=== PATIENT | male | born 1945 | race Caucasian/White ===

== ENCOUNTER 2019-06-02 15:32 | Inpatient (IN) | payer MEDICARE, MEDICAID, SELFPAY ==
[2019-06-02] VITALS (11 sets, daily range): BP systolic 107–180; BP diastolic 66–104; PULSE 80–122; RESP 16–22; TEMP 36.6–37; O2SAT 93–100; BMI 28.0
--- NOTE | 2019-06-02 15:38 | ED_ITS ---
Entered by Renuka Dorado, acting as scribe for Mihir Gipson DO HPI - SOB/Dyspnea General: Chief Complaint: Shortness of Breath/Dyspnea Stated Complaint: SOB x 1 week Time Seen by Provider: 06/02/19 15:41 Source: patient and EMS Mode of arrival: EMS Limitations: no limitations History of Present Illness: MD elicited complaint: shortness of breath Pertinent past history: COPD and asthma Onset (ago): week(s) (1 week ago) Context: recent illness Timing: constant and progressively worsening Exacerbating factors: exertion, movement and deep breaths Relieving factors: nothing Known history of: COPD Associated symptoms: Reports abdominal pain Review of Systems GI: Reports: abdominal pain [facility] ED PFSH: Social History Smoking and tobacco status: current every day smoker cigarettes Packs smoked per day: 1 Alcohol intake: former Lives independently: Yes History of recent travel: No Course Vital Signs: Vital signs: Vital Signs Temperature 97.8 F 06/02/19 15:36 Pulse Rate 118 H 06/02/19 16:49 Respiratory Rate 20 H 06/02/19 16:49 Blood Pressure 107/76 06/02/19 15:36 Pulse Oximetry 94 06/02/19 16:49 MDM - SOB/Dyspnea Lab Data: Labs: Lab Results 06/02/19 06/02/19 06/02/19 Range/Units 16:20 16:20 16:37 WBC 9.8 (4.0-10.0) 10^3/ uL RBC 3.57 L (4.1-5.3) 10^6/u L Hgb 11.4 L (11.7-16.6) g/dL Hct 36.1 L (42.0-52.0) % MCV 101.1 H (80-94) fL MCH 31.9 (28.0-34.0) pg MCHC 31.6 (30.0-36.0) g/dL RDW 13.3 (12.1-15.1) % Plt Count 416 H (130-400) 10^3/c mm MPV 8.9 (7.4-10.4) fL Neut % (Auto) 75.7 % Lymph % (Auto) 17.1 % Ware % (Auto) 6.0 % Eos % (Auto) 0.3 % Baso % (Auto) 0.6 % Neut # (Auto) 7.4 (1.8-7.7) 10^3/u L Lymph # (Auto) 1.7 (0.8-4.8) 10^3/u L Ware # (Auto) 0.6 (0.2-0.9) 10^3/u L Eos # (Auto) 0.0 (0.0-0.8) 10^3/u L Baso # (Auto) 0.1 (0.0-0.1) 10^3/u L Nucleated RBC % (a uto) 0 % Nucleated RBCs # 0.0 /100WBC Sodium 135 L (136-145) mmol/L Potassium 4.9 (3.5-5.1) mmol/L Chloride 100 (98-107) mmol/L Carbon Dioxide 22 (22-29) mmol/L Anion Gap 17.9 (5-19) BUN 24 H (8-23) mg/dL Creatinine 1.4 H (0.7-1.2) mg/dL Glucose 136 H (65-115) mg/dL Calculated Osmolal ity 279 L (285-295) mOsm/k g Calcium 9.8 (8.5-10.5) mg/dL Total Bilirubin 0.8 (0.15-1.2) mg/dL AST 21 (0-40) U/L ALT 18 (0-41) U/L Alkaline Phosphata se 76 (40-130) IU/L NT-Pro-B Natriuret Pep 17280 H (0-125) pg/mL Total Protein 7.1 (6.6-8.7) g/dL Albumin 3.8 (3.5-5.2) g/dL Globulin 3.3 (1.3-4.6) g/dL Influenza Type A A g Negative (Negative) POC Influenza B Ag Negative (Negative) Discharge Plan Discharge Prescriptions: No Action aspirin 325 mg tablet 325 mg PO DAILY RF: 0 hydrocodone-acetaminophen 10-325 mg tablet 1 tab PO Q6H PRNRF: 0 ascorbate calcium (vitamin C) 500 mg tablet 1 gm PO DAILY RF: 0 ProAir RespiClick 90 mcg/actuation aerosol powdr breath activated 2 inh INHALATION Q6H PRNRF: 0 Spiriva with HandiHaler 18 mcg capsule, w/inhalation device 1 cap INHALATION DAILY RF: 0 atenolol 50 mg tablet 50 mg PO DAILY RF: 0 omeprazole 20 mg capsule,delayed release(DR/EC) 20 mg PO DAILY RF: 0 Coding Level of Care Code ED [facility] Helper Induction for Chg Fwtramaine The documentation recorded by the Estrada sanchez Bridget Annette, accurately reflects the service I personally performed and the decisions made by , Mihir Gipson, Jun 02, 2019 15:32
--- NOTE | 2019-06-02 16:07 | XR_ITS ---
WS: [id number] Portable AP upright chest, 06/02/2019 Clinical Data: dyspnea Comparison: None. Findings: The heart is enlarged and the pulmonary vascularity is increased. No nodules, masses or eff usions are seen. The aortic arch and descending aorta show calcification and tortuosity. No pneumonia or pneumothorax is seen. XR/XR chest 1V portable [id number] Impression: Moderate congestive heart failure.
[2019-06-02 16:33] LABS: Basophils # 0.1 10^3/uL (0.0-0.1); Basophils % 0.6 %; Eosinophils % 0.3 %; Hematocrit 36.1 % (42.0-52.0); Hemoglobin 11.4 g/dL (11.7-16.6); Lymphocytes # 1.7 10^3/uL (0.8-4.8); Lymphocytes % 17.1 %; Mean Corpuscular HGB Conc 31.6 g/dL (30.0-36.0); Mean Corpuscular Hemoglobin 31.9 pg (28.0-34.0); Mean Corpuscular Volume 101.1 fL (80-94); Mean Platelet Volume 8.9 fL (7.4-10.4); Monocytes # 0.6 10^3/uL (0.2-0.9); Neutrophils # 7.4 10^3/uL (1.8-7.7); Neutrophils % 75.7 %; Nucleated Red Blood Cells % 0 %; Platelet Count 416 10^3/cmm (130-400); Red Blood Count 3.57 10^6/uL (4.1-5.3); Red Cell Distribution Width 13.3 % (12.1-15.1); White Blood Count 9.8 10^3/uL (4.0-10.0)
[2019-06-02] MEDS: ipratropium-albuterol 3 mL Neb INHALATION ×2 (16:45→22:21)
[2019-06-02 16:53] LABS: Alanine Aminotransferase 18 U/L (0-41); Albumin Level 3.8 g/dL (3.5-5.2); Alkaline Phosphatase 76 IU/L (40-130); Anion Gap 17.9 (5-19); Aspartate Amino Transferase 21 U/L (0-40); Blood Urea Nitrogen 24 mg/dL (8-23); Calcium 9.8 mg/dL (8.5-10.5); Carbon Dioxide 22 mmol/L (22-29); Chloride 100 mmol/L (98-107); Globulin 3.3 g/dL (1.3-4.6); Glucose 136 mg/dL (65-115); NT Pro B Type Natriuretic Pept 21040 pg/mL (0-125); Osmolality Calculated 279 mOsm/kg (285-295); Potassium 4.9 mmol/L (3.5-5.1); Sodium 135 mmol/L (136-145); Total Bilirubin 0.8 mg/dL (0.15-1.2); Total Protein 7.1 g/dL (6.6-8.7)
[2019-06-02 17:13] LABS: Influenza A by IFA Negative (Negative); Influenza B by IFA Negative (Negative)
--- NOTE | 2019-06-02 17:25 | PC.NURSE ---
EKG performed and shown to ED physician.
[2019-06-02] MEDS: FUROsemide 10 mg/mL SDV 10mL 80 MG IVP (17:36)
--- NOTE | 2019-06-02 18:31 | PM.HP ---
Providers/Chief Complaint Admitting Physician: Lizbeth Bradley MD Primary Care Provider: Mary Zimmerman Chief Complaint: SOB x 1-2 weeks History of Present Illness Dennis Mcintosh is a 73 year old male with PMHx of COPD, Chronic smoker, Chronic atrial fibrillation, Chronic back pain; presents from home for evaluation of worsening shortness of breath, symptoms have been ongoing for 4 months but have significantly worsened over the past week and a half. He initially had shortness of breath particularly with exertion but this has increased to the point where he has shortness of breath at rest, is unable to sleep, maintain a supine position. He states that he was treated for pneumonia approximately 4 months ago has had a chronic cough since then, with some sputum production. Cough frequency/intensity or sputum production have not changed. He is not oxygen dependent at baseline. He is aware of his history of COPD and uses inhalers but does not report a history of heart disease or CHF. Medication list shows atenolol and aspirin presumably for treatment of A. fib. He recently has had difficulty taking his medications due to abdominal discomfort. He is a chronic smoker though over the past several days has not been able to smoke due to not feeling well. He denies having had any fever/chills, chest pain, dizziness/lightheadedness though when his shortness of breath gets worse he has a period where he feels like he will pass out though has not had any true syncopal episodes. He has had some intermittent lower extremity edema and some bloating in his abdomen. No baseline echo to reference on review of medical record. Work-up done in the ER indicates anemia with a hemoglobin of 11.4 normal white count at 9.8 BUN of 24, creatinine of 1.4, blood sugar of 136, BNP greater than 21,000, chest x-ray showing moderate CHF, EKG showing A. fib with current heart rate in the 120s. He has received an albuterol neb treatment as well as an 80 mg dose of IV Lasix. I have requested Cardizem 15 mg IV as patient continues to have A. fib with RVR. Patient responded well to this with heart rate being better controlled in the 80s. Will admit him to [facility] with telemetry for continued IV diuresis. Review of Systems Const: Reports: change in appetite (decreased appetite), fatigue and malaise; Denies: fever or chills Eyes: Denies: change in vision ENMT: Reports: dry mouth; Denies: painful swallowing Card: Reports: swelling of feet/ankles, shortness of breath on exertion and shortness of breath when lying down; Denies: chest pain, palpitations or lightheadedness Resp: Reports: productive cough (clear sputum, chronic); Denies: shortness of breath GI: Reports: abdominal pain, diarrhea and bloating; Denies: nausea, vomiting, vomiting blood or blood in stool : Reports: urinary frequency, urinary dribbling and other (incomplete emptying); Denies: painful urination Musc: Reports: back pain (chronic) Skin/Breast: Denies: rash Neuro: Denies: numbness in extremities, weakness in extremities or frequent falls Psych: Denies: anxiety Medications/Allergies Home Medications Medication Instructions Recorded Confirmed Last Taken Type bisacodyl 5 mg PO DAILY 06/02/19 06/02/19 06/01/19 History guaifenesin [Mucus Relief] 200 mg PO Q4H PRN 06/02/19 06/02/19 06/01/19 History multivitamin [Multiple Vitamins] 1 tab PO DAILY 06/02/19 06/02/19 06/01/19 History vitamin A 10,000 unit PO DAILY 06/02/19 06/02/19 06/01/19 History Allergies Allergy/AdvReac Type Severity Reaction Status Date / Time No Known Allergies Allergy Verified 06/02/19 15:41 PFSH Acute PFSH: Medical History (Updated 06/02/19 @ 18:51 by Lizbeth Bradley MD) A-fib Anxiety Cataracts, bilateral Chronic back pain Depression GERD (gastroesophageal reflux disease) Hiatal hernia History of prostate cancer treated with radiation Hypertension Family History Father CAD (coronary artery disease) Mother Diabetes Social History (Updated 06/02/19 @ 18:42 by Lizbeth Bradley MD) Smoking and tobacco status: current every day smoker cigarettes Packs smoked per day: 1 Years cigarettes smoked: 40 Alcohol intake: former Former alcohol use details: quit 6-7 yrs ago Lives independently: Yes History of recent travel: No Vitals/I&O/Wt Last Vital Signs Temp 97.8 F 06/02/19 15:36 Pulse 118 H 06/02/19 16:49 Resp 20 H 06/02/19 16:49 BP 107/76 06/02/19 15:36 Pulse Ox 94 06/02/19 16:49 Weight last 48 hrs Weight 81.193 kg Physical Exam Const: COMMON NORMALS: no apparent distress and oriented x3 GENERAL APPEARANCE: cooperative and comfortable NUTRITIONAL APPEARANCE: overweight ORIENTATION/CONSCIOUSNESS: Yes awake HENMT: COMMON NORMALS: normocephalic, head/scalp atraumatic, hearing grossly normal bilaterally and moist oral mucous membranes HEAD & SCALP: normocephalic and atraumatic Eye: COMMON NORMALS: PERRL, EOMs intact bilaterally and conjunctivae normal CONJUNCTIVA: Yes conjunctivae normal PUPIL: Yes PERRL Neck/C-Spine: COMMON NORMALS: full ROM GENERAL: Yes normal visual inspection and Yes trachea midline Resp: COMMON NORMALS: normal respiratory effort, no retractions and no use of accessory muscles EFFORT & INSPECTION: Yes able to speak in complete sentences, Yes symmetric chest movement and No tachypneic AUSCULTATION: crackles and diminished lung sounds bilateral OTHER: -on 2-3 L NC, 94% Cardio: COMMON NORMALS: regular rate, regular rhythm, S1 normal heart sound, S2 normal heart sound and no murmurs RATE: tachycardic (intermittently) RHYTHM: abnormal rhythm irregularly irregular HEART SOUNDS: S1 normal and S2 normal GI: COMMON NORMALS: normal to inspection, nondistended, normoactive bowel sounds, soft to palpation and non-tender INSPECTION: Yes central obesity PALPATION: Yes soft Extremity: COMMON NORMALS: normal to inspection and full ROM; negative for no pedal edema NARRATIVE EXTREMITY EXAM: -1+ pitting edema of bilateral LEs Neuro: COMMON NORMALS: oriented x3, moves all extremities, no focal motor deficits and no sensory deficits noted Psych: COMMON NORMALS: mental status grossly normal, thought process normal, cooperative, affect normal and speech normal SPEECH: Yes normal speech THOUGHT PROCESS: normal thought process Skin: COMMON NORMALS: no rashes or lesions noted, no jaundice, no petechiae and no mottling GENERAL SKIN EXAM: no rashes or lesions noted Data : 06/02/19 16:20 06/02/19 16:20 Micro: Microbiology 06/02/19 16:25 Blood Culture - Preliminary Blood SPECIMEN COLLECTED 06/02/19 16:20 Blood Culture - Preliminary Blood SPECIMEN COLLECTED A&P Assessment and plan (1) Acute exacerbation of CHF (congestive heart failure): -Clinically appears to have acute CHF exacerbation as evidenced by increased shortness of breath, lower extremity edema, significant BNP elevation (>21,000) and evidence of fluid overload on imaging -Received 80 mg dose of IV Lasix in ER; continue IV diuresis with Bumex due to noted renal impairment -closely monitor renal function, lytes -daily weights, monitor Is & Os -no baseline Echo on record, ordered -telemetry monitoring -monitor vital signs -monitor respiratory status, supplemental oxygen as needed Status: Acute Qualifiers: Heart failure type: unspecified Qualified Code(s): I50.9 - Heart failure, unspecified Code(s): I50.9 - Heart failure, unspecified (2) Atrial fibrillation with RVR: -has known hx of atrial fibrillation, on Atenolol and full dose ASA -telemetry monitoring -given 15 mg dose of IV Cardizem with rate control -A.fib on ECG -hold atenolol and start on metoprolol -Echo ordered Status: Acute Code(s): I48.91 - Unspecified atrial fibrillation (3) COPD (chronic obstructive pulmonary disease): -has known hx of COPD, not oxygen dependent at baseline -SOB likely due to acute CHF exacerbation rather than COPD exacerbation -Neb treatments, supplemental oxygen as needed -hold off on steroids, abx at this time Status: Acute Qualifiers: COPD type: unspecified COPD Qualified Code(s): J44.9 - Chronic obstructive pulmonary disease, unspecified Code(s): J44.9 - Chronic obstructive pulmonary disease, unspecified Additional A&P Information -Chronic smoker; 1 PPD x > 40 yrs -former EtOH abuse; quit 6-7 yrs ago -Chronic low back pain; on opiates -GERD; on PPI -hx of prostate cancer treated with radiation therapy; has LUTs (dribbling, incomplete emptying, urgency); start on Flomax -Acute macrocytic anemia; monitor H/H; will continue full dose ASA for now -cardiac diet as tolerated -GI ppx with PPI -DVT ppx with lovenox Attestations Medical Necessity Statement*: [facility] stay will require greater than 2 midnights for management of acute CHF exacerbation and A. fib with RVR, needs IV diuresis and telemetry monitoring respectively. Time Spent in Patient Care: Greater than 35 minutes (>than 50% of time spent in counselling and/or direct pt care on unit). Coding Level of Care Code Acute Pediatric Physician for Vida Barr Diagnoses Acute exacerbation of CHF (congestive heart failure) I50.9 Heart failure type: unspecified Atrial fibrillation with RVR I48.91 COPD (chronic obstructive pulmonary disease) J44.9 COPD type: unspecified COPD
--- NOTE | 2019-06-02 19:14 | PC.NURSE ---
Introduced self to patient and initiated vital signs. Patient presents A&O x 4. ABCs intact, MAEW and agreeable to treatment. Respirations are even but somewhat labored. Pt states that the chief complaint for the ER visit today is due to shortness of breath. Pt also complaining of pain in legs, hips, and back. Pt denies any vision disturbances or lightheadedness. Bed left in lowest position in semi-fowlers with side rails up.Reassured patient of needs and will continue to monitor. Awaiting room assignment.
--- NOTE | 2019-06-02 19:16 | PC.NURSE ---
Fluids not given per MD. Pt recently given lasix.
[2019-06-02] MEDS: HYDROcodone-acetaminophen 10-325 mg Tablet 1 TAB PO (21:18)
[2019-06-02] MEDS: bumetanide 0.25 mg/mL SDV 10 mL 1 MG IV (21:20)
[2019-06-02] MEDS: enoxaparin 40 mg/0.4 mL Syringe SUBCUT (21:20)
[2019-06-03] VITALS (11 sets, daily range): BP systolic 78–113; BP diastolic 51–77; PULSE 92–120; RESP 16–20; TEMP 36.1–37; O2SAT 94–98
[2019-06-03] MEDS: dilTIAZem 30 mg Tablet PO (03:02)
[2019-06-03 05:11] LABS: Basophils # 0.1 10^3/uL (0.0-0.1); Basophils % 0.6 %; Eosinophils # 0.1 10^3/uL (0.0-0.8); Eosinophils % 0.5 %; Hemoglobin 12.1 g/dL (11.7-16.6); Mean Corpuscular HGB Conc 32.7 g/dL (30.0-36.0); Mean Corpuscular Hemoglobin 32.8 pg (28.0-34.0); Mean Corpuscular Volume 100.3 fL (80-94); Mean Platelet Volume 9.3 fL (7.4-10.4); Monocytes # 0.7 10^3/uL (0.2-0.9); Monocytes % 6.9 %; Neutrophils # 6.8 10^3/uL (1.8-7.7); Neutrophils % 63.7 %; Nucleated Red Blood Cells % 0 %; Platelet Count 425 10^3/cmm (130-400); Red Blood Count 3.69 10^6/uL (4.1-5.3); Red Cell Distribution Width 13.3 % (12.1-15.1); White Blood Count 10.6 10^3/uL (4.0-10.0)
[2019-06-03 05:27] LABS: Anion Gap 19.1 (5-19); Blood Urea Nitrogen 25 mg/dL (8-23); Carbon Dioxide 27 mmol/L (22-29); Chloride 97 mmol/L (98-107); Glucose 107 mg/dL (65-115); Magnesium 2.1 mg/dL (1.7-2.3); Osmolality Calculated 285 mOsm/kg (285-295); Potassium 4.1 mmol/L (3.5-5.1); Sodium 139 mmol/L (136-145)
[2019-06-03 05:53] LABS: Chol HDL Ratio 5.13 mg/dL (1.0-5.00); Cholesterol 200 mg/dL (0-200); HDL Cholesterol 39 mg/dL (60-100); LDL Cholesterol Calculated 134 mg/dL (50-129); LDL HDL Ratio 3.44 RATIO (0.00-3.22); Thyroid Stimulating Hormone 1.17 uIU/mL (0.27-4.20); Triglycerides 134 mg/dL (0-150)
[2019-06-03 06:08] LABS: Folate Level 15.1 ng/mL (4.5-32.2)
[2019-06-03 06:29] LABS: Vitamin B12 369 pg/mL (232-1245)
[2019-06-03] MEDS: HYDROcodone-acetaminophen 10-325 mg Tablet 1 TAB PO ×2 (06:42→19:44)
[2019-06-03 06:59] LABS: Estmated Average Glucose 123; Hemoglobin A1C 5.9 % (4.0-6.0)
[2019-06-03] MEDS: bumetanide 0.25 mg/mL SDV 10 mL 1 MG IV (08:08)
[2019-06-03] MEDS: multivitamin therapeutic Tablet 1 TAB PO (08:09)
[2019-06-03] MEDS: pantoprazole DR 40 mg Tablet PO (08:09)
[2019-06-03] MEDS: bisacodyl 5 mg Tablet PO (08:09)
[2019-06-03] MEDS: aspirin 325 mg Tablet PO (08:09)
[2019-06-03] MEDS: metoprolol tartrate 25 mg Tablet PO ×2 (08:09→18:14)
[2019-06-03] MEDS: tamsulosin 0.4 mg Capsule PO (08:09)
--- NOTE | 2019-06-03 11:20 | PC.RESP ---
Patient given Pulmonary Rehab and Smoking Cessation information.
--- NOTE | 2019-06-03 11:31 | ECG_ITS ---
Measurements Intervals [place] Rate: 104 P: [place]: 0 QRS: 260 QRSD: 83 T: 255 QT: 334 QTc: 441 ATRIAL FIBRILLATION WITH RAPID VENTRICULAR RESPONSE WITH ABERRANT CONDUCTION OR VENTRICULAR PREMATURE COMPLEXES MARKED RIGHT AXIS DEVIATION [QRS AXIS > 100] POSSIBLE RIGHT VENTRICULAR CONDUCTION DELAY [RSR (QR) IN V1/V2] ANTERIOR MYOCARDIAL INFARCTION [40+ ms Q WAVE AND/OR ST/T ABNORMALITY IN V3/V4], OF INDETERMINATE AGE No previous ECG available for comparison Electronically Signed On 06-03-2019 18:23:43 CDT by Bernardino Saab M.D. [email or web address]
--- NOTE | 2019-06-03 11:32 | P.PN_ITS ---
Subjective Subjective: Interval history: AM labs noted, no acute overnight events reported, looks like he is breathing easier though continues to be dyspneic with exertion. On 3L NC, renal function stable. Noted hypotension, manual BP-90/60, will hold diuretics and give 500 mL bolus, recheck BP. Denies dizziness/lightheadedness. Wants to get salt with his food. Noted atrial fibrillation with intermittent RVR (up to 120) on review of telemetry. Medications: Reviewed: Yes Medication Review Details: Active Medications Generic Name Dose Route Start Last Admin Trade Name Freq PRN Reason Stop Dose Admin Acetaminophen 650 mg 06/02/19 20:35 Tylenol PO Q6H PRN Mild/Mod Pain Or Temp >/= 101 Hydrocodone Bitart /Acetaminophen 1 tab 06/02/19 20:35 06/03/19 06:42 [place] 10-325 Mg PO 1 tab Q6H PRN Administration SEVERE PAIN Albuterol/Ipratrop ium 3 ml 06/02/19 20:35 06/02/19 22:21 Duoneb INHALATION 3 ml Q6H PRN Administration SHORTNESS OF LULY TH Aspirin 325 mg 06/03/19 09:00 06/03/19 08:09 Aspirin PO 325 mg DAILY STEPHY Administration Bisacodyl 5 mg 06/03/19 09:00 06/03/19 08:09 Dulcolax PO 5 mg DAILY STEPHY Administration Bumetanide 1 mg 06/02/19 20:35 06/03/19 08:08 Bumex IV 1 mg Q12H STEPHY Administration Enoxaparin Sodium 40 mg 06/02/19 20:35 06/02/19 21:20 Lovenox SUBCUT 40 mg Q24H STEPHY Administration Metoprolol Tartrat e 25 mg 06/03/19 09:00 06/03/19 08:09 Lopressor PO 25 mg BID STEPHY Administration Morphine Sulfate 2 mg 06/02/19 20:35 Morphine IVP Q4H PRN SEVERE PAIN Multivitamins Ther apeutic 1 tab 06/03/19 09:00 06/03/19 08:09 Multivitamin Tab PO 1 tab DAILY STEPHY Administration Non-Formulary Medi cation 200 mg 06/02/19 20:35 Guaifenesin [Muc us Relief] PO Q4H PRN Congestion Ondansetron HCl 4 mg 06/02/19 20:35 Zofran IVP Q6H PRN vomiting, or N/V if npo Pantoprazole Sodiu m 40 mg 06/03/19 09:00 06/03/19 08:09 Protonix PO 40 mg DAILY STEPHY Administration Tamsulosin HCl 0.4 mg 06/03/19 09:00 06/03/19 08:09 Flomax PO 0.4 mg DAILY STEPHY Administration No Known Allergies Allergy (Verified 06/02/19 15:41) Vitals/I&O/Wt Last Vital Signs Temp 98.3 F 06/03/19 11:13 Pulse 95 06/03/19 11:13 Resp 18 06/03/19 11:13 BP 78/57 06/03/19 11:13 Pulse Ox 97 06/03/19 11:13 06/02/19 06/03/19 06/03/19 22:59 06:59 14:59 Intake Total 200 / 200 120 / 120 Balance 200 / 200 120 / 120 Weight last 48 hrs Weight 80.83 kg Weight 80.371 kg Weight 81.193 kg Physical Exam Const: COMMON NORMALS: no apparent distress and oriented x3 GENERAL APPEARANCE: cooperative and comfortable NUTRITIONAL APPEARANCE: overweight ORIENTATION/CONSCIOUSNESS: Yes awake HENMT: COMMON NORMALS: normocephalic, head/scalp atraumatic, hearing grossly normal bilaterally and moist oral mucous membranes HEAD & SCALP: normocephalic and atraumatic Eye: COMMON NORMALS: PERRL, EOMs intact bilaterally and conjunctivae normal CONJUNCTIVA: Yes conjunctivae normal PUPIL: Yes PERRL Neck/C-Spine: COMMON NORMALS: full ROM GENERAL: Yes normal visual inspection and Yes trachea midline Resp: COMMON NORMALS: normal respiratory effort, no retractions and no use of accessory muscles EFFORT & INSPECTION: Yes able to speak in complete sentences, Yes symmetric chest movement and No tachypneic AUSCULTATION: crack les and diminished lung sounds bilateral OTHER: -on 3 L NC, 97% Cardio: COMMON NORMALS: regular rate, S1 normal heart sound, S2 normal heart sound and no murmurs RATE: regular rate and tachycardic (intermittently) RHYTHM: abnormal rhythm irregularly irregular HEART SOUNDS: S1 normal and S2 normal GI: COMMON NORMALS: normal to inspection, nondistended, normoactive bowel sounds, soft to palpation and non-tender INSPECTION: Yes central obesity PALPATION: Yes soft Extremity: COMMON NORMALS: normal to inspection, full ROM and no clubbing, cyanosis or edema; negative for no pedal edema NARRATIVE EXTREMITY EXAM: -scattered varicosities on bilateral legs Neuro: COMMON NORMALS: oriented x3, moves all extremities, no focal motor deficits and no sensory deficits noted Psych: COMMON NORMALS: mental status grossly normal, thought process normal, cooperative, affect normal and speech normal SPEECH: Yes normal speech THOUGHT PROCESS: normal thought process Skin: COMMON NORMALS: no rashes or lesions noted, no jaundice, no petechiae and no mottling GENERAL SKIN EXAM: no rashes or lesions noted Data : 06/03/19 04:13 06/03/19 04:13 Micro: Microbiology 06/02/19 16:25 Blood Culture - Preliminary Blood SPECIMEN COLLECTED 06/02/19 16:20 Blood Culture - Preliminary Blood SPECIMEN COLLECTED A&P Assessment and plan (1) Acute exacerbation of CHF (congestive heart failure): -Clinically appears to have acute CHF exacerbation as evidenced by increased shortness of breath, lower extremity edema, significant BNP elevation (>21,000) and evidence of fluid overload on imaging -Received 80 mg dose of IV Lasix in ER; continue IV diuresis with Bumex due to noted renal impairment; hold this for now given hypotension this AM. -closely monitor renal function, lytes -daily weights, monitor Is & Os -no baseline Echo on record, ordered -telemetry monitoring -monitor vital signs -continue to monitor respiratory status, supplemental oxygen as needed Status: Acute Qualifiers: Heart failure type: unspecified Qualified Code(s): I50.9 - Heart failure, unspecified Code(s): I50.9 - Heart failure, unspecified (2) Atrial fibrillation with RVR: -has known hx of atrial fibrillation, on Atenolol and full dose ASA -telemetry monitoring -given 15 mg dose of IV Cardizem with rate control -A.fib on ECG -hold atenolol and started on metoprolol -Echo ordered Status: Acute Code(s): I48.91 - Unspecified atrial fibrillation (3) COPD (chronic obstructive pulmonary disease): -has known hx of COPD, not oxygen dependent at baseline -SOB likely due to acute CHF exacerbation rather than COPD exacerbation -Neb treatments, supplemental oxygen as needed -hold off on steroids, abx at this time Status: Acute Qualifiers: COPD type: unspecified COPD Qualified Code(s): J44.9 - Chronic ob structive pulmonary disease, unspecified Code(s): J44.9 - Chronic obstructive pulmonary disease, unspecified Additional A&P Information -Chronic smoker; 1 PPD x > 40 yrs -former EtOH abuse; quit 6-7 yrs ago -Chronic low back pain; on opiates -GERD; on PPI -hx of prostate cancer treated with radiation therapy; has LUTs (dribbling, incomplete emptying, urgency); start on Flomax -Acute macrocytic anemia; monitor H/H; will continue full dose ASA for now -cardiac diet as tolerated -GI ppx with PPI -DVT ppx with lovenox -Dispo: home -Code status: FULL code Attestations Medical Necessity Statement*: Patient requires hospitalization for continued management of acute CHF exacerbation on diuresis, and atrial fibrillation with intermittent RVR. Time Spent in Patient Care: 16 - 35 minutes (>than 50% of time spent in counselling and/or direct pt care on unit) . Coding Level of Care Code Acute Supervisor Steno Pool for Vida Barr Diagnoses Acute exacerbation of CHF (congestive heart failure) I50.9 Heart failure type: unspecified Atrial fibrillation with RVR I48.91 COPD (chronic obstructive pulmonary disease) J44.9 COPD type: unspecified COPD
[2019-06-03 13:24] LABS: D Dimer 2.31 ug/mIFEU (0-0.59)
--- NOTE | 2019-06-03 14:18 | PC.NURSE ---
In patient's room. Spoke with patient's son at this time. Patient gave me his verbal permission. Patient's son is wanting to come and visit his father. Explained to patient's son that they are not allowing any visitors at this time for precautions regarding the COVID-19. Patient's son verbalized understanding.
--- NOTE | 2019-06-03 14:34 | NM_ITS ---
WS: [id number] Ventilation/perfusion lung scan, 06/03/2019 Clinical Data: elevated d-dimer, evaluate for PE Comparison: Portable chest, 06/02/2019 Findings: Ventilation lung scan: 32.4 mCi of technetium 99m DTPA were utilized to visualize the lungs. The lung s filled normally. There are no ventilation defects. No subsegmental defects could be seen. Perfusion lung scan: After the intravenous injection of 5.1 mCi of technetium 99m MAA multiple sequen tial imaging of the lungs were obtained. The distribution of the radionuclide was normal. There were no perfusion filling defects. No subsegmental defects could be seen. NM/NM pul vent and perfus* [id number] Impression: Negative ventilation lung scan. Impression: Negative perfusion lung scan. Low probability of pulmonary embolic disease.
--- NOTE | 2019-06-03 15:15 | PC.NURSE ---
Patient taken to Nuclear Medicine at this time.
--- NOTE | 2019-06-03 17:32 | PM.CONSULT ---
Providers/Reason For Consult Consulting Physican/Specialty*: Dr. Hernandez, cardiology Reason for Consult*: Newly diagnosed congestive heart failure. Attending Physician: Lizbeth Bradley MD History of Present Illness History of Present Illness Dennis Mcintosh is a 73 year old male with past medical history of COPD, chronic active smoker, h/o alcohol abuse (quit 3-4 years ago) and history of atrial fibrillation at least for last 3-4 years on aspirin and atenolol. He was hospitalized with worsening shortness of breath for past several weeks, orthopnea, PND and CALDERON with minimal exertion for last 1-2 weeks. He was treated for pneumonia 3 to 4 months back and was treated with antibiotics. He denies any recent URI or UTI-like symptoms. Denies any chest discomfort. Chest x-ray showed pulmonary congestion and NT proBNP greater than 21,000. EKG showed atrial fibrillation with rapid ventricular response and aberrantly conducted beats. He received lasix 80 mg IV x 1 and bumex earlier this morning. UO not documented. He underwent echocardiogram that showed severely decreased LV function with RWMA. I have been asked to assist in further management. Review of Systems Const: Denies: fever or chills Eyes: Denies: change in vision ENMT: Denies: nasal discharge or nasal congestion Card: Reports: irregular heart rhythm, edema, shortness of breath on exertion and shortness of breath when lying down; Denies: chest pain, syncope or pre-syncope Resp: Reports: shortness of breath, productive cough (whitish phlegm) and wheezing; Denies: coughing up blood GI: Denies: abdominal pain, nausea, vomiting, blood in stool or black tarry stool : Denies: difficulty urinating, painful urination or blood in urine Musc: Reports: extremity swelling Skin/Breast: Denies: rash Neuro: Denies: weakness in extremities or slurred speech Psych: Denies: anxiety or depression Endo: Denies: change in body appearance Jack/Lymph: Denies: petechiae or purpura All/Imm: Denies: throat swelling or tongue swelling Meds/Allergies Home Medications and Allergies Home Medications Medication Instructions Recorded Confirmed Type albuterol sulfate 90 mcg/actuation 2 inh INHALATION Q6H PRN 05/04/19 06/02/19 History breath activated powder inhaler atenolol 50 mg tablet 50 mg PO DAILY 05/04/19 06/02/19 History omeprazole 20 mg capsule,delayed 20 mg PO DAILY 05/04/19 06/02/19 History release tiotropium bromide 18 mcg capsule 1 cap INHALATION DAILY 05/04/19 06/02/19 History with inhalation device ascorbate calcium (vitamin C) 500 1 gm PO DAILY tab 05/07/19 06/02/19 History mg tablet aspirin 325 mg tablet 325 mg PO DAILY 05/07/19 06/02/19 History hydrocodone 10 mg-acetaminophen 1 tab PO Q6H PRN 05/07/19 06/02/19 History 325 mg tablet bisacodyl 5 mg PO DAILY 06/02/19 06/02/19 History guaifenesin [Mucus Relief] 200 mg PO Q4H PRN 06/02/19 06/02/19 History multivitamin [Multiple Vitamins] 1 tab PO DAILY 06/02/19 06/02/19 History vitamin A 10,000 unit PO DAILY 06/02/19 06/02/19 History Allergies Allergy/AdvReac Type Severity Reaction Status Date / Time No Known Allergies Allergy Verified 06/02/19 15:41 Current Medications Current Medications Generic Name Dose Route Start Last Admin Trade Name Freq PRN Reason Stop Dose Admin Hydrocodone Bitart/Acetaminophen 1 tab 06/02/19 20:35 06/03/19 06:42 [place] 10-325 Mg PO 1 tab Q6H PRN Administration SEVERE PAIN Albuterol/Ipratropium 3 ml 06/02/19 20:35 06/02/19 22:21 Duoneb INHALATION 3 ml Q6H PRN Administration SHORTNESS OF BREATH Aspirin 325 mg 06/03/19 09:00 06/03/19 08:09 Aspirin PO 325 mg DAILY STEPHY Administration Bisacodyl 5 mg 06/03/19 09:00 06/03/19 08:09 Dulcolax PO 5 mg DAILY STEPHY Administration Bumetanide 1 mg 06/02/19 20:35 06/03/19 08:08 Bumex IV 1 mg Q12H STEPHY Administration Enoxaparin Sodium 40 mg 06/02/19 20:35 06/02/19 21:20 Lovenox SUBCUT 40 mg Q24H STEPHY Administration Metoprolol Tartrate 25 mg 06/03/19 09:00 06/03/19 08:09 Lopressor PO 25 mg BID STEPHY Administration Multivitamins Therapeutic 1 tab 06/03/19 09:00 06/03/19 08:09 Multivitamin Tab PO 1 tab DAILY STEPHY Administration Pantoprazole Sodium 40 mg 06/03/19 09:00 06/03/19 08:09 Protonix PO 40 mg DAILY STEPHY Administration Tamsulosin HCl 0.4 mg 06/03/19 09:00 06/03/19 08:09 Flomax PO 0.4 mg DAILY STEPHY Administration PFSH Acute PFSH: Medical History A-fib Anxiety Cataracts, bilateral Chronic back pain Depression GERD (gastroesophageal reflux disease) Hiatal hernia History of prostate cancer treated with radiation Hypertension Family History Father CAD (coronary artery disease) Mother Diabetes Social History (Updated 06/02/19 @ 18:42 by Lizbeth Bradley MD) Smoking and tobacco status: current every day smoker cigarettes Packs smoked per day: 1 Years cigarettes smoked: 40 Alcohol intake: former Former alcohol use details: quit 6-7 yrs ago Substance/Drug Use: current Substance/Drug use frequency: Special occassions/opportunity only Substance/Drug use type: Marijuana Lives independently: Yes History of recent travel: No Vitals/I&O/Wt Last Vital Signs Temp 98.3 F 06/03/19 16:45 Pulse 114 H 06/03/19 16:45 Resp 18 06/03/19 16:45 BP 91/58 06/03/19 16:45 Pulse Ox 97 06/03/19 16:45 06/03/19 06/03/19 06/03/19 06:59 14:59 22:59 Intake Total 200 / 200 180 / 180 Balance 200 / 200 180 / 180 Weight last 48 hrs Weight 178 lb 3.2 oz Weight 177 lb 3 oz Weight 179 lb Physical Exam Const: COMMON NORMALS: no apparent distress, average body habitus, oriented x3, alert and well nourished GENERAL APPEARANCE: cooperative, comfortable, well kempt and well developed ORIENTATION/CONSCIOUSNESS: Yes oriented to person, Yes oriented to place and Yes oriented to time HENMT: COMMON NORMALS: normocephalic, head/scalp atraumatic, hearing grossly normal bilaterally, external ears normal, external nose normal and moist oral mucous membranes HEAD & SCALP: normocephalic and atraumatic FACE & SINUS: face symmetric NOSE: external nose normal EXTERNAL EAR: Yes external ears normal MOUTH: oral and palatal mucosa normal Eye: COMMON NORMALS: PERRL, EOMs intact bilaterally and conjunctivae normal CONJUNCTIVA: Yes conjunctivae normal SCLERA: sclerae normal PUPIL: Yes PERRL Neck/C-Spine: COMMON NORMALS: no lymphadenopathy, supple and no JVD; negative for no carotid bruits Resp: COMMON NORMALS: normal respiratory effort; negative for no use of accessory muscles AUSCULTATION: no crackles, rales (coarse), no rhonchi, wheezes and bronchial breath sounds (prolonged expiration) Cardio: COMMON NORMALS: no JVD and peripheral pulses 2+ throughout JUGULAR VENOUS DISTENTION: no JVD PALPATION: normal PMI and no thrill RATE: tachycardic RHYTHM: abnormal rhythm irregularly irregular HEART SOUNDS: no click, no gallops and no murmurs BRUITS: no carotid bruits PERIPHERAL PULSES: pulses 2+ throughout GI: COMMON NORMALS: normal to inspection, nondistended, normoactive bowel sounds, soft to palpation and non-tender PALPATION: Yes soft Neuro: COMMON NORMALS: oriented x3 and no focal motor deficits SENSORIUM/ORIENTATION: Yes alert, Yes oriented to person, Yes oriented to place and Yes oriented to time Psych: COMMON NORMALS: thought process normal APPEARANCE: Yes well kempt THOUGHT PROCESS: normal thought process THOUGHT CONTENT: Yes normal thought content ATTENTION/CONCENTRATION: Yes attention grossly intact Data Labs: Other Labs: Laboratory Tests 06/02/19 06/03/19 06/03/19 16:20 04:13 04:13 D-Dimer Hemoglobin A1c 5.9 Calcium 10.0 Magnesium 2.1 Alkaline Phosphata se 76 NT-Pro-B Natriuret Pep 36249 H Total Protein 7.1 Albumin 3.8 Globulin 3.3 Triglycerides Cholesterol LDL Cholesterol, C alc HDL Cholesterol Vitamin B12 Folate TSH 06/03/19 06/03/19 06/03/19 04:13 04:13 12:51 D-Dimer 2.31 H Hemoglobin A1c Calcium Magnesium Alkaline Phosphata se NT-Pro-B Natriuret Pep Total Protein Albumin Globulin Triglycerides 134 Cholesterol 200 LDL Cholesterol, C alc 134 H HDL Cholesterol 39 L Vitamin B12 369 Folate 15.1 TSH 1.17 Micro: Micro: Microbiology 06/02/19 16:25 Blood Culture - Pr eliminary Blood NEGATIVE TO YONIS E 06/02/19 16:20 Blood Culture - Pr eliminary Blood NEGATIVE TO YONIS E Imaging^: Echo: I personally reviewed and interpreted this imaging study as follows: My impression: CONCLUSIONS 1. Mildly increased left ventricular cavity size. Severely decreased left ventricular systolic function. Left ventricular ejection fraction is estimated at 25 %. There is severe hypokinesis of mid to distal anterior, mid to distal inferior, mid to distal anteroseptal, inferoseptal, inferolateral, anterolateral and apical hazel. 2. Normal right ventricular size and systolic function. 3. Mildly increased left atrial size. 4. Severe mitral valve regurgitation. 5. Moderate tricuspid valve regurgitation. 6. Severe pulmonary hypertension with pulmonary artery pressure estimated at 56 mmHg. 7. The above findings may represent multivessel coronary artery disease or stress-induced cardiomyopathy. A&P Assessment and plan (1) Acute exacerbation of CHF (congestive heart failure): Newly diagnosed CHF; No recent cardiac work up. Severely decreased LV function with RWMA. -continue diuresis with Bumex. I/O charting, fluid restriction to 1500 ml and daily weight. -Plan for [facility] once euvolemic. -BP soft, closely monitor. Status: Acute Qualifiers: Heart failure type: unspecified Qualified Code(s): I50.9 - Heart failure, unspecified Code(s): I50.9 - Heart failure, unspecified (2) Atrial fibrillation with RVR: [id number]= 2/9 , 1 for age and 1 for CHF. -Start on lovenox. increase metoprolol to 25 mg TID. May have to add digoxin. -I will avoid using amiodarone. Status: Acute Code(s): I48.91 - Unspecified atrial fibrillation (3) Severe mitral regurgitation: Status: Acute Code(s): I34.0 - Nonrheumatic mitral (valve) insufficiency (4) COPD (chronic obstructive pulmonary disease): Status: Acute Qualifiers: COPD type: unspecified COPD Qualified Code(s): J44.9 - Chronic obstructive pulmonary disease, unspecified Code(s): J44.9 - Chronic obstructive pulmonary disease, unspecified (5) Smoker: Status: Acute Code(s): F17.200 - Nicotine dependence, unspecified, uncomplicated Additional A&P Information PREETI-likely cardiorenal, f/u BMP with diuresis. Coding Level of Care Code Acute [employer] for Chg Fwd Exam Comprehensive Diagnoses Acute exacerbation of CHF (congestive heart failure) I50.9 Heart failure type: unspecified Atrial fibrillation with RVR I48.91 Severe mitral regurgitation I34.0 COPD (chronic obstructive pulmonary disease) J44.9 COPD type: unspecified COPD Smoker F17.200
[2019-06-03] MEDS: nicotine 14 mg Patch 1 PATCH TRANSDERMA (19:44)
[2019-06-03] MEDS: enoxaparin 80 mg/0.8 mL Syringe SUBCUT (19:49)
--- NOTE | 2019-06-03 20:35 | USCV_ITS ---
Dayna Dennis Age: 73 Gender: M : 1945 Exam Date: 06/03/2019 06:19 Ordering Phys: Lizbeth Bradley MD Technologist: SARAH FELDER Exam Location: [facility] – [place] Indication: ACUTE CHF EXACERBATION BP: 87 / 51 HR: 85 Rhythm: Sinus Technical Quality: Adequate MEASUREMENTS (Male / Female) Normal Values 2D ECHO LV Diastolic Diameter PLAX 4.3 cm 4.2 - 5.9 / 3.9 - 5.3 cm LV Systolic Diameter PLAX 3.6 cm IVS Diastolic Thickness 0.8 cm 0.6 - 1.0 / 0.6 - 0.9 cm IVS Systolic Thickness 0.9 cm LVPW Diastolic Thickness 1.0 cm 0.6 - 1.0 / 0.6 - 0.9 cm LVPW Systolic Thickness 1.3 cm LVOT Diameter 2.0 cm LV Ejection Fraction 2D Teich 36.3 % LV Ejection Fraction MOD 2C 43.3 % LV Ejection Fraction 2C AL 44.1 % LA Diameter 3.7 cm LA Width 4.0 cm LA Height 6.0 cm RA Width 4.7 cm RA Height 6.4 cm Aorta at Sinotubular Diameter 2.6 cm M-MODE LV Diastolic Diameter MM 4.9 cm 4.2 - 5.9 / 3.9 - 5.3 cm LV Systolic Diameter MM 4.0 cm LV Ejection Fraction MM Teich 37.7 % IVS Diastolic Thickness MM 1.0 cm 0.6 - 1.0 / 0.6 - 0.9 cm IVS Systolic Thickness MM 1.1 cm LVPW Diastolic Thickness MM 0.9 cm 0.6 - 1.0 / 0.6 - 0.9 cm LVPW Systolic Thickness MM 1.4 cm Aortic Annulus Diameter 2.9 cm LA Ao Ratio MM 1.3 MV E Point Septal Separation 0.9 cm DOPPLER AV Peak Velocity 104.0 cm/s LVOT Peak Velocity 68.0 cm/s AV Area Cont Eq vti 2.0 cm squared AV Area Cont Eq pk 2.1 cm squared MV Area PHT 4.9 cm squared MV E' Velocity 142.0 cm/s TR Peak Velocity 345.8 cm/s TR Peak Gradient 47.8 mmHg TR Mean Velocity 264.4 cm/s TR Mean Gradient 29.8 mmHg TR Velocity Time Integral 101.3 cm TV Peak E Velocity 57.0 cm/s Right Atrial Pressure 8.0 mmHg Pulmonary Artery Systolic Pressu 55.8 mmHg PV Peak Velocity 81.0 cm/s RV Acceleration Time 0.1 s RV Ejection Time 0.3 s RV AcT/ET 0.3 FINDINGS Left Ventricle Mildly increased left ventricular cavity size. Severely decreased left ventricular systolic function. Left ventricular ejection fraction is estimated at 25 %. There is severe hypokinesis of mid to distal anterior, mid to distal inferior, mid to distal anteroseptal, inferolateral, anterolateral, entire inferoseptal and apical hazel. Abnormal septal motion consistent with conduction abnormality. Rhythm precludes evaluation of diastolic function. Right Ventricle Normal right ventricular size and systolic function. Right ventricular systolic pressure 55.8 mmHg. Right Atrium Normal right atrial size. Right atrial pressure estimated at 8 mmHg. Left Atrium Mildly increased left atrial size. Mitral Valve Thickened mitral valve. No mitral valve stenosis. Severe mitral valve regurgitation. Aortic Valve Structurally normal trileaflet aortic valve. Tricuspid Valve Structurally normal tricuspid valve. No tricuspid valve stenosis. Moderate tricuspid valve regurgitation. Pulmonic Valve Pulmonic valve not well visualized. Trace pulmonary valve regurgitation. Pericardium No pericardial effusion. Aorta Normal size aortic root and proximal ascending aorta. CONCLUSIONS 1. Mildly increased left ventricular cavity size. Severely decreased left ventricular systolic function. Left ventricular ejection fraction is estimated at 25 %. There is severe hypokinesis of mid to distal anterior, mid to distal inferior, mid to distal anteroseptal, inferoseptal, inferolateral, anterolateral and apical hazel. 2. Normal right ventricular size and systolic function. 3. Mildly increased left atrial size. 4. Severe mitral valve regurgitation. 5. Moderate tricuspid valve regurgitation. 6. Severe pulmonary hypertension with pulmonary artery pressure estimated at 56 mmHg. 7. The above findings may represent multivessel coronary artery disease or stress-induced cardiomyopathy. No prior similar studies to compare. Emilia Hernandez MD (Electronically Signed) Final Date: 03 June 2019 16:52 S
[2019-06-04] VITALS (10 sets, daily range): BP systolic 100–119; BP diastolic 66–74; PULSE 83–138; RESP 16–22; TEMP 36.4–37; O2SAT 94–99
[2019-06-04] MEDS: metoprolol tartrate 25 mg Tablet PO ×3 (01:00→17:50)
--- NOTE | 2019-06-04 03:30 | PC.NURSE ---
Patient heart rate currently running 80s to mid 100s. During exertion heart rate will increase to 110s to 130s however does not maintain this rate for long periods. Telemetry Patient denies any discomforts. No distress observed.
[2019-06-04 04:42] LABS: Basophils # 0.1 10^3/uL (0.0-0.1); Eosinophils # 0.1 10^3/uL (0.0-0.8); Hemoglobin 10.7 g/dL (11.7-16.6); Lymphocytes # 2.1 10^3/uL (0.8-4.8); Lymphocytes % 27.4 %; Mean Corpuscular HGB Conc 32.4 g/dL (30.0-36.0); Mean Corpuscular Hemoglobin 31.9 pg (28.0-34.0); Mean Corpuscular Volume 98.5 fL (80-94); Mean Platelet Volume 9.3 fL (7.4-10.4); Monocytes # 0.6 10^3/uL (0.2-0.9); Monocytes % 7.7 %; Neutrophils # 4.8 10^3/uL (1.8-7.7); Neutrophils % 62.5 %; Nucleated Red Blood Cells % 0 %; Platelet Count 375 10^3/cmm (130-400); Red Blood Count 3.35 10^6/uL (4.1-5.3); Red Cell Distribution Width 12.9 % (12.1-15.1); White Blood Count 7.6 10^3/uL (4.0-10.0)
[2019-06-04 04:57] LABS: Anion Gap 17.8 (5-19); Blood Urea Nitrogen 24 mg/dL (8-23); Calcium 9.1 mg/dL (8.5-10.5); Carbon Dioxide 26 mmol/L (22-29); Chloride 94 mmol/L (98-107); Glucose 117 mg/dL (65-115); Osmolality Calculated 276 mOsm/kg (285-295); Potassium 3.8 mmol/L (3.5-5.1); Sodium 134 mmol/L (136-145)
[2019-06-04] MEDS: aspirin 325 mg Tablet PO (08:32)
[2019-06-04] MEDS: HYDROcodone-acetaminophen 10-325 mg Tablet 1 TAB PO ×2 (08:33→19:15)
[2019-06-04] MEDS: pantoprazole DR 40 mg Tablet PO (08:34)
[2019-06-04] MEDS: tamsulosin 0.4 mg Capsule PO (08:35)
[2019-06-04] MEDS: multivitamin therapeutic Tablet 1 TAB PO (08:35)
[2019-06-04] MEDS: bisacodyl 5 mg Tablet PO (08:35)
[2019-06-04] MEDS: nicotine 14 mg Patch 1 PATCH TRANSDERMA (08:36)
[2019-06-04] MEDS: ipratropium-albuterol 3 mL Neb INHALATION ×3 (09:34→20:53)
--- NOTE | 2019-06-04 10:30 | PM.PN ---
Subjective Subjective: Interval history: Morning labs noted, renal impairment persists and is slightly worse today, no documentation of urine output overnight but per his report he has voided. Per telemetry remains in A. fib with RVR. Blood pressure seems to be a little bit more stable today. Continues to require oxygen currently on 2.5 L nasal cannula. Has been afebrile. Case discussed earlier this morning with Dr. Hernandez. Is currently on therapeutic Lovenox. Sitting up in bed during my rounds earlier this afternoon, with him, has had some difficulty voiding likely secondary to BPH, emphasized need to inform nursing staff when he voids to allow for accurate ins and outs. Medications: Reviewed: Yes Medication Review Details: Active Medications Generic Name Dose Route Start Last Admin Trade Name Freq PRN Reason Stop Dose Admin Acetaminophen 650 mg 06/02/19 20:35 Tylenol PO Q6H PRN Mild/Mod Pain Or Temp >/= 101 Hydrocodone Bitart /Acetaminophen 1 tab 06/02/19 20:35 06/04/19 08:33 [place] 10-325 Mg PO 1 tab Q6H PRN Administration SEVERE PAIN Albuterol/Ipratrop ium 3 ml 06/02/19 20:35 06/04/19 09:34 Duoneb INHALATION 3 ml Q6H PRN Administration SHORTNESS OF LULY TH Aspirin 325 mg 06/03/19 09:00 06/04/19 08:32 Aspirin PO 325 mg DAILY STEPHY Administration Bisacodyl 5 mg 06/03/19 09:00 06/04/19 08:35 Dulcolax PO 5 mg DAILY STEPHY Administration Bumetanide 1 mg 06/02/19 20:35 06/03/19 08:08 Bumex IV 1 mg Q12H STEPHY Administration Enoxaparin Sodium 80 mg 06/03/19 20:00 06/04/19 08:36 Lovenox SUBCUT Not Given Q12H STEPHY Metoprolol Tartrat e 25 mg 06/04/19 02:00 06/04/19 10:22 Lopressor PO 25 mg Q8H STEPHY Administration Morphine Sulfate 2 mg 06/02/19 20:35 Morphine IVP Q4H PRN SEVERE PAIN Multivitamins Ther apeutic 1 tab 06/03/19 09:00 06/04/19 08:35 Multivitamin Tab PO 1 tab DAILY STEPHY Administration Nicotine 1 patch 06/03/19 21:00 06/04/19 08:36 Nicoderm 14 Mg P atch TRANSDERMA 1 patch DAILY STEPHY Administration Non-Formulary Medi cation 200 mg 06/02/19 20:35 Guaifenesin [Muc us Relief] PO Q4H PRN Congestion Ondansetron HCl 4 mg 06/02/19 20:35 Zofran IVP Q6H PRN vomiting, or N/V if npo Pantoprazole Sodiu m 40 mg 06/03/19 09:00 06/04/19 08:34 Protonix PO 40 mg DAILY STEPHY Administration Tamsulosin HCl 0.4 mg 06/03/19 09:00 06/04/19 08:35 Flomax PO 0.4 mg DAILY STEPHY Administration No Known Allergies Allergy (Verified 06/02/19 15:41) Vitals/I&O/Wt Last Vital Signs Temp 97.8 F 06/04/19 07:34 Pulse 126 H 06/04/19 09:35 Resp 17 06/04/19 09:35 BP 103/69 06/04/19 07:34 Pulse Ox 95 06/04/19 09:35 06/03/19 06/04/19 06/04/19 22:59 06:59 14:59 Intake Total 120 / 300 120 / 120 Balance 120 / 300 120 / 120 Weight last 48 hrs Weight 80.83 kg Weight 80.371 kg Weight 81.193 kg Physical Exam Const: COMMON NORMALS: no apparent distress and oriented x3 GENERAL APPEARANCE: cooperative and comfortable NUTRITIONAL APPEARANCE: overweight ORIENTATION/CONSCIOUSNESS: Yes awake HENMT: COMMON NORMALS: normocephalic, head/scalp atraumatic, hearing grossly normal bilaterally and moist oral mucous membranes HEAD & SCALP: normocephalic and atraumatic Eye: COMMON NORMALS: PERRL, EOMs intact bilaterally and conjunctivae normal CONJUNCTIVA: Yes conjunctivae normal PUPIL: Yes PERRL Neck/C-Spine: COMMON NORMALS: full ROM GENERAL: Yes normal visual inspection and Yes trachea midline Resp: COMMON NORMALS: normal respiratory effort, no retractions and no use of accessory muscles EFFORT & INSPECTION: Yes able to speak in complete sentences, Yes symmetric chest movement and No tachypneic AUSCULTATION: crackles and diminished lung sounds bilateral OTHER: -on 3 L NC, 97% Cardio: COMMON NORMALS: regular rate, S1 normal heart sound, S2 normal heart sound and no murmurs RATE: regular rate and tachycardic (intermittently) RHYTHM: abnormal rhythm irregularly irregular HEART SOUNDS: S1 normal and S2 normal GI: COMMON NORMALS: normal to inspection, nondistended, normoactive bowel sounds, soft to palpation and non-tender INSPECTION: Yes central obesity PALPATION: Yes soft Extremity: COMMON NORMALS: normal to inspection, full ROM and no clubbing, cyanosis or edema; negative for no pedal edema NARRATIVE EXTREMITY EXAM: -scattered varicosities on bilateral legs Neuro: COMMON NORMALS: oriented x3, moves all extremities, no focal motor deficits and no sensory deficits noted Psych: COMMON NORMALS: mental status grossly normal, thought process normal, cooperative, affect normal and speech normal SPEECH: Yes normal speech THOUGHT PROCESS: normal thought process Skin: COMMON NORMALS: no rashes or lesions noted, no jaundice, no petechiae and no mottling GENERAL SKIN EXAM: no rashes or lesions noted Data : 06/04/19 03:35 06/04/19 03:35 Micro: Microbiology 06/02/19 16:25 Blood Culture - Preliminary Blood NEGATIVE TO DATE 06/02/19 16:20 Blood Culture - Preliminary Blood NEGATIVE TO DATE A&P Assessment and plan (1) Acute exacerbation of CHF (congestive heart failure): -Clinically appears to have acute CHF exacerbation as evidenced by increased shortness of breath, lower extremity edema, significant BNP elevation (>21,000) and evidence of fluid overload on imaging -Received 80 mg dose of IV Lasix in ER; was on IV diuresis with Bumex due to noted renal impairment; hold this for now given hypotension, clinically appears dehydrated -closely monitor renal function, lytes -daily weights, monitor Is & Os, fluid restriction (1.5 L/day) -no baseline Echo on record, EF=25%, noted wall motion abnormalities, severe MR, moderate TR, severe pulmonary HTN (56) -telemetry monitoring -continue to monitor vital signs -continue to monitor respiratory status, supplemental oxygen as needed -Cardiology consult by Dr. Hernandez appreciated; will plan on outpatient coronary angiogram Status: Acute Qualifiers: Heart failure type: unspecified Qualified Code(s): I50.9 - Heart failure, unspecified Code(s): I50.9 - Heart failure, unspecified (2) Atrial fibrillation with RVR: -has known hx of atrial fibrillation, on Atenolol and full dose ASA -telemetry monitoring -given 15 mg dose of IV Cardizem with rate control in ED -A.fib on ECG -hold atenolol and started on metoprolol, titrate as needed for optimal HR control. Loaded with a dose of digoxin earlier today with noted improvement in rate control -Echo as noted above -[id number] score-3, needs long-term anticoagulation Status: Acute Code(s): I48.91 - Unspecified atrial fibrillation (3) COPD (chronic obstructive pulmonary disease): -has known hx of COPD, not oxygen dependent at baseline -SOB likely due to acute CHF exacerbation with element of acute COPD exacerbation -Neb treatments, supplemental oxygen as needed -with increased oxygen requirement, wheezing and SOB on exam, will start on empiric abx and inhaled steroids; would hold off on systemic steroids unless increased respiratory distress as patient has improved air entry today and decreased wheezing on exam Status: Acute Qualifiers: COPD type: unspecified COPD Qualified Code(s): J44.9 - Chronic obstructive pulmonary disease, unspecified Code(s): J44.9 - Chronic obstructive pulmonary disease, unspecified Additional A&P Information -Chronic smoker; 1 PPD x > 40 yrs -former EtOH abuse; quit 6-7 yrs ago -Chronic low back pain; on opiates -GERD; on PPI -hx of prostate cancer treated with radiation therapy; has LUTs (dribbling, incomplete emptying, urgency); on Flomax -Acute macrocytic anemia; noted slight drop (12.1->10.7), continue to monitor H/H; will continue full dose ASA for now -regular diet as tolerated; he refused cardiac diet -GI ppx with PPI -DVT ppx not needed as on therapeutic lovenox -Dispo: home -Code status: FULL code Attestations Medical Necessity Statement*: Patient requires hospitalization for continued management of acute CHF and COPD exacerbations, NSTEMI. Time Spent in Patient Care: 16 - 35 minutes (>than 50% of time spent in counselling and/or direct pt care on unit). 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
--- NOTE | 2019-06-04 11:02 | PC.CHAP ---
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 [] Patient/Family/Request visit [] Outpatient visit [] Follow-up visit [] Physician referral [] Code/Alert [x] Routine visit [] Staff referral [] Actively dying [] Patient sleeping [] Family support [] [] Out of room [] Palliative care [] [] Receiving care in room [] Pre-surgical visit [] Trauma [] Long length of stay [] ICU visit [] Other: Relational/Emotional Strength [x] Patient feels connected with others/family/visitors/staff [] Distress [] Loneliness/isolation [] Abandonment Spirituality of Patient [] Person of Lidia [] Attends [employer]ist of their Lidia [] Believes in Prayer [] Reads Bible or Jainism materials [x] There are Spiritual issues to be addressed Orthopedic Tech Interventions [x] Prayer [x] Active listening [x] Non-anxious presence [x] Spiritual/emotional support [] Crisis/trauma care [x] Spiritual counseling [] Bereavement support [] Provided bereavement packet [] Provided Bible/devotional materials [] Provided toy/stuffed animal, coloring book to patient or family member [] Provided Communion [] Anointing/[place] [] Salvation [] Completed spiritual assessment [] Other: Impact on Illness or Injury [] Angry [] Fearful [] Anxious [] Often cries [] Exhaustion [] Unable to work [] Unable to attend sikhism [] Unable to walk/stand [] Unable to read [] Unable to drive [] Unable to eat/drink [] Unable to sleep [] Unable to be with family [] Patient intubated [x] Other: Summary Patient professed saving lidia in [employer] [place] (but willfully disobedient) Counseling and prayer provided. Time spent with patient 15 minutes
[2019-06-04] MEDS: digoxin 250 mcg/ml INJ 2 mL IVP ×2 (11:24→18:40)
--- NOTE | 2019-06-04 11:35 | P.PN_ITS ---
Subjective Subjective: Interval history: Patient complains of feeling anxious. His urine output has not been properly documented. He is unable to void in urinal. On telemetry his heart rate has been running 100-1 40s overnight. Vitals/I&O/Wt Last Vital Signs Temp 97.8 F 06/04/19 07:34 Pulse 126 H 06/04/19 09:35 Resp 17 06/04/19 09:35 BP 103/69 06/04/19 07:34 Pulse Ox 95 06/04/19 09:35 06/03/19 06/04/19 06/04/19 22:59 06:59 14:59 Intake Total 120 / 300 120 / 120 Balance 120 / 300 120 / 120 Weight last 48 hrs Weight 178 lb 3.2 oz Weight 177 lb 3 oz Weight 179 lb Physical Exam Const: COMMON NORMALS: no apparent distress, average body habitus, oriented x3, alert and well nourished GENERAL APPEARANCE: cooperative, comfortable, well kempt and well developed ORIENTATION/CONSCIOUSNESS: Yes oriented to person, Yes oriented to place and Yes oriented to time HENMT: COMMON NORMALS: normocephalic, head/scalp atraumatic, hearing grossly normal bilaterally, external ears normal, external nose normal and moist oral mucous membranes HEAD & SCALP: normocephalic and atraumatic FACE & SINUS: face symmetric NOSE: external nose normal EXTERNAL EAR: Yes external ears normal MOUTH: oral and palatal mucosa normal Eye: COMMON NORMALS: PERRL, EOMs intact bilaterally and conjunctivae normal CONJUNCTIVA: Yes conjunctivae normal SCLERA: sclerae normal PUPIL: Yes PERRL Neck/C-Spine: COMMON NORMALS: no lymphadenopathy, supple and no JVD; negative for no carotid bruits Resp: COMMON NORMALS: normal respiratory effort; negative for no use of accessory muscles AUSCULTATION: no crackles, rales (coarse), no rhonchi, wheezes and bronchial breath sounds (prolonged expiration) Cardio: COMMON NORMALS: no JVD and peripheral pulses 2+ throughout JUGULAR VENOUS DISTENTION: no JVD PALPATION: normal PMI and no thrill RATE: tachycardic RHYTHM: abnormal rhythm HEART SOUNDS: no click, no gallops and no murmurs BRUITS: no carotid bruits PERIPHERAL PULSES: pulses 2+ throughout GI: COMMON NORMALS: normal to inspection, nondistended, normoactive bowel sounds, soft to palpation and non-tender PALPATION: Yes soft Neuro: COMMON NORMALS: oriented x3 and no focal motor deficits SENSORIUM/ORIENTATION: Yes alert, Yes oriented to person, Yes oriented to place and Yes oriented to time Psych: COMMON NORMALS: thought process normal APPEARANCE: Yes well kempt THOUGHT PROCESS: normal thought process THOUGHT CONTENT: Yes normal thought content ATTENTION/CONCENTRATION: Yes attention grossly intact Data : 06/04/19 03:35 06/04/19 03:35 Micro: Microbiology 06/02/19 16:25 Blood Culture - Preliminary Blood NEGATIVE TO DATE 06/02/19 16:20 Blood Culture - Preliminary Blood NEGATIVE TO DATE A&P Assessment and plan (1) Acute exacerbation of CHF (congestive heart failure): Newly diagnosed CHF; No recent cardiac work up. Severely decreased LV function with RWMA. 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 -Clinically patient appears to be dry. I will continue to hold off Bumex today. I/O charting, fluid restriction to 1500 ml and daily weight. -Patient would benefit from further invasive testing however this is not urgent or emergent procedure at this point in time. Plan for procedure as an outpatient. -Creatinine has increased slightly today. I will hold off on diuresis today and follow-up on BMP tomorrow. -Plan to start on low-dose JIHAN inhibitor or ARB depending on his renal function and blood pressure. -BP soft, closely monitor. Status: Acute Qualifiers: Heart failure type: unspecified Qualified Code(s): I50.9 - Heart failure, unspecified Code(s): I50.9 - Heart failure, unspecified (2) Atrial fibrillation with RVR: [id number]= 2/9 , 1 for age and 1 for CHF. -Start on lovenox. increase metoprolol to 25 mg TID. Digoxin 250 mcg IV x1 -I will avoid using amiodarone. Transition him to Eliquis on discharge. Status: Acute Code(s): I48.91 - Unspecified atrial fibrillation (3) Severe mitral regurgitation: Status: Acute Code(s): I34.0 - Nonrheumatic mitral (valve) insufficiency (4) COPD (chronic obstructive pulmonary disease): Status: Acute Qualifiers: COPD type: unspecified COPD Qualified Code(s): J44.9 - Chronic obstructive pulmonary disease, unspecified Code(s): J44.9 - Chronic obstructive pulmonary disease, unspecified (5) Smoker: Status: Acute Code(s): F17.200 - Nicotine dependence, unspecified, uncomplicated Additional A&P Information PREETI-continue to closely monitor renal function. Anemia Attestations Medical Necessity Statement*: Patient needs hospital stay for management of atrial fibrillation with rapid ventricle response. 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
[2019-06-04] MEDS: doxycycline 100 mg Tablet PO (17:50)
[2019-06-04] MEDS: enoxaparin 80 mg/0.8 mL Syringe SUBCUT (19:22)
[2019-06-04] MEDS: budesonide 0.5 mg/2 mL Neb 0.25 MG INHALATION (20:53)
[2019-06-05] VITALS (10 sets, daily range): BP systolic 93–115; BP diastolic 50–82; PULSE 82–107; RESP 12–24; TEMP 36.6–36.8; O2SAT 93–97
[2019-06-05] MEDS: metoprolol tartrate 25 mg Tablet PO (00:59)
[2019-06-05] MEDS: HYDROcodone-acetaminophen 10-325 mg Tablet 1 TAB PO ×3 (00:59→21:48)
[2019-06-05 05:10] LABS: Basophils # 0.1 10^3/uL (0.0-0.1); Basophils % 0.6 %; Eosinophils # 0.1 10^3/uL (0.0-0.8); Eosinophils % 1.2 %; Hematocrit 32.3 % (42.0-52.0); Hemoglobin 10.7 g/dL (11.7-16.6); Lymphocytes # 1.9 10^3/uL (0.8-4.8); Lymphocytes % 22.4 %; Mean Corpuscular HGB Conc 33.1 g/dL (30.0-36.0); Mean Corpuscular Hemoglobin 32.9 pg (28.0-34.0); Mean Corpuscular Volume 99.4 fL (80-94); Mean Platelet Volume 9.2 fL (7.4-10.4); Monocytes # 0.6 10^3/uL (0.2-0.9); Neutrophils # 5.9 10^3/uL (1.8-7.7); Neutrophils % 68.6 %; Nucleated Red Blood Cells % 0 %; Platelet Count 373 10^3/cmm (130-400); Red Blood Count 3.25 10^6/uL (4.1-5.3); Red Cell Distribution Width 13.1 % (12.1-15.1); White Blood Count 8.6 10^3/uL (4.0-10.0)
[2019-06-05 05:34] LABS: Blood Urea Nitrogen 21 mg/dL (8-23); Calcium 9.3 mg/dL (8.5-10.5); Carbon Dioxide 28 mmol/L (22-29); Chloride 98 mmol/L (98-107); Glucose 102 mg/dL (65-115); Osmolality Calculated 281 mOsm/kg (285-295); Sodium 137 mmol/L (136-145)
[2019-06-05] MEDS: nicotine 14 mg Patch 1 PATCH TRANSDERMA (08:07)
[2019-06-05] MEDS: doxycycline 100 mg Tablet PO ×2 (08:09→16:54)
[2019-06-05] MEDS: aspirin 325 mg Tablet PO (08:09)
[2019-06-05] MEDS: enoxaparin 80 mg/0.8 mL Syringe SUBCUT ×2 (08:09→21:48)
[2019-06-05] MEDS: pantoprazole DR 40 mg Tablet PO (08:10)
[2019-06-05] MEDS: tamsulosin 0.4 mg Capsule PO (08:10)
[2019-06-05] MEDS: bisacodyl 5 mg Tablet PO (08:10)
[2019-06-05] MEDS: multivitamin therapeutic Tablet 1 TAB PO (08:10)
--- NOTE | 2019-06-05 08:50 | PC.SOCIAL ---
IMM Page 2 of IMM given to patient with [facility] number provided. Initialed, dated, and timed and placed in chart. Copy provided to patient.
--- NOTE | 2019-06-05 09:24 | PM.PN ---
Subjective Subjective: Interval history: No documentation of overnight urine output. Vital signs seem to be more stable today. Morning labs noted with improvement in renal function, stable hemoglobin. Started on daily digoxin 125 mcg and dose of metoprolol increased to 37.5 mg twice daily. Telemetry review shows continued A. fib with RVR though not as fast as before. He is sitting up in bed, no apparent distress, on room air, complains of dry cough with no expectoration. Reports having voided overnight at least twice. Requesting nebulizer on discharge. Medications: Reviewed: Yes Medication Review Details: Active Medications Generic Name Dose Route Start Last Admin Trade Name Freq PRN Reason Stop Dose Admin Acetaminophen 650 mg 06/02/19 20:35 Tylenol PO Q6H PRN Mild/Mod Pain Or Temp >/= 101 Hydrocodone Bitart /Acetaminophen 1 tab 06/02/19 20:35 06/05/19 00:59 [place] 10-325 Mg PO 1 tab Q6H PRN Administration SEVERE PAIN Albuterol/Ipratrop ium 3 ml 06/02/19 20:35 06/04/19 20:53 Duoneb INHALATION 3 ml Q6H PRN Administration SHORTNESS OF LULY TH Aspirin 325 mg 06/03/19 09:00 06/05/19 08:09 Aspirin PO 325 mg DAILY STEPHY Administration Atorvastatin Calci um 10 mg 06/05/19 21:00 Lipitor PO BEDTIME STEPHY Bisacodyl 5 mg 06/03/19 09:00 06/05/19 08:10 Dulcolax PO 5 mg DAILY STEPHY Administration Budesonide 0.25 mg 06/04/19 20:00 06/04/19 20:53 Pulmicort INHALATION 0.25 mg BID.RESPIRATORY S CH Administration Digoxin 125 mcg 06/05/19 09:00 Lanoxin PO DAILY [facility] Doxycycline Monohy drate 100 mg 06/04/19 18:00 06/05/19 08:09 Vibramycin PO 100 mg BID STEPHY Administration Protocol Enoxaparin Sodium 80 mg 06/03/19 20:00 06/05/19 08:09 Lovenox SUBCUT 80 mg Q12H STEPHY Administration Metoprolol Succina te 37.5 mg 06/05/19 09:00 Toprol Xl PO BID STEPHY Morphine Sulfate 2 mg 06/02/19 20:35 Morphine IVP Q4H PRN SEVERE PAIN Multivitamins Ther apeutic 1 tab 06/03/19 09:00 06/05/19 08:10 Multivitamin Tab PO 1 tab DAILY STEPHY Administration Nicotine 1 patch 06/03/19 21:00 06/05/19 08:07 Nicoderm 14 Mg P atch TRANSDERMA 1 patch DAILY STEPHY Administration Non-Formulary Medi cation 200 mg 06/02/19 20:35 Guaifenesin [Muc us Relief] PO Q4H PRN Congestion Ondansetron HCl 4 mg 06/02/19 20:35 Zofran IVP Q6H PRN vomiting, or N/V if npo Pantoprazole Sodiu m 40 mg 06/03/19 09:00 06/05/19 08:10 Protonix PO 40 mg DAILY TSEPHY Administration Tamsulosin HCl 0.4 mg 06/03/19 09:00 06/05/19 08:10 Flomax PO 0.4 mg DAILY STEPHY Administration No Known Allergies Allergy (Verified 06/02/19 15:41) Vitals/I&O/Wt Last Vital Signs Temp 98 F 06/05/19 04:00 Pulse 82 06/05/19 04:00 Resp 22 H 06/05/19 04:00 BP 93/50 06/05/19 04:00 Pulse Ox 97 06/05/19 04:00 06/04/19 06/05/19 06/05/19 22:59 06:59 14:59 Intake Total 260 / 520 120 / 640 716 / 716 Output Total 500 / 500 Balance -240 / 20 120 / 140 716 / 716 Weight last 48 hrs Weight 78.018 kg Weight 80.83 kg Physical Exam Const: COMMON NORMALS: no apparent distress and oriented x3 GENERAL APPEARANCE: cooperative and comfortable NUTRITIONAL APPEARANCE: overweight ORIENTATION/CONSCIOUSNESS: Yes awake HENMT: COMMON NORMALS: normocephalic, head/scalp atraumatic, hearing grossly normal bilaterally and moist oral mucous membranes HEAD & SCALP: normocephalic and atraumatic Eye: COMMON NORMALS: PERRL, EOMs intact bilaterally and conjunctivae normal CONJUNCTIVA: Yes conjunctivae normal PUPIL: Yes PERRL Neck/C-Spine: COMMON NORMALS: full ROM GENERAL: Yes normal visual inspection and Yes trachea midline Resp: COMMON NORMALS: normal respiratory effort, no retractions and no use of accessory muscles EFFORT & INSPECTION: Yes able to speak in complete sentences, Yes symmetric chest movement and No tachypneic AUSCULTATION: crackles and diminished lung sounds bilateral OTHER: -on RA, 96% Cardio: COMMON NORMALS: S1 normal heart sound and S2 normal heart sound RATE: tachycardic (intermittently) RHYTHM: abnormal rhythm irregularly irregular HEART SOUNDS: S1 normal, S2 normal and murmur systolic GI: COMMON NORMALS: normal to inspection, nondistended, normoactive bowel sounds, soft to palpation and non-tender INSPECTION: Yes central obesity PALPATION: Yes soft Extremity: COMMON NORMALS: normal to inspection, full ROM and no clubbing, cyanosis or edema; negative for no pedal edema NARRATIVE EXTREMITY EXAM: -scattered varicosities on bilateral legs Neuro: COMMON NORMALS: oriented x3, moves all extremities, no focal motor deficits and no sensory deficits noted Psych: COMMON NORMALS: mental status grossly normal, thought process normal, cooperative, affect normal and speech normal SPEECH: Yes normal speech THOUGHT PROCESS: normal thought process Skin: COMMON NORMALS: no rashes or lesions noted, no jaundice, no petechiae and no mottling GENERAL SKIN EXAM: no rashes or lesions noted Data : 06/05/19 04:33 06/05/19 04:33 A&P Assessment and plan (1) Acute exacerbation of CHF (congestive heart failure): -Clinically appears to have acute CHF exacerbation as evidenced by increased shortness of breath, lower extremity edema, significant BNP elevation (>21,000) and evidence of fluid overload on imaging -Received 80 mg dose of IV Lasix in ER; was on IV diuresis with Bumex due to noted renal impairment; hold this for now given hypotension, clinically appears dehydrated -closely monitor renal function, lytes -daily weights, monitor Is & Os, fluid restriction (1.5 L/day) -no baseline Echo on record, EF=25%, noted wall motion abnormalities, severe MR, moderate TR, severe pulmonary HTN (56) -telemetry monitoring -continue to monitor vital signs -continue to monitor respiratory status, supplemental oxygen as needed -Cardiology consult by Dr. Hernandez appreciated; will plan on outpatient coronary angiogram Status: Acute Qualifiers: Heart failure type: unspecified Qualified Code(s): I50.9 - Heart failure, unspecified Code(s): I50.9 - Heart failure, unspecified (2) Atrial fibrillation with RVR: -has known hx of atrial fibrillation, on Atenolol and full dose ASA -telemetry monitoring -given 15 mg dose of IV Cardizem with rate control in ED -A.fib on ECG -hold atenolol, on metoprolol, titrate as needed for optimal HR control. Loaded with a dose of digoxin yesterday with noted improvement in rate control and now on daily dose -Echo as noted above -[id number] score-3, needs long-term anticoagulation Status: Acute Code(s): I48.91 - Unspecified atrial fibrillation (3) COPD (chronic obstructive pulmonary disease): -has known hx of COPD, not oxygen dependent at baseline, home oxygen evaluation if still requiring this prior to d/c -SOB likely due to acute CHF exacerbation with element of acute COPD exacerbation -Neb treatments, supplemental oxygen as needed -with increased oxygen requirement, wheezing and SOB on exam, started on empiric abx and inhaled steroids; would hold off on systemic steroids unless increased respiratory distress as patient has improved air entry today and decreased wheezing on exam and patient had jitteriness when he took oral prednisone previously so reluctant to take this again Status: Acute Qualifiers: COPD type: unspecified COPD Qualified Code(s): J44.9 - Chronic obstructive pulmonary disease, unspecified Code(s): J44.9 - Chronic obstructive pulmonary disease, unspecified Additional A&P Information -Chronic smoker; 1 PPD x > 40 yrs -former EtOH abuse; quit 6-7 yrs ago -Chronic low back pain; on opiates -GERD; on PPI -hx of prostate cancer treated with radiation therapy; has LUTs (dribbling, incomplete emptying, urgency); on Flomax -Acute macrocytic anemia; noted slight drop (12.1->10.7), continue to monitor H/H; will continue full dose ASA for now -regular diet as tolerated; he refused cardiac diet -GI ppx with PPI -DVT ppx not needed as on therapeutic lovenox -Dispo: home -Code status: FULL code Attestations Medical Necessity Statement*: Patient requires hospitalization for continued management of A. fib with RVR, acute CHF exacerbation requiring further optimization of medication. Time Spent in Patient Care: 16 - 35 minutes (>than 50% of time spent in counselling and/or direct pt care on unit). 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
[2019-06-05 09:38] LABS: Digoxin 0.9 ng/mL (0.6-1.2)
[2019-06-05] MEDS: budesonide 0.5 mg/2 mL Neb 0.25 MG INHALATION ×2 (09:44→20:30)
--- NOTE | 2019-06-05 11:17 | PM.PN ---
Subjective Subjective: Interval history: Patient is complaining about food but walked down the halls yesterday with a walker and felt fine. He did urinate last night but probably not documented. His HR has improved but still HR running 90's-110's. Vitals/I&O/Wt Last Vital Signs Temp 98 F 06/05/19 04:00 Pulse 84 06/05/19 09:59 Resp 16 06/05/19 09:59 BP 93/50 06/05/19 04:00 Pulse Ox 96 06/05/19 09:59 06/04/19 06/05/19 06/05/19 22:59 06:59 14:59 Intake Total 260 / 520 120 / 640 716 / 716 Output Total 500 / 500 Balance -240 / 20 120 / 140 716 / 716 Weight last 48 hrs Weight 172 lb Physical Exam Const: COMMON NORMALS: no apparent distress, average body habitus, oriented x3, alert and well nourished GENERAL APPEARANCE: cooperative, comfortable, well kempt and well developed ORIENTATION/CONSCIOUSNESS: Yes oriented to person, Yes oriented to place and Yes oriented to time HENMT: COMMON NORMALS: normocephalic, head/scalp atraumatic, external ears normal and external nose normal HEAD & SCALP: normocephalic and atraumatic FACE & SINUS: face symmetric NOSE: external nose normal EXTERNAL EAR: Yes external ears normal MOUTH: oral and palatal mucosa normal Eye: COMMON NORMALS: PERRL, EOMs intact bilaterally and conjunctivae normal CONJUNCTIVA: Yes conjunctivae normal SCLERA: sclerae normal PUPIL: Yes PERRL Neck/C-Spine: COMMON NORMALS: no lymphadenopathy, supple and no JVD; negative for no carotid bruits Resp: COMMON NORMALS: normal respiratory effort; negative for no use of accessory muscles AUSCULTATION: no crackles, no rhonchi, wheezes and bronchial breath sounds (prolonged expiration) Cardio: COMMON NORMALS: no JVD and peripheral pulses 2+ throughout JUGULAR VENOUS DISTENTION: no JVD PALPATION: normal PMI and no thrill RATE: tachycardic RHYTHM: abnormal rhythm HEART SOUNDS: no click, no gallops and no murmurs BRUITS: no carotid bruits PERIPHERAL PULSES: pulses 2+ throughout GI: COMMON NORMALS: soft to palpation PALPATION: Yes soft Neuro: COMMON NORMALS: oriented x3 SENSORIUM/ORIENTATION: Yes alert, Yes oriented to person, Yes oriented to place and Yes oriented to time Psych: COMMON NORMALS: thought process normal APPEARANCE: Yes well kempt THOUGHT PROCESS: normal thought process THOUGHT CONTENT: Yes normal thought content ATTENTION/CONCENTRATION: Yes attention grossly intact Data : 06/05/19 04:33 06/05/19 04:33 A&P Assessment and plan (1) Acute exacerbation of CHF (congestive heart failure): Newly diagnosed CHF; No recent cardiac work up. Severely decreased LV function with RWMA. 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 -Clinically patient appears to be dry. I will continue to hold off Bumex today. I/O charting, fluid restriction to 1500 ml and daily weight. -Patient would benefit from further invasive testing however this is not urgent or emergent procedure at this point in time. Plan for procedure as an outpatient. -Creatinine has improved. -Plan to start on low-dose JIHAN inhibitor or ARB depending on his renal function and blood pressure at a later date. -BP soft, closely monitor. Patient today Complaining about the food and the fact that he knows what to do best. I attempted to converse with him regarding salt and fluid restriction half however he kept rambling about he likes zaman increased gravy and he has had that for 72 years. Based on the conversation today I do not believe he would be a good candidate for LifeVest. -From cardiac standpoint I think he is stable to be discharged home and follow-up as an outpatient if he is agreeable for the same. -Continue aspirin 81 mg, statin, metoprolol succinate and Lasix 20 mg/potassium 10 p.o. as needed for shortness of breath and leg swelling on discharge. -[facility]-up [facility] Status: Acute Qualifiers: Heart failure type: unspecified Qualified Code(s): I50.9 - Heart failure, unspecified Code(s): I50.9 - Heart failure, unspecified (2) Atrial fibrillation with RVR: [id number]= 2/9 , 1 for age and 1 for CHF. -Start on lovenox. -I will avoid using amiodarone. Transition him to Eliquis 5 mg twice a day on discharge (please provide 30-day free coupon). -continue Digoxin 125 mcg daily on discharge. Status: Acute Code(s): I48.91 - Unspecified atrial fibrillation (3) Severe mitral regurgitation: probably sceondary; Status: Acute Code(s): I34.0 - Nonrheumatic mitral (valve) insufficiency (4) COPD (chronic obstructive pulmonary disease): Status: Acute Qualifiers: COPD type: unspecified COPD Qualified Code(s): J44.9 - Chronic obstructive pulmonary disease, unspecified Code(s): J44.9 - Chronic obstructive pulmonary disease, unspecified (5) Smoker: Status: Acute Code(s): F17.200 - Nicotine dependence, unspecified, uncomplicated Additional A&P Information PREETI-continue to closely monitor renal function. 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
[2019-06-05] MEDS: metoprolol succinate ER (24 HR) 25 mg Tablet 37.5 MG PO ×2 (11:24→16:54)
[2019-06-05] MEDS: digoxin 125 mcg Tablet PO (11:26)
[2019-06-05] MEDS: guaiFENesin 600 mg Tablet PO (16:54)
[2019-06-05] MEDS: atorvastatin 40 mg Tablet 10 MG PO (21:48)
[2019-06-06] VITALS (9 sets, daily range): BP systolic 100–110; BP diastolic 59–68; PULSE 87–123; RESP 15–22; TEMP 35.8–36.8; O2SAT 88–97
[2019-06-06] MEDS: HYDROcodone-acetaminophen 10-325 mg Tablet 1 TAB PO (04:35)
[2019-06-06] MEDS: budesonide 0.5 mg/2 mL Neb 0.25 MG INHALATION (07:44)
[2019-06-06] MEDS: ipratropium-albuterol 3 mL Neb INHALATION (07:44)
[2019-06-06] MEDS: enoxaparin 80 mg/0.8 mL Syringe SUBCUT (08:04)
[2019-06-06] MEDS: aspirin 325 mg Tablet PO (08:05)
[2019-06-06] MEDS: bisacodyl 5 mg Tablet PO (08:05)
[2019-06-06] MEDS: pantoprazole DR 40 mg Tablet PO (08:06)
[2019-06-06] MEDS: metoprolol succinate ER (24 HR) 25 mg Tablet 37.5 MG PO (08:06)
[2019-06-06] MEDS: doxycycline 100 mg Tablet PO (08:07)
[2019-06-06] MEDS: tamsulosin 0.4 mg Capsule PO (08:07)
[2019-06-06] MEDS: multivitamin therapeutic Tablet 1 TAB PO (08:07)
[2019-06-06] MEDS: guaiFENesin 600 mg Tablet PO (08:07)
[2019-06-06] MEDS: digoxin 125 mcg Tablet PO (08:08)
[2019-06-06] MEDS: nicotine 14 mg Patch 1 PATCH TRANSDERMA (08:08)
--- NOTE | 2019-06-06 09:01 | P.DS_ITS ---
Discharge Providers Date of Admission: 06/02/19 18:45 Date of Discharge: June 06, 2019 Attending Provider at Admission: Lizbeth Bradley MD Attending Provider at Discharge: Lizbeth Bradley MD Diagnoses at Discharge Discharge Diagnosis (1) Acute exacerbation of CHF (congestive heart failure): Status: Acute Problem details: -Clinically appears to have acute CHF exacerbation as evidenced by increased s hortness of breath, lower extremity edema, significant BNP elevation (>21,000) and evidence of fluid overload on imaging -Received 80 mg dose of IV Lasix in ER; was on IV diuresis with Bumex due to no lindsey renal impairment; hold this for now given hypotension, clinically appears dehydrated -closely monitor renal function, lytes -daily weights, monitor Is & Os, fluid restriction (1.5 L/day) -no baseline Echo on record, EF=25%, noted wall motion abnormalities, severe MR, moderate TR, severe pulmonary HTN (56) -telemetry monitoring -continue to monitor vital signs -continue to monitor respiratory status, supplemental oxygen as needed -Cardiology consult by Dr. Hernandez appreciated; will plan on outpatient coronary angiogram Qualifiers: Heart failure type: unspecified Qualified Code(s): I50.9 - Heart failure, unspecified (2) Atrial fibrillation with RVR: Status: Acute Problem details: -has known hx of atrial fibrillation, on Atenolol and full dose ASA -telemetry monitoring -given 15 mg dose of IV Cardizem with rate control in ED -A.fib on ECG -hold atenolol, on metoprolol, titrate as needed for optimal HR control. Loaded with a dose of digoxin yesterday with noted improvement in rate control and now on daily dose -Echo as noted above -[id number]-LHEw score-3, needs long-term anticoagulation (3) Severe mitral regurgitation: Status: Chronic (4) COPD (chronic obstructive pulmonary disease): Status: Chronic Problem details: -has known hx of COPD, not oxygen dependent at baseline, home oxygen evaluation if still requiring this prior to d/c -SOB likely due to acute CHF exacerbation with element of acute COPD exacerbation -Neb treatments, supplemental oxygen as needed -with increased oxygen requirement, wheezing and SOB on exam, started on empiric abx and inhaled steroids; would hold off on systemic steroids unless increased respiratory distress as patient has improved air entry today and decreased wheezing on exam and patient had jitteriness when he took oral prednisone previously so reluctant to take this again Qualifiers: COPD type: unspecified COPD Qualified Code(s): J44.9 - Chronic obstructive pulmonary disease, unspecified (5) Smoker: Status: Chronic Problem details: -Chronic smoker; 1 PPD x > 40 yrs Other Information Additional DC diagnoses/information: -former EtOH abuse; quit 6-7 yrs ago -Chronic low back pain; on opiates -GERD; on PPI -hx of prostate cancer treated with radiation therapy; has LUTs (dribbling, incomplete emptying, urgency); on Flomax -Acute macrocytic anemia; noted slight drop (12.1->10.7), continue to monitor H/H Reason for Visit Reason for Visit: Reason For Visit: SOB x 1-2 weeks Hospital Course 2 Hospital Course: Patient was admitted to the medical surgical floor and started on diuresis secondary to clinical evidence of acute CHF exacerbation. He was also found to have A. fib with RVR requiring rate control with Cardizem and metoprolol. There was no baseline echo on record so this was ordered and he was found to have an EF of 25% with noted wall motion abnormalities, severe MR, severe pulmonary hypertension. Findings were discussed with cardiology and official consult requested. Due to possibility of coronary angiogram for further evaluation patient was moved to the cardiac stepdown unit. He was started on therapeutic anticoagulation with Lovenox and medications otherwise optimized. He did require supplemental oxygen which she is not dependent on at baseline so had a home oxygen evaluation done prior to discharge. Blood pressure has been in the low normal range likely secondary to low EF as mentioned previously. He has been quite vocal throughout his admission about his dislike for the cardiac diet and its restrictions, has very minimal insight into his overall health. There was initial discussion about outpatient coronary angiogram for further evaluation of noted systolic CHF and potentially considering a LifeVest in the interim. However due to patient's noncompliance and poor insight cardiology has decided against this at this time. He also was noted to have evidence of acute COPD exacerbation and was treated with inhaled steroids and empiric doxycycline which he is to continue on discharge. He did not receive systemic steroids per his preference as they have made him very jittery in the past. He recently established care with a new provider who we will need to follow-up with within 1 week. He is to follow-up with cardiology in approximately 4 weeks. He is to continue anticoagulation with Eliquis. Discharge Summary: -Patient to follow-up with primary care physician within 1 week -Patient to follow-up with cardiology Dr. Hernandez in 4 weeks -Patient to follow up with Dr. Wright as soon as next available appointment for further evaluation of BPH with lower urinary tract symptoms. Physical Exam Const: COMMON NORMALS: no apparent distress and oriented x3 GENERAL APPEARANCE: cooperative and comfortable NUTRITIONAL APPEARANCE: overweight ORIENTATION/CONSCIOUSNESS: Yes awake HENMT: COMMON NORMALS: normocephalic, head/scalp atraumatic, hearing grossly normal bilaterally and moist oral mucous membranes HEAD & SCALP: normocephalic and atraumatic TEETH & GINGIVA: Yes poor dentition Eye: COMMON NORMALS: PERRL, EOMs intact bilaterally and conjunctivae normal CONJUNCTIVA: Yes conjunctivae normal PUPIL: Yes PERRL Neck/C-Spine: COMMON NORMALS: full ROM GENERAL: Yes normal visual inspection and Yes trachea midline Resp: COMMON NORMALS: normal respiratory effort, no retractions and no use of accessory muscles EFFORT & INSPECTION: Yes able to speak in complete sentences, Yes symmetric chest movement and No tachypneic AUSCULTATION: crackles and diminished lung sounds bilateral OTHER: -on RA, 96% Cardio: COMMON NORMALS: S1 normal heart sound and S2 normal heart sound RATE: tachycardic (intermittently) RHYTHM: abnormal rhythm irregularly irregular HEART SOUNDS: S1 normal, S2 normal and murmur systolic GI: COMMON NORMALS: normal to inspection, nondistended, normoactive bowel sounds, soft to palpation and non-tender INSPECTION: Yes central obesity PALPATION: Yes soft Extremity: COMMON NORMALS: normal to inspection, full ROM and no clubbing, cyanosis or edema; negative for no pedal edema NARRATIVE EXTREMITY EXAM: -scattered varicosities on bilateral legs Neuro: COMMON NORMALS: oriented x3, moves all extremities, no focal motor deficits and no sensory deficits noted Psych: COMMON NORMALS: mental status grossly normal, thought process normal, cooperative, affect normal and speech normal SPEECH: Yes normal speech THOUGHT PROCESS: normal thought process Skin: COMMON NORMALS: no rashes or lesions noted, no jaundice, no petechiae an d no mottling GENERAL SKIN EXAM: no rashes or lesions noted Discharge Data Data Completed and Pending: Completed Studies During Hospitalization Category Date Time Status XR chest 1V yash ble [id number] Urgent Exams 06/02/19 16:07 Completed NM pul vent and p erfus* [id number] Routi ne Nuc Med 06/03/19 14:34 Completed CV echo complete* [id number] Routine Ultrasound 06/03/19 20:35 Completed Pending at discharge Category Date Time Status Blood Culture Sta t Lab 06/02/19 16:25 Results Labs from last 24 hours 06/05/19 04:33 Digoxin 0.9 Vitals: Last Vital Signs Temp 96.5 F L 06/06/19 08:01 Pulse 102 H 06/06/19 08:08 Resp 18 06/06/19 08:01 BP 107/68 06/06/19 08:01 Pulse Ox 97 06/06/19 08:01 Discharge Plan Discharge Patient Disposition: Home, Self-Care Condition: Stable Prescriptions: New atorvastatin 40 mg Tablet 10 mg PO BEDTIME 30 Days Qty: 30 RF: 0 doxycycline monohydrate 100 mg Tablet 100 mg PO BID 5 Days Qty: 10 RF: 0 tamsulosin 0.4 mg Capsule 0.4 mg PO DAILY 30 Days Qty: 30 RF: 0 budesonide 0.5 mg/2 mL Suspension For Nebulization 0.25 mg inhalation BID.RESPIRATORY Qty: 30 RF: 0 digoxin 125 mcg (0.125 mg) Tablet 125 mcg PO DAILY 30 Days Qty: 30 RF: 0 metoprolol succinate 25 mg Tablet Extended Release 24 Hr 37.5 mg PO BID 30 Days Qty: 90 RF: 0 Adult Low Dose Aspirin 81 mg tablet,delayed release (DR/EC) 81 mg PO DAILY 30 Days Qty: 30 RF: 0 potassium chloride 10 mEq tablet extended release 10 meq PO DAILY 30 Days Qty: 30 RF: 0 Lasix 20 mg tablet 20 mg PO DAILY 30 Days Qty: 30 RF: 0 Eliquis 5 mg tablet 5 mg PO BID 30 Days Qty: 60 RF: 0 Continued hydrocodone-acetaminophen 10-325 mg tablet 1 tab PO Q6H PRN (Reason: Pain) RF: 0 ascorbate calcium (vitamin C) 500 mg tablet 1 gm PO DAILY RF: 0 ProAir RespiClick 90 mcg/actuation aerosol powdr breath activated 2 inh INHALATION Q6H PRN (Reason: Shortness Of Breath) RF: 0 Spiriva with HandiHaler 18 mcg capsule, w/inhalation device 1 cap INHALATION DAILY RF: 0 omeprazole 20 mg capsule,delayed release(DR/EC) 20 mg PO DAILY RF: 0 Multiple Vitamins Tablet 1 tab PO DAILY RF: 0 Mucus Relief 200 mg Tablet 200 mg PO Q4H PRN (Reason: Congestion) RF: 0 vitamin A 10,000 unit Capsule 10,000 unit PO DAILY RF: 0 bisacodyl 5 mg Tablet 5 mg PO DAILY RF: 0 Discontinued aspirin 325 mg tablet 325 mg PO DAILY RF: 0 atenolol 50 mg tablet 50 mg PO DAILY RF: 0 Discharge Orders: Discharge Order (Routine); Ordered 06/06/19 Ordered By: Lizbeth Bradley Other Ambulatory Orders: DME: Nebulizer with Neb Kit (Order) Location: None Selected Ordered By: Lizbeth Bradley DME: Oxygen (Order) Location: None Selected Ordered By: Lizbeth Bradley [place] [facility] [place] [facility] [place] [Outside] Grazyna Hooker MD [Hospitalist] - 06/15/19 1:30 pm (Please, keep your appointment with Grazyna Hooker on June 14 at 1:30p.m. If, you need to reschedule or any questions. Please, call ) Magdi Wright MD [Physician] - 1 month (Patient has prior hx of prostate cancer s/p radiation now with LUTs. ) Emilia Hernandez MD [Physician] - 1 month ([facility] will contact you to schedule an follow-up appointment with Dr. Hernandez in 1 month. If, you haven't heard from them by Saturday afternoon. Please, call ) Discharge Diet: Cardiac Discharge Activity: Resume usual activity Patient Instructions: Metoprolol (By mouth), Digoxin (By mouth), Furosemide (By mouth), Doxycycline (By mouth), Potassium Chloride (By mouth), Aspirin (By mouth), Atorvastatin (By mouth), Tamsulosin (By mouth), Budesonide (By breathing), Apixaban (By mouth), Heart Failure (DC), Atrial Fibrillation (DC), Mitral Regurgitation (DC), How to Stop Smoking (DC), Chronic Obstructive Pulmonary Disease (DC), CHF Stoplight, COPD Stoplight Activity Restrictions/Additional Instructions: -Please seek medical attention immediately if symptoms worsen Discharge Attestations Time Spent in Discharge Care*: greater than 30 min Specific Discharge Activities: Specific discharge activities: educating patient, discussing with correctional casework specialist/social workers/dc planners, documenting/other paperwork and evaluating patient/reviewing data Status at Discharge: Cognitive status at discharge: cognitively intact , Behavioral status at discharge: cooperative , Functional status at discharge: independent ambulation Overall status at discharge: patient is back to baseline Quality Metrics Clinical Quality Measures During this hospital stay, did patient experience: None Coding Level of Care Code Acute 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
--- NOTE | 2019-06-06 11:06 | PC.NURSE ---
Discharge information given per the physican's orders. Patient verbalized understanding of information and did not have any further questions. Glynn diaz in packet with discharge information.
--- NOTE | 2019-06-11 12:02 | PC.SOCIAL ---
[facility] called to inquire about patients medications they had filled the medications but patient indicates he ended up getting them at [facility] since [facility] was not open. Call placed to Patient and he indicates he called back to the hospital and nurse called into [facility] since [facility] was closed. He indicates he got a bag of pills 9 or 10. He was indeed prescribed 9 new pills. He indicates his nurse has been out also. Updated [facility] it appears pt did get the medications from [facility].
--- NOTE | 2019-06-11 12:05 | PC.SOCIAL ---
In addition to previous note. Talked to Priya at [facility] to update regarding dc meds being filled at [facility].
== END 2019-06-06 12:46 | disposition home or self-care (01) | DRG 293 ==
LOC: ER 18:39 → MEDSURG 19:23 → CSU 06-03 17:38
PROVIDERS: Internal Medicine Cardiovascular Disease; Admitting Provider Family Medicine; Emergency Provider Family Medicine; Family Provider Nurse Practitioner Family; Visit Provider Family Medicine
DX: I50.9 Heart failure, unspecified (principal); I48.91 Unspecified atrial fibrillation; J44.9 Chronic obstructive pulmonary disease, unspecified; I34.0 Nonrheumatic mitral (valve) insufficiency; F17.210 Nicotine dependence, cigarettes, uncomplicated; K21.9 Gastro-esophageal reflux disease without esophagitis; M54.5 Low back pain; G89.29 Other chronic pain; F45.42 Pain disorder with related psychological factors; D64.9 Anemia, unspecified; F10.10 Alcohol abuse, uncomplicated; Z79.82 Long term (current) use of aspirin; Z79.52 Long term (current) use of systemic steroids; Z79.84 Long term (current) use of oral hypoglycemic drugs
CPT/HCPCS: 12345; 36415; 71045; 78014; 80048; 80053; 80061; 80162; 82607; 82746; 83036; 83735; 83880; 84443; 85025; 85378; 87040; 87804; 93005; 93306; 94640; 96372; 96375; 99283; A9540; A9567; J1160; J1650; J1940; J3490; J7626

== ENCOUNTER 2019-07-23 14:49 | Outpatient (CLI) | payer MEDICARE, MEDICAID, SELFPAY ==
[2019-07-23 15:25] LABS: Anion Gap 16.8 (5-19); Blood Urea Nitrogen 12 mg/dL (8-23); Calcium 9.5 mg/dL (8.5-10.5); Carbon Dioxide 28 mmol/L (22-29); Chloride 98 mmol/L (98-107); Glucose 129 mg/dL (65-115); Magnesium 2.3 mg/dL (1.7-2.3); NT Pro B Type Natriuretic Pept 3568 pg/mL (0-125); Osmolality Calculated 286 mOsm/kg (285-295); Potassium 3.8 mmol/L (3.5-5.1); Sodium 139 mmol/L (136-145)
== END 2019-07-23 14:50 | disposition home or self-care (01) ==
LOC: LAB 14:52
PROVIDERS: Family Provider Nurse Practitioner Family; PCP Family Medicine; Visit Provider Internal Medicine Cardiovascular Disease
DX: I50.9 Heart failure, unspecified (principal); I48.91 Unspecified atrial fibrillation
CPT/HCPCS: 80048; 83735; 83880

== ENCOUNTER 2019-07-24 13:01 | Outpatient (CLI) | payer MEDICARE, MEDICAID, SELFPAY ==
--- NOTE | 2019-07-24 13:12 | CT_ITS ---
WS: [id number] CT LUNG CANCER SCREENING DLP: 51.46 mGy.cm DIvol: 1.51 mGy CLINICAL INFORMATION SCREENING VISIT: Baseline COMPARISON: None available. FINDINGS Diagnostic quality: Satisfactory. Mild breathing motion artifact. Comments: None. Lung Nodules: None. Lungs: Benign granuloma RIGHT lower lobe, image 275 of series 3. Heart: Mild enlargement the heart chambers. There is moderate to severe calcification along the nativ e coronary arteries. Other findings: Normal size pulmonary artery. Mild atherosclerosis aorta. No adenopathy. No hiatal hernia. CT/CT lung screening G0297 IMPRESSION: LUNG-RADS: 1S-Negative with Significant Findings FOLLOW UP: 12 Month: Continue annual screening with LDCT Significant coronary atherosclerosis. Evaluation by cardiology recommended.
== END 2019-07-24 13:02 | disposition home or self-care (01) ==
LOC: RAD 13:03
PROVIDERS: PCP Family Medicine; Visit Provider Family Medicine
DX: Z12.2 Encounter for screening for malignant neoplasm of respiratory organs (principal); F17.210 Nicotine dependence, cigarettes, uncomplicated; I25.10 Atherosclerotic heart disease of native coronary artery without angina pectoris
CPT/HCPCS: G0297

== ENCOUNTER 2019-09-25 08:35 | Outpatient (CLI) | payer MEDICARE, MEDICAID, SELFPAY ==
[2019-09-25 09:10] VITALS: BMI 27.6
--- NOTE | 2019-09-25 09:11 | ECG_ITS ---
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 Interpretive Statements NAME OF STUDY: LEXISCAN SESTAMIBI STRESS TEST INDICATION: A FIB, CHF PROCEDURE: At the baseline, the blood pressure was 158/77 mmHg, oxygen saturation 96% with a heart rate of 65 bpm. The electrocardiogram showed atrial fibrillation. Possible old anteroseptal infarct. Nonspecific ST-T wave changes. The Lexiscan was infused over a period of 20 seconds. A total of 0.4 milligrams of Lexiscan was infused. The stress phase was continued for a total of 5 minutes. Heart rate at the end of the stress phase was 79 bpm, oxygen saturation 96% with a blood pressure 131/67 mmHg. The EKG at the peak infusion revealed no significant ST-T wave changes. Sestamibi was injected 20 seconds after the Lexiscan infusion. Blood pressure at the end of the recovery phase was 145/70 mmHg, oxygen saturation 96% with a heart rate of 74 beats per minute. CONCLUSION: 1. No significant EKG changes with the LexiScan infusion. 2. No LexiScan induced chest pain or cardiac arrhythmia. 3. Normal blood pressure and heart rate response. 4. Sestamibi/sestamibi perfusion scan pending; see separate report. Electronically Signed On 09-25-2019 13:31:06 CDT by Emilia Hernandez M.D. [email or web address]
--- NOTE | 2019-09-25 09:11 | NMCV_ITS ---
NM bessy perf SPECT r/s* [id number] Dennis Mcintosh Age: 74 Gender: M : 1945 Exam Date: 09/25/2019 10:12 Ordering Phys: Emilia Hernandez MD ([email or web address]) Technologist: SERENITY Fam Exam Location: [facility] Indications: ATRIAL FIBRILLATION, CHF STRESS TEST [facility] IMAGE PROTOCOL Rest/Stress 1 Lexiscan Day Radiopharmaceutical Dose (mCi) Administration Site Administered by Rest: Tc-99m 10.8 IV SERENITY Lackey Sestamibi Stress:Tc-99m 32.6 IV SERENITY Lackey Sestamibi Rest: 25-Sep-2019 60 Discovery 630 Stress: 25-Sep-2019 30 Discovery 630 0.4mg Lexiscan. Supine position only as patient was unable to lay prone. SPECT RESULTS Technical Quality: Good Raw Data Analysis: Subdiaphragmatic activity Image Corrections: No attenuation or motion correction applied Summed Stress Score: 19 Summed Rest Score: 21 Summed Difference Score: 1 PERFUSION FINDINGS Large size perfusion abnormality of severe severity of mid to apical anterior, mid to apical anterolateral and apical hazel on rest and stress images. FUNCTIONAL RESULTS (calculated via Gated SPECT) Stress Image LV EF (%): 47 Stress EDV (mL):130 TID: 1.11 Stress ESV (mL):69 FUNCTIONAL FINDINGS: The left ventricle is normal in size. Transient Ischemia Dilatation of 1.1. There is mildly reduced left ventricular systolic function. The left ventricular ejection fraction is mildly reduced with a value of 47%. There is hypokinesis of mid to apical anterior and apical hazel. IMPRESSIONS 1. Large sized predominantly fixed perfusion abnormality of severe severity of mid to apical anterior, mid to apical anterolateral and apical hazel. 2. This may be suggestive of old myocardial infarction/scarring in left anterior descending artery territory or attenuation artifact. 3. The left ventricular ejection fraction is mildly reduced with a value of 47%. 4. There is hypokinesis of mid to apical anterior and apical hazel. 5. No significant coronary ischemia based on the study. Emilia Hernandez MD (Electronically Signed) Final Date: 28 September 2019 17:13 S
--- NOTE | 2019-09-25 10:55 | SUR.PREOP ---
Patient reports no pain or discomfort prior to the start of the procedure.
[2019-09-25] MEDS: regadenoson 0.4 Mg/5 ml Syringe IVP (10:56)
[2019-09-25 11:05] VITALS: BP 130/80; PULSE 72
== END 2019-09-25 08:36 | disposition home or self-care (01) ==
LOC: CDL 08:37
PROVIDERS: PCP Family Medicine; Visit Provider Internal Medicine Cardiovascular Disease
DX: I48.91 Unspecified atrial fibrillation (principal); I50.9 Heart failure, unspecified
CPT/HCPCS: 78452; 93017; A9500; J2785

== ENCOUNTER → 2020-02-03 15:18 | Outpatient (BNVA) | payer BC, MEDICAID, SELFPAY | PROVIDERS: PCP Family Medicine; Visit Provider Surgery | DX: Z20.828 Contact with and (suspected) exposure to other viral communicable diseases (principal); I50.9 Heart failure, unspecified | CPT/HCPCS: 87635 ==

== ENCOUNTER 2020-02-09 07:05 | Day surgery (SDC) | payer MEDICARE, BC, MEDICAID, SELFPAY ==
[2020-02-03 13:48] VITALS: BMI 29.4
[2020-02-09] MEDS: sodium chloride 0.9% 1,000 ML 30 ML IV (07:27)
[2020-02-09 07:30] VITALS: BP 144/68; PULSE 92; RESP 18; TEMP 36.1; O2SAT 91
--- NOTE | 2020-02-09 07:59 | ANES.PREANE2 ---
Pre-Anesthetic Assessment Pre-Anesthetic Assessment: Height/Weight: Height 1.65 m Weight 80.286 kg Temp Pulse Resp BP Pulse Ox 97.0 F L 92 18 144/68 91 02/09/20 07:30 02/09/20 07:30 02/09/20 07:30 02/09/20 07:30 02/09/20 07:30 Proposed Procedure: Operation Date: 02/09/20 08:00 Proposed Procedures p EGD [id number] R10.13 R19.5(Not Applicable) - Calin Doss MD s Colonoscopy(Not Applicable) - Calin Doss MD Was Beta Anna taken within 24 hours: Yes Last intake: Intake Last Liquid Date 02/08/20 Last Liquid Time 23:00 Last Solid Date 02/07/20 Social: Social History: Tobacco (1 ) Exam: Pre-Anes Outpt Exam: alert and oriented x 3 Airway: Submandibular: WNL Cervical ROM: WNL MP: 2 Dentition: False Pulmonary: Pulmonary: COPD, Cough and CALDERON Comments: o2 at night. 2L. CV/HEM: CV/HEM: Afib Comments: stress test negative this year. : : None reported Hepatic: Hepatic: None reported GI: GI: GERD Metabolic: Metabolic: None reported Musc/skel: Musc/skel: Lower Back Pain and OA/DJD Neuropsych: Neuropsych: None reported Anesthetic Plan: ASA status: 3 Anesthesia: MAC Meds/Allergies Current Medications: Current Medications Generic Name Dose Route Start Last Admin Trade Name Freq PRN Reason Stop Dose Admin Sodium Chloride 1,000 mls @ 30 ml s/hr 02/09/20 07:15 02/09/20 07:27 Sodium Chloride 0.9% IV 02/10/20 07:14 30 mls/hr .Q24H STEPHY Administration PFSH Anesthesia PFSH: Medical History A-fib Anxiety Cataracts, bilateral Chronic back pain Depression GERD (gastroesophageal reflux disease) Hiatal hernia History of prostate cancer treated with radiation Hypertension Surgical History H/O esophagogastroduodenoscopy Family History Father CAD (coronary artery disease) Mother Diabetes Social History Smoking and tobacco status: current every day smoker cigarettes Packs smoked per day: 1 Years cigarettes smoked: 40 Alcohol intake: former Former alcohol use details: quit 6-7 yrs ago Lives independently: Yes History of recent travel: No Data Anesthesia Cardiac Studies: No Data to Display
--- NOTE | 2020-02-09 08:06 | W.PM.OPSUD ---
Surgery/Procedure H&P Update DATE OF PROCEDURE: February 09, 2020 DATE H&P PERFORMED: 01/25/20 H&P UPDATE INFORMATION: I have reviewed H&P completed within last 30 days, I have examined patient prior to procedure and No changes to prior documentation PREOP DIAGNOSIS: gi bleed PLANNED PROCEDURE: Operation Date: 02/09/20 08:00 Proposed Procedures p EGD [id number] R10.13 R19.5(Not Applicable) - Calin Doss MD s Colonoscopy(Not Applicable) - Calin Doss MD
[2020-02-09 09:09] VITALS: BP 120/68; PULSE 85; RESP 16; TEMP 36.1; O2SAT 100
[2020-02-09 09:19] VITALS: BP 121/75; PULSE 68; RESP 18; O2SAT 99
--- NOTE | 2020-02-09 09:28 | ANE.PACU2 ---
Inpatient post-anesthesia follow up: Vital signs: Temperature 97 F Pulse Rate 68 Respiratory Rate 18 Blood Pressure 121/75 Pulse Oximetry 99 Oxygen Delivery Me thod Room Air Oxygen Flow Rate 6 Fraction of Inspir ed Oxygen Hydration adequate: Yes Nausea and vomiting: No Pain level: 1 Mental status: Baseline
== END 2020-02-09 09:40 | disposition home or self-care (01) ==
PROVIDERS: PCP Family Medicine; Visit Provider Surgery
PROC: 0DJ08ZZ Inspection of Upper Intestinal Tract, Via Natural or Artificial Opening Endoscopic (ICD-10-PCS; CPT 43235; principal; 2020-02-09 08:00)
PROC: 0DJD8ZZ Inspection of Lower Intestinal Tract, Via Natural or Artificial Opening Endoscopic (ICD-10-PCS; CPT 45378; 2020-02-09 08:00)
DX: R10.13 Epigastric pain (principal); K25.9 Gastric ulcer, unspecified as acute or chronic, without hemorrhage or perforation; K57.30 Diverticulosis of large intestine without perforation or abscess without bleeding; D12.5 Benign neoplasm of sigmoid colon; D12.3 Benign neoplasm of transverse colon; D12.8 Benign neoplasm of rectum; F17.210 Nicotine dependence, cigarettes, uncomplicated; J44.9 Chronic obstructive pulmonary disease, unspecified; Z99.81 Dependence on supplemental oxygen; I48.91 Unspecified atrial fibrillation; M19.90 Unspecified osteoarthritis, unspecified site; F41.9 Anxiety disorder, unspecified; F32.9 Major depressive disorder, single episode, unspecified; Z85.46 Personal history of malignant neoplasm of prostate; I10 Essential (primary) hypertension; Z92.3 Personal history of irradiation
CPT/HCPCS: 12345; 43239; 45380; 45385; 88305; J2704; J7030

== ENCOUNTER 2020-04-01 14:27 | Outpatient (CLI) | payer MEDICARE, MEDICAID, SELFPAY ==
--- NOTE | 2020-04-01 14:36 | XR_ITS ---
WS: [id number] KUB, AP view, 04/01/2020 Clinical Data: LOWER ABD PAIN Comparison: None. Findings: No abnormal intraabdominal masses or calcifications are seen. There is no dilatated small bowel or ev idence of obstruction. There is a large amount of fecal material throughout the colon. There is calcification in the hazel o f the common iliac arteries. Severe degenerative arthritic change of both hips is seen. There is oste oarthritic change in the lumbar vertebral bodies. XR/XR KUB [id number] Impression: Negative KUB.
== END 2020-04-01 14:28 | disposition home or self-care (01) ==
PROVIDERS: PCP Family Medicine; Visit Provider Nurse Practitioner Family
DX: R10.30 Lower abdominal pain, unspecified (principal)
CPT/HCPCS: 74018

== ENCOUNTER 2020-04-18 11:06 | Outpatient (CLI) | payer MEDICARE, MEDICAID, SELFPAY ==
--- NOTE | 2020-04-18 11:11 | XR_ITS ---
WS: [id number] LUMBAR SPINE: 3 VIEWS TECHNIQUE: AP, lateral and L5-S1 spot. HISTORY: SPONDYLOSIS, LUMBOSACRAL REGION COMPARISON: 06/05/2018 Mild increase in the lumbar lordosis. No lumbar spine fracture. 50% compression fracture of T12. No r etropulsion. Moderate facet joint arthritis at L4-5 and L5-S1. No bone destruction. Moderate atherosclerosis within the abdominal aorta. SI joints are symmetric bilaterally. No soft tissue abnormalities. XR/XR lumbar spine 2-3V* [id number] IMPRESSION: 1. Moderate lumbar spondylosis with no progression since 06/05/2018. 2. 50% T12 anterior compression fracture. Stable.
== END 2020-04-18 11:07 | disposition home or self-care (01) ==
LOC: RADWPI 11:10
PROVIDERS: PCP Family Medicine; Visit Provider Family Medicine
DX: M47.817 Spondylosis without myelopathy or radiculopathy, lumbosacral region (principal); S22.080A Wedge compression fracture of T11-T12 vertebra, initial encounter for closed fracture; X58.XXXA Exposure to other specified factors, initial encounter
CPT/HCPCS: 72100

== ENCOUNTER 2021-04-15 12:23 | Emergency (ER) | payer MEDICARE, MEDICAID, SELFPAY ==
[2021-04-15 13:09] VITALS: BP 120/70; PULSE 91; RESP 16; TEMP 36.9; O2SAT 98; BMI 30.4
--- NOTE | 2021-04-15 14:16 | XRR_ITS ---
PROCEDURE INFORMATION: Exam: XR Chest Exam date and time: 04/15/2021 2:16 PM Age: 75 years old Clinical indication: Dyspnea; Patient HX: Cough; Additional info: Dyspnea/cough TECHNIQUE: Imaging protocol: XR of the chest. Views: 1 view. COMPARISON: CR XR chest 1V portable [id number] 06/02/2019 4:12 PM FINDINGS: Lungs: Hyperinflated lungs. No consolidation. Pleural spaces: Unremarkable. No pleural effusion. No pneumothorax. Heart/Mediastinum: Cardiomegaly, similar in size to prior exam. Bones/joints: Unremarkable. XR/XR chest 1V portable [id number] IMPRESSION: Stable exam, no acute findings.
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
--- NOTE | 2021-04-17 15:06 | DCPLANNER ---
meat department manager had message to schedule a follow up appointment for patient with Wound Care. meat department manager called the Wound Care clinic, spoke with Cat, gave clinic patients information. A follow up appointment was scheduled for patient, when patient case manager called patient to give him the appointment information, patient stated that he wanted the appointment cancelled. Patient stated that he was going to follow up with his primary care physician. meat department manager called Wound Care, spoke with Cat, and cancelled the appointment.
== END 2021-04-15 16:18 | disposition home or self-care (01) ==
PROVIDERS: Emergency Provider Nurse Practitioner Family; PCP Family Medicine
DX: T25.221A Burn of second degree of right foot, initial encounter (principal); X08.8XXA Exposure to other specified smoke, fire and flames, initial encounter; Z79.82 Long term (current) use of aspirin; Z79.01 Long term (current) use of anticoagulants; I10 Essential (primary) hypertension; Z85.46 Personal history of malignant neoplasm of prostate; F17.210 Nicotine dependence, cigarettes, uncomplicated
CPT/HCPCS: 71045; 99282

== ENCOUNTER 2021-04-25 11:42 | Outpatient (CLI) | payer MEDICARE, MEDICAID, SELFPAY ==
--- NOTE | 2021-04-25 11:50 | CT_ITS ---
WS: [id number] LDCT LUNG CANCER SCREENING HISTORY: NICOTINE DEPENDENCE, CIGARETTES TECHNIQUE: Axial imaging performed from the apices to 1 cm below the costophrenic angles. Coronal and sagittal reformats are submitted with axial MIP series. All CT scans at [facility] use at least one of these dose optimization techniques: automated exposure control; mA and/or kV adjustment per patient size (includes targeted exams where dose is matched to clinical indication); or iterativ e reconstruction. DLP: 81.10 mGy.cm DIvol: Mean CTDIvol: 1.60 (mGy),Mean CTDIvol: 1.60 (mGy) COMPARISON: 07/24/2019 Diagnostic quality: Breathing motion artifact. Lung Nodules: No pulmonary nodule or mass identified. No endobronchial lesions. Lungs: Moderate pulmonary hyperinflation with emphysema. Heart: Mildly enlarged heart. There are extensive calcifications in the [place] coronary arteries. No pericardial effusion. Other findings: Atherosclerosis aorta. Small mediastinal and hilar lymph nodes. Normal size pulmonary artery. Moderate compression fracture T12, stable. CT/CT lung screening 78097 IMPRESSION: LUNG-RADS: 1-Negative FOLLOW UP: 12 Month: Continue annual screening with LDCT OTHER FINDINGS (S MODIFIER): None.
== END 2021-04-25 11:43 | disposition home or self-care (01) ==
LOC: RAD 11:48
PROVIDERS: PCP Family Medicine; Visit Provider Family Medicine
DX: Z12.2 Encounter for screening for malignant neoplasm of respiratory organs (principal); F17.210 Nicotine dependence, cigarettes, uncomplicated; I70.0 Atherosclerosis of aorta; S22.089A Unspecified fracture of T11-T12 vertebra, initial encounter for closed fracture; X58.XXXA Exposure to other specified factors, initial encounter
CPT/HCPCS: 71271

== ENCOUNTER 2021-05-12 09:18 | Outpatient (CLI) | payer MEDICARE, MEDICAID, SELFPAY | END 2021-05-12 09:19 | disposition home or self-care (01) | LOC: WOUND 09:21 | PROVIDERS: PCP Family Medicine; Visit Provider Surgery | DX: I96 Gangrene, not elsewhere classified (principal); T25.221A Burn of second degree of right foot, initial encounter; X58.XXXA Exposure to other specified factors, initial encounter; F17.200 Nicotine dependence, unspecified, uncomplicated | CPT/HCPCS: 11042; 99213 ==

== ENCOUNTER 2021-05-26 14:56 | Outpatient (CLI) | payer MEDICARE, MEDICAID, SELFPAY | END 2021-05-26 14:57 | disposition home or self-care (01) | LOC: WOUND 14:57 | PROVIDERS: PCP Family Medicine; Visit Provider Surgery | DX: T25.321D Burn of third degree of right foot, subsequent encounter (principal); X58.XXXD Exposure to other specified factors, subsequent encounter; I96 Gangrene, not elsewhere classified | CPT/HCPCS: 11042 ==

== ENCOUNTER → 2021-06-09 10:51 | Outpatient (BNVA) | payer MEDICARE, MEDICAID, SELFPAY | PROVIDERS: PCP Family Medicine; Visit Provider Surgery | DX: I96 Gangrene, not elsewhere classified (principal); L97.412 Non-pressure chronic ulcer of right heel and midfoot with fat layer exposed; F17.210 Nicotine dependence, cigarettes, uncomplicated | CPT/HCPCS: 11042; A6219 ==

== ENCOUNTER 2021-06-14 07:07 | Day surgery (SDC) | payer MEDICARE, MEDICAID, SELFPAY ==
[2021-06-12 12:14] VITALS: BMI 25.0
[2021-06-14 07:41] VITALS: BP 119/81; PULSE 80; RESP 18; TEMP 36.6; O2SAT 97
[2021-06-14 07:45] VITALS: PULSE 74; RESP 18; O2SAT 96
[2021-06-14] MEDS: sodium chloride 0.9% 1,000 ML 30 ML IV (07:45)
[2021-06-14 07:56] VITALS: PULSE 81
--- NOTE | 2021-06-14 08:29 | ANES.PREANE2 ---
Pre-Anesthetic Assessment Height/Weight: Height 1.68 m Weight 70.307 kg Temp Pulse Resp BP Pulse Ox 97.8 F 81 18 119/81 96 06/14/21 07:41 06/14/21 07:56 06/14/21 07:45 06/14/21 07:41 06/14/21 07:45 Preop Diagnosis: diagnostic Operation Date: 06/14/21 08:45 Proposed Procedures p Colonoscopy 53573/z86.010(Not Applicable) - Calin Doss MD Familial anesthetic complications: none Was Beta Anna taken within 24 hours: Yes Was Clonidine taken within 24 hours: N/A Last intake: Intake Last Liquid Date 06/14/21 Last Liquid Time 05:00 Last Solid Date 06/12/21 Last Solid Time 13:00 Social Tobacco and No alcohol 2 pack(s) per day MJ use Exam alert, oriented x 3, clear to auscultation bilaterally and regular rate & rhythm Airway Dentition: false History/ROS No significant history except as noted Pulmonary Asthma and Chronic Obstructive Pulmonary Disease CV/HEM Congestive Heart Failure, Hypertension and Murmur Chronic Renal Failure Hepatic None reported GI Gastroesophageal Reflux Disease Metabolic None reported Musc/skel Lower Back Pain and Osteoarthritis/DJD Neuropsych None reported Anesthetic Plan ASA status: 3 Anesthesia: Anesthesia Evaluation and MAC Risk of > 500 ml blood loss (7ml/kg in children): No Medications/Allergies Home Medications Medication Instructions Recorded Confirmed Last Taken Type albuterol sulfate 90 mcg/actuation 2 inh INHALATION Q6H PRN 05/04/19 06/14/21 06/13/21 History breath activated powder inhaler (ProAir RespiClick) omeprazole 20 mg capsule,delayed 20 mg PO DAILY 05/04/19 06/14/21 06/13/21 History release ascorbate calcium (vitamin C) 500 1 gm PO DAILY tab 05/07/19 06/14/21 06/13/21 History mg tablet apixaban 5 mg tablet (Eliquis) 5 mg PO BID 08/28/19 06/14/21 06/13/21 History aspirin 81 mg tablet,delayed 81 mg PO DAILY 08/28/19 06/14/21 06/13/21 History release (Aspir-) furosemide 20 mg tablet 20 mg PO DAILY 08/28/19 06/14/21 06/13/21 History metoprolol succinate 25 mg 37.5 mg PO BID tab 08/28/19 06/14/21 06/14/21 History tablet,extended release 24 hr potassium chloride 10 mEq 10 meq PO DAILY 08/28/19 06/14/21 06/13/21 History tablet,extended release atorvastatin 20 mg tablet 20 mg PO DAILY 06/12/21 06/14/21 06/13/21 History cholecalciferol (vitamin D3) 125 125 mcg PO DAILY 06/12/21 06/14/21 06/13/21 History mcg (5,000 unit) tablet (Vitamin D3) Allergies Allergy/AdvReac Type Severity Reaction Status Date / Time No Known Allergies Allergy Verified 06/14/21 07:33 Current Medications Generic Name Dose Route Start Last Admin Trade Name Freq PRN Reason Stop Dose Admin Sodium Chloride 1,000 mls @ 30 mls/hr 06/14/21 07:30 06/14/21 07:45 Sodium Chloride 0.9% IV 06/15/21 07:29 30 mls/hr .Q24H STEPHY Administration PFSH Anesthesia Medical History (Updated 05/09/21 @ 12:18 by Calin Doss MD) A-fib Anxiety Cataracts, bilateral Chronic back pain Colon polyps Depression GERD (gastroesophageal reflux disease) Hiatal hernia History of prostate cancer treated with radiation Hypertension Right inguinal hernia Surgical History H/O esophagogastroduodenoscopy (02/09/20) Status post colonoscopy with polypectomy (02/09/20) Family History Father CAD (coronary artery disease) Mother Diabetes Social History Smoking and tobacco status: current every day smoker cigarettes Packs smoked per day: 1.5 Years cigarettes smoked: 40 Alcohol intake: former Former alcohol use details: quit 6-7 yrs ago Lives independently: Yes History of recent travel: No Data Anesthesia Cardiac Studies: Echocardiogram Ultrasound 06/03/19 Sestamibi Stress Test (Cardiology) 09/25/19
--- NOTE | 2021-06-14 08:33 | W.PM.OPSFHP ---
Same Day Surgery H&P Indication for Procedure/HPI DATE OF PROCEDURE: June 14, 2021 CHIEF COMPLAINT/INDICATIONFOR SURGICAL PROCEDURE: colonoscopy PREOP DIAGNOSIS: diagnostic PLANNED PROCEDURE: Operation Date: 06/14/21 08:45 Proposed Procedures p Colonoscopy 12756/z86.010(Not Applicable) - Calin Doss MD Medications/Allergies* Home Medications Medication Instructions Recorded Confirmed Type albuterol sulfate 90 mcg/actuation 2 inh INHALATION Q6H PRN 05/04/19 06/14/21 History breath activated powder inhaler (ProAir RespiClick) omeprazole 20 mg capsule,delayed 20 mg PO DAILY 05/04/19 06/14/21 History release ascorbate calcium (vitamin C) 500 1 gm PO DAILY tab 05/07/19 06/14/21 History mg tablet apixaban 5 mg tablet (Eliquis) 5 mg PO BID 08/28/19 06/14/21 History aspirin 81 mg tablet,delayed 81 mg PO DAILY 08/28/19 06/14/21 History release (Aspir-) furosemide 20 mg tablet 20 mg PO DAILY 08/28/19 06/14/21 History metoprolol succinate 25 mg 37.5 mg PO BID tab 08/28/19 06/14/21 History tablet,extended release 24 hr potassium chloride 10 mEq 10 meq PO DAILY 08/28/19 06/14/21 History tablet,extended release atorvastatin 20 mg tablet 20 mg PO DAILY 06/12/21 06/14/21 History cholecalciferol (vitamin D3) 125 125 mcg PO DAILY 06/12/21 06/14/21 History mcg (5,000 unit) tablet (Vitamin D3) Allergies/Adverse Reactions Allergy/AdvReac Type Severity Reaction Status Date / Time No Known Allergies Allergy Verified 06/14/21 07:33 Current Medications: Generic Name Dose Route Start Last Admin Trade Name Freq PRN Reason Stop Dose Admin Sodium Chloride 1,000 mls @ 30 mls/hr 06/14/21 07:30 06/14/21 07:45 Sodium Chloride 0.9% IV 06/15/21 07:29 30 mls/hr .Q24H STEPHY Administration Pertinent History/Comorbid Conditions* Medical History (Updated 05/09/21 @ 12:18 by Calin Doss MD) A-fib Anxiety Cataracts, bilateral Chronic back pain Colon polyps Depression GERD (gastroesophageal reflux disease) Hiatal hernia History of prostate cancer treated with radiation Hypertension Right inguinal hernia Surgical History (Updated 02/09/20 @ 09:10 by Calin Doss MD) H/O esophagogastroduodenoscopy (02/09/20) Status post colonoscopy with polypectomy (02/09/20) Family History (Updated 05/07/19 @ 11:17 by Lety Harris LPN) Diabetes Mother CAD (coronary artery disease) Father Social History Smoking and tobacco status: current every day smoker cigarettes Packs smoked per day: 1.5 Years cigarettes smoked: 40 Alcohol intake: former Former alcohol use details: quit 6-7 yrs ago Lives independently: Yes History of recent travel: No Pertinent Exam Findings alert, oriented x 3 and regular rate & rhythm Recommendations Surgery/Procedure today Coding Level of Care Code Acute Customer Services Coordinator for Vida Barr
[2021-06-14 09:07] VITALS: BP 97/59; PULSE 83; RESP 17; TEMP 36.1; O2SAT 95
--- NOTE | 2021-06-14 09:11 | ANE.PACU2 ---
Inpatient post-anesthesia follow up: Airway intact: Yes Vital signs: Temperature 97.8 F Pulse Rate 81 Respiratory Rate 18 Blood Pressure 119/81 Pulse Oximetry 96 Oxygen Delivery Me thod Room Air Oxygen Flow Rate Fraction of Inspir ed Oxygen Hydration adequate: Yes Nausea and vomiting: No Pain level: 1 Mental status: Baseline
== END 2021-06-14 09:40 | disposition home or self-care (01) ==
PROVIDERS: PCP Family Medicine; Visit Provider Surgery
PROC: 0DJD8ZZ Inspection of Lower Intestinal Tract, Via Natural or Artificial Opening Endoscopic (ICD-10-PCS; CPT 45378; principal; 2021-06-14 08:45)
DX: D12.2 Benign neoplasm of ascending colon (principal); D12.4 Benign neoplasm of descending colon; K57.30 Diverticulosis of large intestine without perforation or abscess without bleeding; K64.8 Other hemorrhoids; Z86.010 Personal history of colon polyps; Z79.82 Long term (current) use of aspirin; I48.91 Unspecified atrial fibrillation; F41.9 Anxiety disorder, unspecified; K21.9 Gastro-esophageal reflux disease without esophagitis; I10 Essential (primary) hypertension; Z82.49 Family history of ischemic heart disease and other diseases of the circulatory system; Z83.3 Family history of diabetes mellitus; F17.210 Nicotine dependence, cigarettes, uncomplicated; J44.9 Chronic obstructive pulmonary disease, unspecified; I11.0 Hypertensive heart disease with heart failure; I50.9 Heart failure, unspecified; Z85.46 Personal history of malignant neoplasm of prostate; Z92.3 Personal history of irradiation
CPT/HCPCS: 45380; 88305; 94640; J2704; J7030; J7611

== ENCOUNTER → 2021-06-26 11:41 | Outpatient (BNVA) | payer MEDICARE, MEDICAID, SELFPAY | PROVIDERS: PCP Family Medicine; Visit Provider Internal Medicine Cardiovascular Disease | DX: I11.0 Hypertensive heart disease with heart failure (principal); I50.9 Heart failure, unspecified; I48.20 Chronic atrial fibrillation, unspecified; I34.0 Nonrheumatic mitral (valve) insufficiency; F17.210 Nicotine dependence, cigarettes, uncomplicated; J44.9 Chronic obstructive pulmonary disease, unspecified; I73.9 Peripheral vascular disease, unspecified; I25.10 Atherosclerotic heart disease of native coronary artery without angina pectoris; Z79.01 Long term (current) use of anticoagulants; Z79.82 Long term (current) use of aspirin | CPT/HCPCS: 99214 ==

== ENCOUNTER → 2021-06-27 11:10 | Outpatient (BNVA) | payer MEDICARE, MEDICAID, SELFPAY | PROVIDERS: PCP Family Medicine; Visit Provider Surgery | DX: K63.5 Polyp of colon (principal) | CPT/HCPCS: 99212 ==

== ENCOUNTER 2021-08-30 11:33 | Outpatient (CLI) | payer MEDICARE, MEDICAID, SELFPAY ==
--- NOTE | 2021-08-30 12:15 | USCV_ITS ---
Dennis Mcintosh Age: 76 Gender: M : 1945 Exam Date: 08/30/2021 12:23 Ordering Phys: Emilia Hernandez MD ([email or web address]) Technologist: WIHTNEY [place] [facility] [place]ication: CHRONIC HEART FAILURE, MITRIAL VALVE REGURG BP: 130 / 76 HR: 86 Rhythm: Atrial fibrillation Technical Quality: Adequate MEASUREMENTS (Male / Female) Normal Values 2D ECHO LV Diastolic Diameter PLAX 4.9 cm 4.2 - 5.9 / 3.9 - 5.3 cm LV Systolic Diameter PLAX 4.4 cm IVS Diastolic Thickness 1.2 cm 0.6 - 1.0 / 0.6 - 0.9 cm IVS Systolic Thickness 1.4 cm LVPW Diastolic Thickness 1.3 cm 0.6 - 1.0 / 0.6 - 0.9 cm LVPW Systolic Thickness 1.5 cm LVOT Diameter 2.0 cm LV Ejection Fraction 2D Teich 22.2 % LV Ejection Fraction MOD 2C 27.2 % LV Ejection Fraction 2C AL 26.5 % LA Diameter 3.7 cm LA Width 3.5 cm LA Height 5.6 cm RA Width 3.9 cm RA Height 4.9 cm Aorta at Sinotubular Diameter 3.0 cm IVC Diameter 1.6 cm M-MODE Aortic Annulus Diameter 2.9 cm LA Ao Ratio MM 1.2 MV E Point Septal Separation 0.7 cm DOPPLER AV Peak Velocity 109.0 cm/s LVOT Peak Velocity 76.0 cm/s AV Area Cont Eq vti 2.5 cm squared AV Area Cont Eq pk 2.2 cm squared MV Peak Velocity 161.0 cm/s MV Area PHT 3.6 cm squared MV E' Velocity 67.5 cm/s Mitral E to MV E' Ratio 13.9 Mitral E to LV E' Lateral Ratio 12.3 Mitral E to LV E' Septal Ratio 16.3 TR Peak Velocity 271.1 cm/s TR Peak Gradient 29.4 mmHg TR Mean Velocity 215.6 cm/s TR Mean Gradient 19.2 mmHg TR Velocity Time Integral 70.1 cm TV Peak E Velocity 45.0 cm/s Right Atrial Pressure 3.0 mmHg Pulmonary Artery Systolic Pressu 32.4 mmHg PV Peak Velocity 88.0 cm/s RV Acceleration Time 0.1 s RV Ejection Time 0.3 s RV AcT/ET 0.3 FINDINGS Left Ventricle Normal left ventricular size and wall thickness. Moderately decreased left ventricular systolic function. Left ventricular ejection fraction is estimated at 35 %. There is moderate global hypokinesis and severe hypokinesis of mid to apical anterior, mid to apical anteroseptal hazel. Rhythm precludes evaluation of diastolic function. Right Ventricle Normal right ventricular size and systolic function. RVSP could not be calculated due to incomplete tricuspid regurgitation velocity profile. Right Atrium Normal right atrial size. Left Atrium Mildly increased left atrial size. Mitral Valve Mildly thickened mitral valve. Mild to moderate mitral valve regurgitation. Aortic Valve Structurally normal trileaflet aortic valve. No aortic valve stenosis. No aortic valve regurgitation. Tricuspid Valve Structurally normal tricuspid valve. No tricuspid valve stenosis. Trace to mild tricuspid valve regurgitation. Pulmonic Valve Structurally normal pulmonic valve. No pulmonary valve stenosis. Trace pulmonary valve regurgitation. Pericardium No pericardial effusion. Aorta Normal size aortic root and proximal ascending aorta. IVC Normal IVC dimension with >50% respiratory change of the inferior vena cava. CONCLUSIONS 1. Normal left ventricular size and wall thickness. Moderately decreased left ventricular systolic function. Left ventricular ejection fraction is estimated at 35%. There is moderate global hypokinesis and severe hypokinesis of mid to apical anterior, mid to apical anteroseptal hazel. 2. Normal right ventricular size and systolic function. 3. When compared to previous echocardiogram dated 06/03/2019, left ventricle systolic function seems to have improved from 25% before. Emilia Hernandez MD (Electronically Signed) Final Date: 02 September 2021 11:13 S
--- NOTE | 2021-08-30 13:00 | USCV_ITS ---
Dennis Mcintosh Age: 76 Gender: M : 1945 Exam Date: 08/30/2021 12:03 Ordering Phys: Emilia Hernandez MD ([email or web address]) Technologist: WHITNEY [place] [facility] [place]ication: CLADICATION Risk Factors: Previous Vascular Surgery: RIGHT LEFT BP: 130.0 / BP: 131.0/ 0 0 Waveform Velocity (cm/s) Velocity (cm/s) Waveform Triphasic 71.1 Iliac Prox 74.3 Triphasic Triphasic 66.3 Iliac Mid 62.3 Triphasic Triphasic 74.0 Iliac Distal 78.9 Triphasic Triphasic 53.8 TOPPIECE CUTTER 94.1 Triphasic Triphasic 149.3 SFA Prox 277.6 Triphasic N/A SFA Mid 204.5 Monophasic Monophasic SFA Dist N/A 17.1 Monophasic 26.7 POP 45.3 Monophasic N/A LYE BOILER N/A Monophasic 25.6 DPA 23.9 Monophasic FINDINGS UNABLE TO OBTAINED BILAT AGA'S DUE TO LOW FLOW VOLUME Normal Doppler waveforms in the iliac and common femoral arteries bilaterally Heavy plaques in the superficial femoral arteries bilaterally. Monophasic low velocity waveforms in the popliteal and infrapopliteal vessels bilaterally Normal Doppler flow signals in the mid femoral and posterior tibial artery on the right side; distal femoral and posterior tibial artery on the left side CONCLUSIONS 1. 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 2. Possibly occluded posterior tibial arteries bilaterally 3. Sluggish flow in the popliteal and dorsalis pedis arteries bilaterally ABIs could not be obtained Dr Bernardino Saab MD [facility] (Electronically Signed) Final Date: 31 August 2021 21:37 S
== END 2021-08-30 11:34 | disposition home or self-care (01) ==
LOC: RAD 11:37
PROVIDERS: PCP Family Medicine; Visit Provider Internal Medicine Cardiovascular Disease
DX: I73.9 Peripheral vascular disease, unspecified (principal); M79.605 Pain in left leg; M79.604 Pain in right leg; I50.9 Heart failure, unspecified; I34.0 Nonrheumatic mitral (valve) insufficiency
CPT/HCPCS: 93306; 93925; C8929

== ENCOUNTER 2021-09-26 12:34 | Outpatient (CLI) | payer MEDICARE, MEDICAID, SELFPAY ==
--- NOTE | 2021-09-26 12:55 | XR_ITS ---
WS: [id number] XR wrist LT 2V [id number] REASON FOR EXAM: PAIN IN L WRIST FINDINGS: Spiral fracture of the distal diaphysis of the ulna with some overriding of the fracture fragments. T here is mild lateral angulation at the fracture site. The radius is intact. No other significant bony or joint abnormality is identified. XR/XR wrist LT 2V [id number] IMPRESSION: Left wrist fracture as above.
--- NOTE | 2021-09-26 12:55 | XR_ITS ---
WS: [id number] XR forearm LT 2V [id number] REASON FOR EXAM: PAIN IN LEFT WRIST FINDINGS: There is a is partial fracture of the distal diaphysis of the left ulna with mild overriding of the f racture fragments. No significant angulation. The remainder of the ulna is intact. The radius is intact. There is some deformity of the proximal radial head however this appears old, p ossibly from previous trauma. XR/XR forearm LT 2V [id number] IMPRESSION: Distal ulnar fracture as above.
== END 2021-09-26 12:35 | disposition home or self-care (01) ==
LOC: RAD 12:39
PROVIDERS: PCP Family Medicine; Visit Provider Family Medicine
DX: M25.532 Pain in left wrist (principal); S52.602D Unspecified fracture of lower end of left ulna, subsequent encounter for closed fracture with routine healing; X58.XXXD Exposure to other specified factors, subsequent encounter
CPT/HCPCS: 73090; 73100

== ENCOUNTER → 2021-10-02 10:22 | Outpatient (BNVA) | payer MEDICARE, MEDICAID, SELFPAY | PROVIDERS: PCP Family Medicine; Referring Provider Family Medicine; Visit Provider Specialist | DX: S52.252A Displaced comminuted fracture of shaft of ulna, left arm, initial encounter for closed fracture (principal); V59.9XXA Occupant (driver) (passenger) of pick-up truck or van injured in unspecified traffic accident, initial encounter | CPT/HCPCS: 25530; 73110; 99203 ==

== ENCOUNTER 2021-10-02 15:43 | Outpatient (CLI) | payer MEDICARE, MEDICAID, SELFPAY | END 2021-10-02 15:44 | disposition home or self-care (01) | LOC: SPT 15:44 | PROVIDERS: PCP Family Medicine; Visit Provider Specialist | DX: Z46.89 Encounter for fitting and adjustment of other specified devices (principal); S52.292D Other fracture of shaft of left ulna, subsequent encounter for closed fracture with routine healing; X58.XXXD Exposure to other specified factors, subsequent encounter | CPT/HCPCS: 97760; L3982 ==

== ENCOUNTER → 2021-10-23 10:30 | Outpatient (BNVA) | payer MEDICARE, MEDICAID, SELFPAY | PROVIDERS: PCP Family Medicine; Visit Provider Internal Medicine Cardiovascular Disease | DX: I25.10 Atherosclerotic heart disease of native coronary artery without angina pectoris (principal); I11.0 Hypertensive heart disease with heart failure; I50.9 Heart failure, unspecified; I48.91 Unspecified atrial fibrillation; Z79.01 Long term (current) use of anticoagulants; I34.0 Nonrheumatic mitral (valve) insufficiency; F17.210 Nicotine dependence, cigarettes, uncomplicated; J44.9 Chronic obstructive pulmonary disease, unspecified; I73.9 Peripheral vascular disease, unspecified | CPT/HCPCS: 99214 ==

== ENCOUNTER → 2021-11-16 09:24 | Outpatient (BNVA) | payer MEDICARE, MEDICAID, SELFPAY | PROVIDERS: PCP Family Medicine; Visit Provider Nurse Practitioner Family | DX: S52.202A Unspecified fracture of shaft of left ulna, initial encounter for closed fracture (principal); X58.XXXA Exposure to other specified factors, initial encounter | CPT/HCPCS: 73110; 99213; 99214 ==

== ENCOUNTER → 2021-12-19 09:35 | Outpatient (BNVA) | payer MEDICARE, MEDICAID, SELFPAY | PROVIDERS: PCP Family Medicine; Visit Provider Nurse Practitioner Family | DX: X58.XXXA Exposure to other specified factors, initial encounter (principal); S52.202A Unspecified fracture of shaft of left ulna, initial encounter for closed fracture | CPT/HCPCS: 73110; 99214 ==

== ENCOUNTER 2022-01-30 15:44 | Inpatient (IN) | payer MEDICARE, MEDICAID, SELFPAY ==
[2022-01-30] VITALS (37 sets, daily range): BP systolic 90–138; BP diastolic 56–92; PULSE 113–187; RESP 13–33; TEMP 36.6; O2SAT 70–99
--- NOTE | 2022-01-30 16:25 | ECG_ITS ---
[facility] Test Date: 2022-01-30 Pat Name: Dennis Mcintosh Department: Room: Gender: Male Molder: : 1945 Requested By: Dewayne Valentine Order Number: [id number] Kathi MD: Bernardino Saab M.D. Measurements Intervals [place] Rate: 157 P: 0 GA: 0 QRS: 107 QRSD: 86 T: 54 QT: 277 QTc: 448 Interpretive Statements ATRIAL FIBRILLATION WITH RAPID VENTRICULAR RESPONSE, PVCs versus aberrant ventricular conduction RIGHT AXIS DEVIATION [QRS AXIS > 100] POSSIBLE RIGHT VENTRICULAR CONDUCTION DELAY [RSR (QR) IN V1/V2] ANTEROSEPTAL MYOCARDIAL INFARCTION , OF INDETERMINATE AGE [40+ ms Q WAVE IN V1-V4] CRITICAL TEST RESULT Compared to ECG 06/03/2019 13:05:08 Aberrant conduction of supraventricular beat(s) no longer present Ventricular premature complex(es) no longer present Myocardial infarct finding still present Electronically Signed On 01-30-2022 20:38:50 VEGETABLE PREPARER by Bernardino Saab M.D. [id number]
--- NOTE | 2022-01-30 16:47 | XRR_ITS ---
PROCEDURE INFORMATION: Exam: XR Chest Exam date and time: 01/30/2022 5:53 PM Age: 76 years old Clinical indication: Cardiovascular condition or disease; Congestive heart failure (chf); Cause unknown; Type unknown TECHNIQUE: Imaging protocol: Radiologic exam of the chest. Views: 1 view. COMPARISON: CR XR chest 1V portable [id number] 04/15/2021 2:44 PM FINDINGS: Lungs: Unremarkable. No consolidation. Pleural spaces: Unremarkable. No pleural effusion. No pneumothorax. Heart/Mediastinum: Unremarkable. No cardiomegaly. Bones/joints: Unremarkable. XR/XR chest 1V portable [id number] IMPRESSION: No acute findings.
[2022-01-30] MEDS: sodium chloride 0.9% 500 ML 999 ML IV (17:02)
[2022-01-30 18:13] LABS: Basophils # 0.1 10^3/uL (0.0-0.1); Basophils % 0.7 %; Eosinophils # 0.1 10^3/uL (0.0-0.8); Hemoglobin 13.5 g/dL (11.7-16.6); Lymphocytes # 2.2 10^3/uL (0.8-4.8); Lymphocytes % 22.7 %; Mean Corpuscular HGB Conc 33.8 g/dL (30.0-36.0); Mean Corpuscular Hemoglobin 32.7 pg (28.0-34.0); Mean Corpuscular Volume 96.9 fl (80-94); Mean Platelet Volume 9.2 fL (7.4-10.4); Monocytes % 10.1 %; Neutrophils # 6.23 10^3/uL (1.8-7.7); Neutrophils % 65.3 %; Nucleated Red Blood Cells % 0 %; Platelet Count 365 10^3/cmm (130-400); Red Blood Count 4.13 10^6/uL (4.1-5.3); Red Cell Distribution Width 13.2 % (12.1-15.1); White Blood Count 9.6 10^3/uL (4.0-10.0)
[2022-01-30 18:36] LABS: Troponin(5th) Baseline 28 ng/L (0-15)
--- NOTE | 2022-01-30 18:38 | CTR_ITS ---
PROCEDURE INFORMATION: Exam: CTA Chest With Contrast Exam date and time: 01/30/2022 7:14 PM Age: 76 years old Clinical indication: Shortness of breath; Patient HX: C/O worsening SOB. Tachycardic on monitor. History of copd. ; Additional info: Per hospitalist: R/O pe TECHNIQUE: Imaging protocol: Computed tomographic angiography of the chest with contrast. 3D rendering (Not supervised by radiologist): MIP and/or 3D reconstructed images were created by the technologist. Radiation optimization: All CT scans at this facility use at least one of these dose optimization techniques: automated exposure control; mA and/or kV adjustment per patient size (includes targeted exams where dose is matched to clinical indication); or iterative reconstruction. Contrast material: OMNI 350; Contrast volume: 88 ml; Contrast route: INTRAVENOUS (IV); COMPARISON: CR (CHEST, ) 01/30/2022 5:53 PM RADIATION DOSE METRICS: Total DLP (mGy-cm): 279.81 FINDINGS: Pulmonary arteries: Normal. No pulmonary emboli. Aorta: Unremarkable. No aortic aneurysm. No aortic dissection. Lungs: Emphysematous changes. Pleural spaces: Unremarkable. No pneumothorax. No pleural effusion. Heart: Cardiomegaly. Coronary artery atherosclerotic calcifications. Lymph nodes: Scattered prominent mediastinal adenopathy measuring up to 10 mm. Bones/joints: Unremarkable. No acute fracture. Soft tissues: Unremarkable. CT/CT angio chest PE protcl [id number] IMPRESSION: 1. Negative for pulmonary embolus. 2. Scattered prominent mediastinal adenopathy measuring up to 10 mm. 3. Cardiomegaly. 4. Coronary artery atherosclerotic calcifications. 5. Emphysematous changes.
[2022-01-30 18:44] LABS: Alanine Aminotransferase 8 U/L (0-41); Albumin Level 3.4 g/dL (3.5-5.2); Alkaline Phosphatase 108 U/L (40-130); Anion Gap 14.3 (5-19); Aspartate Amino Transferase 14 U/L (0-40); Blood Urea Nitrogen 11 mg/dL (8-23); Calcium 9.1 mg/dL (8.5-10.5); Carbon Dioxide 30 mmol/L (22-29); Chloride 100 mmol/L (98-107); Globulin 3.2 g/dL (1.3-4.6); Glucose 101 mg/dL (65-115); NT Pro B Type Natriuretic Pept 1825 pg/mL (0-450); Osmolality Calculated 292 mOsm/kg (285-295); Potassium 3.3 mmol/L (3.5-5.1); Sodium 141 mmol/L (136-145); Total Bilirubin 0.5 mg/dL (0.15-1.2); Total Protein 6.6 g/dL (6.6-8.7)
--- NOTE | 2022-01-30 18:49 | ECG_ITS ---
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 Measurements Intervals [place] Rate: 138 P: 0 UT: 0 QRS: -25 QRSD: 85 T: 60 QT: 320 QTc: 485 Interpretive Statements ATRIAL FIBRILLATION WITH RAPID VENTRICULAR RESPONSE POSSIBLE RIGHT VENTRICULAR CONDUCTION DELAY [RSR (QR) IN V1/V2] ANTERIOR MYOCARDIAL INFARCTION , OF INDETERMINATE AGE [40+ ms Q WAVE AND/OR ST/T ABNORMALITY IN V3/V4] Compared to ECG 01/30/2022 16:25:04 Right-axis deviation no longer present Myocardial infarct finding still present Electronically Signed On 01-30-2022 20:46:11 FOREST FIRE FIGHTER by Bernardino Saab M.D. [id number]
--- NOTE | 2022-01-30 19:00 | W.ED.WEAKNES ---
HPI - Weakness General: Chief complaint: Weakness Stated complaint: SOB, Right leg swollen Time Seen by Provider: 01/30/22 16:30 History of Present Illness: 76-year-old male arrives to the emergency department and provides his own history. Patient tells me that he has been living in a car with his son and 6 dogs. He has been out of all of his medications for quite a long time. He felt so weak that he finally decided to come into the hospital. He normally takes apixaban, Lasix, metoprolol among other medications. He is found to have atrial fibrillation with a rapid ventricular response in the 150s. He denies any chest pain but does endorse wheezing and shortness of breath with exertion as well as mild orthopnea. His feet and ankles have been swollen. Associated symptoms: Denies chest pain, chills, dysuria, fever(s), headache(s), nausea, syncope or vomiting Review of Systems General: Reports: 10 or more systems reviewed and unremarkable except in HPI and below Const: Reports: fatigue and malaise; Denies: fever(s), chills or body aches Card: Reports: edema, swelling of feet/ankles and dyspnea on exertion; Denies: chest pain, lightheadedness or syncope Resp: Reports: productive cough (White thick mucus) and wheezing; Denies: pain on inspiration GI: Denies: abdominal pain, nausea, vomiting or diarrhea : Denies: flank pain or dysuria Skin/Breast: Denies: rash Neuro: Denies: headache(s) [facility] ED PFSH: Medical History A-fib Anxiety Cataracts, bilateral Chronic back pain Colon polyps Depression GERD (gastroesophageal reflux disease) Hiatal hernia History of prostate cancer treated with radiation Hypertension PAD (peripheral artery disease) Right inguinal hernia Surgical History H/O esophagogastroduodenoscopy (02/09/20) Status post colonoscopy with polypectomy (02/09/20) 06/2021 - colon polyps, diverticulosis Family History Father CAD (coronary artery disease) Mother Diabetes Social History Smoking and tobacco status: current every day smoker cigarettes Packs smoked per day: 1.5 Years cigarettes smoked: 40 Alcohol intake: former Former alcohol use details: quit 6-7 yrs ago Lives independently: Yes History of recent travel: No Physical Exam Const: COMMON NORMALS: no limitations, alert and well nourished EXAM LIMITATIONS: no altered mental status GENERAL APPEARANCE: cooperative and well developed ORIENTATION/CONSCIOUSNESS: Yes awake; not confused HENMT: COMMON NORMALS: normocephalic, atraumatic, external ears normal and Normal external nose present HEAD & SCALP: normal to inspection, normocephalic and atraumatic FACE & SINUS: face symmetric NOSE: Normal external nose present EXTERNAL EAR: Yes external ears normal MOUTH: lip normal; no muffled voice Eye: COMMON NORMALS: EOMs intact bilaterally and conjunctivae normal GENERAL EYE: appearance normal, both eyes and all related structures CONJUNCTIVA: Yes conjunctivae normal Neck/C-Spine: GENERAL: Yes normal visual inspection and Yes trachea midline Resp: COMMON NORMALS: normal respiratory effort and No use of accessory muscles EFFORT & INSPECTION: Yes able to speak in complete sentences, Yes symmetric chest movement, No respiratory distress and No labored AUSCULTATION: no crackles and wheezes Cardio: RATE: tachycardic RHYTHM: abnormal rhythm PERIPHERAL PULSES: radial pulses present GI: COMMON NORMALS: Soft to palpation INSPECTION: Yes normal to inspection PALPATION: Yes Soft to palpation, No Tenderness to palpation present (GI) and No Guarding due to palpation present (GI) Extremity: GENERAL: Yes normal exam except as noted Neuro: COMMON NORMALS: moves all extremities, no focal motor deficits and no sensory deficits noted SENSORIUM/ORIENTATION: Yes alert Psych: COMMON NORMALS: mental status grossly normal, Normal thought process present, cooperative, normal affect and speech normal SPEECH: Yes normal speech THOUGHT PROCESS: Normal thought process present Course Vital Signs: Vital signs: Vital Signs Temperature 97.8 F 01/30/22 16:02 Pulse Rate 152 H 01/30/22 18:15 Respiratory Rate 29 H 01/30/22 18:15 Blood Pressure 115/80 01/30/22 18:15 Pulse Oximetry 82 L 01/30/22 18:15 MDM - Weakness Medical Decision Making Patient presents with weakness primarily with exertion. No focal neurologic findings. He is in atrial fibrillation with a rapid ventricular response. This is likely the cause of his feeling weak. He also has underlying COPD and congestive heart failure. He is wheezing on examination. His EKG shows a ventricular rate of 157, rhythm is atrial fibrillation, PVCs are also noted, there is right axis deviation. No STEMI criteria. Chest x-ray shows a borderline enlarged heart. No consolidations or effusions noted. Some emphysematous changes are suggested. Patient's blood pressure was soft and therefore instead of starting something with a negative inotrope he we chose amiodarone. This may have to be temporary because the patient may have some pulmonary toxicity if used long-term. Patient has not been taking his anticoagulation so this will be restarted. Pulmonary embolism is a consideration but his room air is 97% without oxygen. Given the patient's uncontrolled atrial fibrillation with rapid ventricular response and generalized weakness and inability to take his medications at this time, he will be admitted to the stepdown unit. Discussed with hospitalist. Lab Data 01/30/22 18:05 01/30/22 18:05 Radiology Impressions Chest X-Ray 01/30/22 16:47 IMPRESSION: No acute findings. Laboratory Results WBC 9.6 10^3/uL (4.0-10.0) 01/30/22 18:05 RBC 4.13 10^6/uL (4.1-5.3) 01/30/22 18:05 Hgb 13.5 g/dL (11.7-16.6) 01/30/22 18:05 Hct 40.0 % (42.0-52.0) L 01/30/22 18:05 MCV 96.9 fl (80-94) H 01/30/22 18:05 MCH 32.7 pg (28.0-34.0) 01/30/22 18:05 MCHC 33.8 g/dL (30.0-36.0) 01/30/22 18:05 RDW 13.2 % (12.1-15.1) 01/30/22 18:05 Plt Count 365 10^3/cmm (130-400) 01/30/22 18:05 MPV 9.2 fL (7.4-10.4) 01/30/22 18:05 Neut % (Auto) 65.3 % 01/30/22 18:05 Lymph % (Auto) 22.7 % 01/30/22 18:05 [facility] % (Auto) 10.1 % 01/30/22 18:05 Eos % (Auto) 1.0 % 01/30/22 18:05 Baso % (Auto) 0.7 % 01/30/22 18:05 Neut # (Auto) 6.23 10^3/uL (1.8-7.7) 01/30/22 18:05 Lymph # (Auto) 2.2 10^3/uL (0.8-4.8) 01/30/22 18:05 [facility] # (Auto) 1.0 10^3/uL (0.2-0.9) H 01/30/22 18:05 Eos # (Auto) 0.1 10^3/uL (0.0-0.8) 01/30/22 18:05 Baso # (Auto) 0.1 10^3/uL (0.0-0.1) 01/30/22 18:05 Nucleated RBC % (auto) 0 % 01/30/22 18:05 Nucleated RBCs # 0.0 /100WBC 01/30/22 18:05 Sodium 141 mmol/L (136-145) 01/30/22 18:05 Potassium 3.3 mmol/L (3.5-5.1) L 01/30/22 18:05 Chloride 100 mmol/L (98-107) 01/30/22 18:05 Carbon Dioxide 30 mmol/L (22-29) H 01/30/22 18:05 Anion Gap 14.3 (5-19) 01/30/22 18:05 BUN 11 mg/dL (8-23) 01/30/22 18:05 Creatinine 1.1 mg/dL (0.7-1.2) 01/30/22 18:05 GFR Calculation Not Reportable 01/30/22 18:05 Glucose 101 mg/dL (65-115) 01/30/22 18:05 Calculated Osmolality 292 mOsm/kg (285-295) 01/30/22 18:05 Calcium 9.1 mg/dL (8.5-10.5) 01/30/22 18:05 Total Bilirubin 0.5 mg/dL (0.15-1.2) 01/30/22 18:05 AST 14 U/L (0-40) 01/30/22 18:05 ALT 8 U/L (0-41) 01/30/22 18:05 Alkaline Phosphatase 108 U/L (40-130) 01/30/22 18:05 Troponin T Baseline 28 ng/L (0-15) H 01/30/22 18:05 NT-Pro-B Natriuret Pep 1825 pg/mL (0-450) H 01/30/22 18:05 Total Protein 6.6 g/dL (6.6-8.7) 01/30/22 18:05 Albumin 3.4 g/dL (3.5-5.2) L 01/30/22 18:05 Globulin 3.2 g/dL (1.3-4.6) 01/30/22 18:05 Discharge Plan Discharge Condition: Stable Prescriptions: No Action ascorbate calcium (vitamin C) 500 mg tablet 2 g PO DAILY ProAir RespiClick 90 mcg/actuation aerosol powdr breath activated 2 inh INHALATION Q6H PRN (Reason: Shortness Of Breath) omeprazole 20 mg capsule,delayed release(DR/EC) 20 mg PO DAILY aspirin [Aspir-81] 81 mg tablet,delayed release (DR/EC) 81 mg PO DAILY potassium chloride 10 mEq tablet extended release 10 meq PO DAILY furosemide 20 mg tablet 20 mg PO DAILY Spiriva with HandiHaler 18 mcg capsule, w/inhalation device 1 cap inhalation DAILY Rx Instructions: puncture 1 cap using device; one dose = 2 inhalations omega-3 fatty acids 1,000 mg capsule 2,000 mg PO DAILY PRN atorvastatin 20 mg tablet 20 mg PO DAILY Eliquis 5 mg tablet 5 mg PO BID Qty: 60 3RF Hold Instructions: Resume on 06/17/21. (DME) Fast form cast See Rx Instructions .ROUTE .MEDSUPPLY Qty: 1 0RF Rx Instructions: directed metoprolol succinate 25 mg tablet extended release 24 hr 37.5 mg PO BID Qty: 60 1RF cholecalciferol (vitamin D3) [Vitamin D3] 125 mcg (5,000 unit) Tablet 125 mcg PO DAILY Referrals: Lico Pisano MD [Primary Care Provider] - Coding Level of Care Code ED Electrical Checkout Mechanic for [facility]
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
[2022-01-30] MEDS: iohexol 350 mg/mL 500 mL Btl (per mL) IV (19:27)
[2022-01-30] MEDS: ipratropium-albuterol 3 mL Neb INHALATION (19:32)
[2022-01-30] MEDS: apixaban 5 mg Tablet 10 MG PO (19:37)
[2022-01-30 20:07] LABS: Influenza A by IFA negative (Negative); Influenza B by IFA negative (Negative)
[2022-01-30 20:08] LABS: SARS Covid-2 Antigen negative (Negative)
--- NOTE | 2022-01-30 20:20 | USCV_ITS ---
Dennis Mcintosh Age: 76 Gender: M : 1945 Exam Date: 01/30/2022 23:26 Ordering Phys: Amado Márquez MD Technologist: UMM [place] [facility] [place]ication: atrial fibrillation with rvr. No history of cardiac intervention per patient. BP: 138 / 73 HR: 78 Rhythm: Atrial fibrillation Technical Quality: Adequate MEASUREMENTS (Male / Female) Normal Values 2D ECHO LV Diastolic Diameter PLAX 4.0 cm 4.2 - 5.9 / 3.9 - 5.3 cm LV Systolic Diameter PLAX 3.5 cm IVS Diastolic Thickness 1.2 cm 0.6 - 1.0 / 0.6 - 0.9 cm IVS Systolic Thickness 1.5 cm LVPW Diastolic Thickness 1.1 cm 0.6 - 1.0 / 0.6 - 0.9 cm LVPW Systolic Thickness 0.9 cm LVOT Diameter 1.9 cm LV Ejection Fraction 2D Teich 24.0 % LV Ejection Fraction MOD 2C 38.6 % LV Ejection Fraction 2C AL 39.6 % LA Diameter 4.1 cm LA Width 4.1 cm LA Height 6.6 cm RA Width 4.5 cm RA Height 5.9 cm Aorta at Sinotubular Diameter 3.0 cm IVC Diameter 2.0 cm M-MODE Aortic Annulus Diameter 2.9 cm LA Ao Ratio MM 1.3 MV E Point Septal Separation 1.4 cm DOPPLER AV Peak Velocity 98.0 cm/s LVOT Peak Velocity 55.0 cm/s AV Area Cont Eq vti 1.1 cm squared AV Area Cont Eq pk 1.6 cm squared MV Peak Velocity 141.0 cm/s MV Area PHT 5.0 cm squared MV E' Velocity 65.0 cm/s Mitral E to MV E' Ratio 15.1 Mitral E to LV E' Lateral Ratio 15.3 Mitral E to LV E' Septal Ratio 14.9 TR Peak Velocity 220.3 cm/s TR Peak Gradient 19.4 mmHg TV Peak E Velocity 46.0 cm/s Right Atrial Pressure 10.0 mmHg Pulmonary Artery Systolic Pressu 29.4 mmHg PV Peak Velocity 69.0 cm/s RV Acceleration Time 0.1 s RV Ejection Time 0.3 s RV AcT/ET 0.2 FINDINGS Left Ventricle LV size normal. LV systolic function is moderate to severely reduced with EF of 30-35%. Moderate global hypokionesis with severe hypokinesis of the anterior and apical hazel. Diastolic function is indeterminate because of atrial fibrillation. Right Ventricle RV is hypokinetic Right Atrium Normal Left Atrium Normal in size Mitral Valve Structurally normal mitral valve. Moderate mitral regurgitation. Aortic Valve Structurally normal aortic valve. No significant stenosis or regurgitation Tricuspid Valve Trace tricuspid regurgitation. Insufficient TR jet to calculate RVSP Pulmonic Valve Mild pulmonic regurgitation. Pericardium Normal Aorta Normal in size IVC Appears to be normal CONCLUSIONS LV systolic function is moderate to severely reduced with EF of 30 to 35%. Moderate global hypokinesis with severe hypokinesis of anterior and apical wall seen. Diastolic function is indeterminate because of atrial fibrillation. RV is hypokinetic. Moderate mitral regurgitation seen. Trace tricuspid regurgitation Mild pulmonic regurgitation Compared to prior echocardiogram from 08/2021, no significant changes are seen Vimal Neely MD (Electronically Signed) Final Date: 31 January 2022 13:35 S
[2022-01-30 20:50] LABS: Thyroid Stimulating Hormone 0.49 uIU/mL (0.27-4.20)
[2022-01-30] MEDS: FUROsemide 10 mg/mL SDV 10mL 60 MG IVP (20:51)
[2022-01-30] MEDS: morphine IR 15 mg Tablet PO (20:57)
[2022-01-30 21:01] LABS: Troponin 5 2HR 31.42 ng/L (0-15)
[2022-01-30 21:10] LABS: Troponin 5 2HR Delta 3.42 ABS# (0-10)
[2022-01-30] MEDS: digoxin 250 mcg/ml INJ 2 mL IVP (22:06)
[2022-01-30] MEDS: metoprolol tartrate 50 mg Tablet PO (22:07)
--- NOTE | 2022-01-30 22:46 | ECG_ITS ---
[facility] Test Date: 2022-01-30 Pat Name: Dennis Mcintosh Department: Room: 112 Gender: Male Senior Buyer: : 1945 Requested By: Dewayne Valentine Order Number: [id number] Kathi MD: Bernardino Saab M.D. Measurements Intervals [place] Rate: 122 P: 0 TN: 0 QRS: -53 QRSD: 89 T: 68 QT: 344 QTc: 492 Interpretive Statements ATRIAL FIBRILLATION WITH RAPID VENTRICULAR RESPONSE WITH ABERRANT CONDUCTION OR VENTRICULAR PREMATURE COMPLEXES POSSIBLE RIGHT VENTRICULAR CONDUCTION DELAY [RSR (QR) IN V1/V2] LEFT ANTERIOR FASCICULAR BLOCK [QRS AXIS <= -45, QR IN I, RS IN II] ANTERIOR MYOCARDIAL INFARCTION , OF INDETERMINATE AGE [40+ ms Q WAVE AND/OR ST/T ABNORMALITY IN V3/V4] Compared to ECG 01/30/2022 18:49:01 Ventricular premature complex(es) now present Aberrant conduction of supraventricular beat(s) now present Left anterior fascicular block now present Myocardial infarct finding still present Electronically Signed On 02-01-2022 12:43:53 BOILER OR ENGINE OPERATOR by Bernardino Saab M.D. [id number]
[2022-01-31] VITALS (59 sets, daily range): BP systolic 73–96; BP diastolic 50–65; PULSE 66–112; RESP 13–34; TEMP 36.6–37.3; O2SAT 77–95
[2022-01-31 00:26] LABS: Troponin 5 6HR 36.48 ng/L (0-15)
[2022-01-31 00:41] LABS: Troponin 5 6HR Delta 8.48 ng/L (0-12)
[2022-01-31 03:56] LABS: Basophils # 0.1 10^3/uL (0.0-0.1); Basophils % 0.8 %; Eosinophils # 0.1 10^3/uL (0.0-0.8); Eosinophils % 1.1 %; Hematocrit 37.9 % (42.0-52.0); Hemoglobin 12.6 g/dL (11.7-16.6); Lymphocytes # 2.2 10^3/uL (0.8-4.8); Lymphocytes % 20.4 %; Mean Corpuscular HGB Conc 33.2 g/dL (30.0-36.0); Mean Corpuscular Hemoglobin 32.7 pg (28.0-34.0); Mean Corpuscular Volume 98.4 fl (80-94); Mean Platelet Volume 9.3 fL (7.4-10.4); Monocytes # 1.1 10^3/uL (0.2-0.9); Monocytes % 9.8 %; Neutrophils # 7.26 10^3/uL (1.8-7.7); Neutrophils % 67.4 %; Nucleated Red Blood Cells % 0 %; Platelet Count 326 10^3/cmm (130-400); Red Blood Count 3.85 10^6/uL (4.1-5.3); Red Cell Distribution Width 13.2 % (12.1-15.1); White Blood Count 10.8 10^3/uL (4.0-10.0)
[2022-01-31 04:32] LABS: Anion Gap 15.2 (5-19); Blood Urea Nitrogen 10 mg/dL (8-23); C Reactive Protein 55.4 mg/L (0.0-4.9); Calcium 8.9 mg/dL (8.5-10.5); Carbon Dioxide 29 mmol/L (22-29); Chloride 97 mmol/L (98-107); Glucose 117 mg/dL (65-115); Magnesium 1.5 mg/dL (1.7-2.3); Osmolality Calculated 286 mOsm/kg (285-295); Potassium 3.2 mmol/L (3.5-5.1); Sodium 138 mmol/L (136-145)
[2022-01-31] MEDS: potassium chloride ER 20 mEq Tablet 40 MEQ PO (09:36)
[2022-01-31] MEDS: lidocaine 1% 5 ML in potassium chloride premix 100 ML 25 ML IV (09:37)
[2022-01-31] MEDS: atorvastatin 40 mg Tablet 20 MG PO (09:37)
[2022-01-31] MEDS: apixaban 5 mg Tablet PO ×2 (09:37→17:12)
[2022-01-31] MEDS: digoxin 125 mcg Tablet PO (09:37)
--- NOTE | 2022-01-31 10:09 | PC.CHAP ---
Pastoral Care Encounter/Spiritual Assessment Type of Contact [] Declined groundskeeper supervisor visit [] Patient/Family/Request visit [] Outpatient visit [] Follow-up visit [] Physician referral [] Code/Alert [x] Routine visit [] Staff referral [] Actively dying [] Patient sleeping [] Family support [] [] Out of room [] Palliative care [] [x] Receiving care in room [] Pre-surgical visit [] Trauma [] Long length of stay [] ICU visit [] Other: Relational/Emotional Strength [] Patient feels connected with others/family/visitors/staff [] Distress [] Loneliness/isolation [] Abandonment Spirituality of Patient [] Person of Lidia [] Attends Holiness of their Lidia [] Believes in Prayer [] Reads Bible or Congregational materials [] There are Spiritual issues to be addressed Food Prep Worker Interventions [] Prayer [] Active listening [] Non-anxious presence [] Spiritual/emotional support [] Crisis/trauma care [] Spiritual counseling [] Bereavement support [] Provided bereavement packet [] Provided Bible/devotional materials [] Provided toy/stuffed animal, coloring book to patient or family member [] Provided Communion [] Anointing/[place] [] Salvation [] Completed spiritual assessment [] Other: Impact on Illness or Injury [] Angry [] Fearful [] Anxious [] Often cries [] Exhaustion [] Unable to work [] Unable to attend sabianist [] Unable to walk/stand [] Unable to read [] Unable to drive [] Unable to eat/drink [] Unable to sleep [] Unable to be with family [] Patient intubated [] Other: Summary Time spent with patient
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
[2022-01-31] MEDS: amiodarone 200 mg Tablet PO (17:12)
[2022-01-31] MEDS: FUROsemide 10 mg/mL SDV 4mL 40 MG IVP (17:12)
[2022-01-31] MEDS: lidocaine 2% viscous 15 ML, aluminum-mag hydrox-simethicon 30 ML, sucralfate oral liq 1 GM PO (19:17)
[2022-02-01] VITALS (11 sets, daily range): BP systolic 79–141; BP diastolic 51–66; PULSE 70–120; RESP 18–23; TEMP 36.6–37; O2SAT 91–94
[2022-02-01] MEDS: amiodarone 200 mg Tablet PO ×2 (05:25→17:21)
[2022-02-01] MEDS: FUROsemide 10 mg/mL SDV 4mL 40 MG IVP ×2 (05:25→17:22)
[2022-02-01] MEDS: digoxin 125 mcg Tablet PO (08:15)
[2022-02-01] MEDS: atorvastatin 40 mg Tablet 20 MG PO (08:15)
[2022-02-01] MEDS: apixaban 5 mg Tablet PO ×2 (08:15→17:21)
[2022-02-01] MEDS: potassium chloride ER 20 mEq Tablet 40 MEQ PO (08:15)
[2022-02-01 08:26] LABS: Basophils # 0.1 10^3/uL (0.0-0.1); Basophils % 0.6 %; Eosinophils # 0.1 10^3/uL (0.0-0.8); Eosinophils % 1.1 %; Hemoglobin 15.4 g/dL (11.7-16.6); Lymphocytes # 2.7 10^3/uL (0.8-4.8); Lymphocytes % 25.3 %; Mean Corpuscular HGB Conc 33.5 g/dL (30.0-36.0); Mean Corpuscular Hemoglobin 32.7 pg (28.0-34.0); Mean Corpuscular Volume 97.7 fl (80-94); Mean Platelet Volume 9.2 fL (7.4-10.4); Monocytes # 0.8 10^3/uL (0.2-0.9); Monocytes % 7.6 %; Neutrophils # 6.97 10^3/uL (1.8-7.7); Neutrophils % 65.2 %; Nucleated Red Blood Cells % 0 %; Platelet Count 395 10^3/cmm (130-400); Red Blood Count 4.71 10^6/uL (4.1-5.3); White Blood Count 10.7 10^3/uL (4.0-10.0)
[2022-02-01 09:06] LABS: Alanine Aminotransferase 8 U/L (0-41); Albumin Level 4.1 g/dL (3.5-5.2); Alkaline Phosphatase 120 U/L (40-130); Anion Gap 15.7 (5-19); Aspartate Amino Transferase 18 U/L (0-40); Blood Urea Nitrogen 16 mg/dL (8-23); Calcium 9.9 mg/dL (8.5-10.5); Carbon Dioxide 31 mmol/L (22-29); Chloride 96 mmol/L (98-107); Globulin 3.8 g/dL (1.3-4.6); Glucose 113 mg/dL (65-115); Magnesium 1.9 mg/dL (1.7-2.3); NT Pro B Type Natriuretic Pept 5192 pg/mL (0-450); Osmolality Calculated 290 mOsm/kg (285-295); Potassium 3.7 mmol/L (3.5-5.1); Sodium 139 mmol/L (136-145); Total Bilirubin 0.6 mg/dL (0.15-1.2); Total Protein 7.9 g/dL (6.6-8.7)
[2022-02-01 09:15] LABS: Creatinine Clr Calc Pharmacy 46.1131
[2022-02-01] MEDS: metoprolol tartrate 25 mg Tablet 12.5 MG PO ×2 (10:03→20:31)
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
[2022-02-01] MEDS: doxycycline 100 MG in sodium chloride 0.9% (plus) 100 ML IV ×2 (11:50→20:30)
[2022-02-01] MEDS: morphine IR 15 mg Tablet PO (13:19)
[2022-02-01] MEDS: ipratropium-albuterol 3 mL Neb INHALATION (22:17)
[2022-02-01] MEDS: budesonide 0.5 mg/2 mL Neb INHALATION (22:17)
[2022-02-02] VITALS (11 sets, daily range): BP systolic 98–136; BP diastolic 50–72; PULSE 78–110; RESP 14–20; TEMP 36.4–37.1; O2SAT 92–96
[2022-02-02] MEDS: FUROsemide 10 mg/mL SDV 4mL 40 MG IVP ×2 (04:15→17:06)
[2022-02-02] MEDS: amiodarone 200 mg Tablet PO ×2 (04:15→17:07)
[2022-02-02 05:20] LABS: Basophils % 0.1 %; Hematocrit 43.9 % (42.0-52.0); Hemoglobin 15.1 g/dL (11.7-16.6); Lymphocytes # 1.6 10^3/uL (0.8-4.8); Lymphocytes % 11.9 %; Mean Corpuscular HGB Conc 34.4 g/dL (30.0-36.0); Mean Corpuscular Hemoglobin 33.2 pg (28.0-34.0); Mean Corpuscular Volume 96.5 fl (80-94); Mean Platelet Volume 10.2 fL (7.4-10.4); Monocytes # 0.4 10^3/uL (0.2-0.9); Monocytes % 3.1 %; Neutrophils # 11.59 10^3/uL (1.8-7.7); Neutrophils % 84.5 %; Nucleated Red Blood Cells % 0 %; Platelet Count 444 10^3/cmm (130-400); Red Blood Count 4.55 10^6/uL (4.1-5.3); Red Cell Distribution Width 12.6 % (12.1-15.1); White Blood Count 13.7 10^3/uL (4.0-10.0)
[2022-02-02 07:35] LABS: Alanine Aminotransferase 9 U/L (0-41); Albumin Level 3.8 g/dL (3.5-5.2); Alkaline Phosphatase 108 U/L (40-130); Aspartate Amino Transferase 19 U/L (0-40); Blood Urea Nitrogen 23 mg/dL (8-23); Calcium 9.8 mg/dL (8.5-10.5); Carbon Dioxide 25 mmol/L (22-29); Chloride 96 mmol/L (98-107); Creatinine Clr Calc Pharmacy 46.1131; Glucose 136 mg/dL (65-115); Osmolality Calculated 286 mOsm/kg (285-295); Phosphorus 3.3 mg/dL (2.5-4.5); Sodium 135 mmol/L (136-145); Total Bilirubin 0.5 mg/dL (0.15-1.2); Total Protein 7.8 g/dL (6.6-8.7)
[2022-02-02 07:46] LABS: Anion Gap 18.6 (5-19); Potassium 4.6 mmol/L (3.5-5.1)
[2022-02-02] MEDS: predniSONE 20 mg Tablet 40 MG PO (08:16)
[2022-02-02] MEDS: digoxin 125 mcg Tablet PO (08:16)
[2022-02-02] MEDS: metoprolol tartrate 25 mg Tablet 12.5 MG PO ×2 (08:17→21:05)
[2022-02-02] MEDS: apixaban 5 mg Tablet PO ×2 (08:18→17:07)
[2022-02-02] MEDS: atorvastatin 40 mg Tablet 20 MG PO (08:18)
[2022-02-02] MEDS: ipratropium-albuterol 3 mL Neb INHALATION ×2 (09:09→22:37)
[2022-02-02] MEDS: budesonide 0.5 mg/2 mL Neb INHALATION ×2 (09:10→22:37)
[2022-02-02] MEDS: doxycycline 100 MG in sodium chloride 0.9% (plus) 100 ML IV ×2 (10:40→21:06)
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
[2022-02-03] VITALS (16 sets, daily range): BP systolic 98–118; BP diastolic 48–69; PULSE 68–92; RESP 16–23; TEMP 36.7–37.1; O2SAT 87–97
[2022-02-03 05:16] LABS: Basophils % 0.1 %; Hematocrit 42.8 % (42.0-52.0); Hemoglobin 14.7 g/dL (11.7-16.6); Lymphocytes # 2.2 10^3/uL (0.8-4.8); Lymphocytes % 15.8 %; Mean Corpuscular HGB Conc 34.3 g/dL (30.0-36.0); Mean Corpuscular Hemoglobin 32.3 pg (28.0-34.0); Mean Corpuscular Volume 94.1 fl (80-94); Mean Platelet Volume 9.6 fL (7.4-10.4); Monocytes # 0.7 10^3/uL (0.2-0.9); Monocytes % 4.8 %; Neutrophils % 78.8 %; Nucleated Red Blood Cells % 0 %; Platelet Count 456 10^3/cmm (130-400); Red Blood Count 4.55 10^6/uL (4.1-5.3); Red Cell Distribution Width 12.7 % (12.1-15.1); White Blood Count 14.1 10^3/uL (4.0-10.0)
[2022-02-03 05:46] LABS: Alanine Aminotransferase 9 U/L (0-41); Albumin Level 3.6 g/dL (3.5-5.2); Alkaline Phosphatase 95 U/L (40-130); Anion Gap 17.2 (5-19); Aspartate Amino Transferase 16 U/L (0-40); Blood Urea Nitrogen 39 mg/dL (8-23); Calcium 9.6 mg/dL (8.5-10.5); Carbon Dioxide 28 mmol/L (22-29); Chloride 97 mmol/L (98-107); Globulin 3.3 g/dL (1.3-4.6); Glucose 103 mg/dL (65-115); Magnesium 2.1 mg/dL (1.7-2.3); Osmolality Calculated 296 mOsm/kg (285-295); Phosphorus 3.7 mg/dL (2.5-4.5); Potassium 4.2 mmol/L (3.5-5.1); Sodium 138 mmol/L (136-145); Total Bilirubin 0.3 mg/dL (0.15-1.2); Total Protein 6.9 g/dL (6.6-8.7)
[2022-02-03] MEDS: amiodarone 200 mg Tablet PO ×2 (06:02→16:59)
[2022-02-03] MEDS: FUROsemide 10 mg/mL SDV 4mL 40 MG IVP ×2 (06:02→16:59)
[2022-02-03] MEDS: ipratropium-albuterol 3 mL Neb INHALATION ×2 (08:05→15:27)
[2022-02-03] MEDS: budesonide 0.5 mg/2 mL Neb INHALATION (08:05)
[2022-02-03] MEDS: potassium chloride ER 20 mEq Tablet 40 MEQ PO (08:12)
[2022-02-03] MEDS: atorvastatin 40 mg Tablet 20 MG PO (08:12)
[2022-02-03] MEDS: apixaban 5 mg Tablet PO ×2 (08:12→16:59)
[2022-02-03] MEDS: digoxin 125 mcg Tablet PO (08:12)
[2022-02-03] MEDS: metoprolol tartrate 25 mg Tablet 12.5 MG PO ×2 (08:12→21:52)
[2022-02-03] MEDS: predniSONE 20 mg Tablet 40 MG PO (08:13)
--- NOTE | 2022-02-03 08:56 | PC.SOCIAL ---
Imm update Imm updated with patient at bedside. Copy of page 2 provided. Patient verbalized understanding. Copy in chart initialed, dated and timed.
[2022-02-03] MEDS: doxycycline 100 MG in sodium chloride 0.9% (plus) 100 ML IV (10:49)
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
[2022-02-04] VITALS (14 sets, daily range): BP systolic 93–122; BP diastolic 48–61; PULSE 67–97; RESP 16–20; TEMP 36.6–37.1; O2SAT 93–97
[2022-02-04] MEDS: amiodarone 200 mg Tablet PO ×2 (03:19→16:51)
[2022-02-04] MEDS: FUROsemide 10 mg/mL SDV 4mL 40 MG IVP (06:39)
[2022-02-04] MEDS: apixaban 5 mg Tablet PO ×2 (08:28→16:52)
[2022-02-04] MEDS: potassium chloride ER 20 mEq Tablet 40 MEQ PO (08:28)
[2022-02-04] MEDS: atorvastatin 40 mg Tablet 20 MG PO (08:28)
[2022-02-04] MEDS: predniSONE 20 mg Tablet 40 MG PO (08:28)
[2022-02-04] MEDS: digoxin 125 mcg Tablet PO (08:29)
[2022-02-04] MEDS: metoprolol tartrate 25 mg Tablet 12.5 MG PO ×2 (08:29→20:43)
[2022-02-04] MEDS: budesonide 0.5 mg/2 mL Neb INHALATION (08:32)
[2022-02-04] MEDS: ipratropium-albuterol 3 mL Neb INHALATION ×3 (08:32→15:40)
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
[2022-02-04] MEDS: FUROsemide 40 mg Tablet PO (16:52)
[2022-02-05] VITALS (13 sets, daily range): BP systolic 89–107; BP diastolic 46–72; PULSE 64–102; RESP 13–24; TEMP 36.7–37.1; O2SAT 93–97
[2022-02-05] MEDS: amiodarone 200 mg Tablet PO ×2 (05:07→16:49)
[2022-02-05] MEDS: FUROsemide 40 mg Tablet PO (05:07)
[2022-02-05] MEDS: digoxin 125 mcg Tablet PO (08:28)
[2022-02-05] MEDS: potassium chloride ER 20 mEq Tablet 40 MEQ PO (08:28)
[2022-02-05] MEDS: predniSONE 20 mg Tablet 40 MG PO (08:28)
[2022-02-05] MEDS: apixaban 5 mg Tablet PO ×2 (08:29→16:49)
[2022-02-05] MEDS: metoprolol tartrate 25 mg Tablet 12.5 MG PO ×2 (08:29→20:30)
[2022-02-05] MEDS: atorvastatin 40 mg Tablet 20 MG PO (08:29)
[2022-02-05] MEDS: budesonide 0.5 mg/2 mL Neb INHALATION ×2 (08:45→19:38)
--- NOTE | 2022-02-05 09:41 | PC.SOCIAL ---
IMM Updated Updated pt on IMM. No questions voiced. Provided pt a copy. Initialed, dated, & timed copy in chart.
[2022-02-05] MEDS: ipratropium-albuterol 3 mL Neb INHALATION ×4 (12:55→19:38)
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
--- NOTE | 2022-02-05 16:10 | XRR_ITS ---
PROCEDURE INFORMATION: Exam: XR Chest Exam date and time: 02/05/2022 5:25 PM Age: 76 years old Clinical indication: Cough and shortness of breath; Additional info: Cough, dyspnea TECHNIQUE: Imaging protocol: Radiologic exam of the chest. Views: 1 view. COMPARISON: CR (CHEST, ) 01/30/2022 5:53 PM FINDINGS: Lungs: Lungs are clear. Pleural spaces: There is no pleural effusion or pneumothorax. Heart/Mediastinum: Cardiomediastinal contours are unremarkable. Bones/joints: Bones are unremarkable. XR/XR chest 1V portable [id number] IMPRESSION: No acute findings.
[2022-02-05] MEDS: FUROsemide 40 mg Tablet 80 MG PO (16:49)
--- NOTE | 2022-02-05 17:23 | PC.NURSE ---
This nurse agrees with all documentation and medication demonstrations by Student Nurse
[2022-02-06] VITALS (12 sets, daily range): BP systolic 86–129; BP diastolic 48–74; PULSE 67–91; RESP 12–23; TEMP 36.9; O2SAT 95–96
[2022-02-06] MEDS: amiodarone 200 mg Tablet PO ×2 (04:25→18:00)
[2022-02-06] MEDS: FUROsemide 40 mg Tablet 80 MG PO ×2 (04:25→18:00)
[2022-02-06 05:38] LABS: Basophils % 0.2 %; Eosinophils % 0.2 %; Hemoglobin 15.6 g/dL (11.7-16.6); Lymphocytes # 4.1 10^3/uL (0.8-4.8); Lymphocytes % 30.9 %; Mean Corpuscular HGB Conc 33.9 g/dL (30.0-36.0); Mean Corpuscular Hemoglobin 32.2 pg (28.0-34.0); Mean Platelet Volume 9.9 fL (7.4-10.4); Monocytes % 7.3 %; Neutrophils # 8.13 10^3/uL (1.8-7.7); Neutrophils % 60.9 %; Nucleated Red Blood Cells % 0 %; Platelet Count 408 10^3/cmm (130-400); Red Blood Count 4.84 10^6/uL (4.1-5.3); Red Cell Distribution Width 12.4 % (12.1-15.1); White Blood Count 13.3 10^3/uL (4.0-10.0)
[2022-02-06 06:15] LABS: Alanine Aminotransferase 12 U/L (0-41); Albumin Level 3.7 g/dL (3.5-5.2); Alkaline Phosphatase 100 U/L (40-130); Anion Gap 19.2 (5-19); Aspartate Amino Transferase 14 U/L (0-40); Blood Urea Nitrogen 47 mg/dL (8-23); Calcium 9.8 mg/dL (8.5-10.5); Carbon Dioxide 25 mmol/L (22-29); Chloride 95 mmol/L (98-107); Globulin 3.5 g/dL (1.3-4.6); Glucose 91 mg/dL (65-115); Osmolality Calculated 292 mOsm/kg (285-295); Potassium 4.2 mmol/L (3.5-5.1); Sodium 135 mmol/L (136-145); Total Bilirubin 0.4 mg/dL (0.15-1.2); Total Protein 7.2 g/dL (6.6-8.7)
[2022-02-06] MEDS: budesonide 0.5 mg/2 mL Neb INHALATION (08:40)
[2022-02-06] MEDS: ipratropium-albuterol 3 mL Neb INHALATION ×2 (08:40→11:16)
[2022-02-06] MEDS: apixaban 5 mg Tablet PO ×2 (08:53→18:00)
[2022-02-06] MEDS: digoxin 125 mcg Tablet PO (08:54)
[2022-02-06] MEDS: potassium chloride ER 20 mEq Tablet 40 MEQ PO (08:55)
[2022-02-06] MEDS: atorvastatin 40 mg Tablet 20 MG PO (08:55)
[2022-02-06] MEDS: metoprolol tartrate 25 mg Tablet 12.5 MG PO ×2 (09:22→20:32)
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
[2022-02-07] VITALS (13 sets, daily range): BP systolic 92–125; BP diastolic 59–84; PULSE 61–81; RESP 14–22; TEMP 36.6–36.7; O2SAT 95–99
[2022-02-07] MEDS: amiodarone 200 mg Tablet PO ×2 (04:19→17:55)
[2022-02-07] MEDS: FUROsemide 40 mg Tablet 80 MG PO ×2 (04:20→17:55)
[2022-02-07] MEDS: budesonide 0.5 mg/2 mL Neb INHALATION (07:43)
[2022-02-07] MEDS: ipratropium-albuterol 3 mL Neb INHALATION ×2 (07:43→11:42)
[2022-02-07] MEDS: sennosides-docusate Tablet 1 TAB PO ×2 (09:18→17:55)
[2022-02-07] MEDS: lactulose oral liq 20 gm/30 mL UDC 10 GM PO (09:19)
[2022-02-07] MEDS: nicotine 21 mg Patch 1 PATCH TRANSDERMA (09:19)
[2022-02-07] MEDS: metoprolol tartrate 25 mg Tablet 12.5 MG PO ×2 (09:20→20:00)
[2022-02-07] MEDS: atorvastatin 40 mg Tablet 20 MG PO (09:21)
[2022-02-07] MEDS: potassium chloride ER 20 mEq Tablet 40 MEQ PO (09:21)
[2022-02-07] MEDS: apixaban 5 mg Tablet PO ×2 (09:21→17:55)
[2022-02-07] MEDS: digoxin 125 mcg Tablet PO (09:21)
--- NOTE | 2022-02-07 10:00 | PC.SOCIAL ---
IMM Updated Updated pt on IMM. No questions voiced. Provided pt a copy. Initialed, dated, & timed copy in chart.
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
[2022-02-08] VITALS (7 sets, daily range): BP systolic 103–116; BP diastolic 52–71; PULSE 61–79; RESP 18; TEMP 36.4–36.7; O2SAT 95–97
[2022-02-08] MEDS: FUROsemide 40 mg Tablet 80 MG PO (03:31)
[2022-02-08] MEDS: amiodarone 200 mg Tablet PO (03:31)
[2022-02-08] MEDS: budesonide 0.5 mg/2 mL Neb INHALATION (07:51)
[2022-02-08] MEDS: ipratropium-albuterol 3 mL Neb INHALATION (07:51)
[2022-02-08] MEDS: potassium chloride ER 20 mEq Tablet 40 MEQ PO (08:04)
[2022-02-08] MEDS: atorvastatin 40 mg Tablet 20 MG PO (08:04)
[2022-02-08] MEDS: metoprolol tartrate 25 mg Tablet 12.5 MG PO (08:04)
[2022-02-08] MEDS: digoxin 125 mcg Tablet PO (08:04)
[2022-02-08] MEDS: apixaban 5 mg Tablet PO (08:04)
[2022-02-08] MEDS: sennosides-docusate Tablet 1 TAB PO (08:05)
[2022-02-08] MEDS: nicotine 21 mg Patch 1 PATCH TRANSDERMA (08:05)
--- NOTE | 2022-02-08 09:47 | P.DS_ITS ---
Discharge Providers Date of Admission: 01/31/22 15:19 Date of Discharge: February 08, 2022 Attending Provider at Admission: Amado Márquez MD Attending Provider at Discharge: Kori Bolivar MD Primary Care Provider: Lico Pisano MD Diagnoses at Discharge Discharge Diagnosis (1) PAD (peripheral artery disease): Status: Acute (2) CHF (NYHA class III, ACC/AHA stage C): Status: Acute (3) Severe mitral regurgitation: Status: Chronic (4) Atrial fibrillation with RVR: Status: Acute Permanent problem details: -[id number] score-3, needs long-term anticoagulation (5) Acute exacerbation of CHF (congestive heart failure): Status: Acute Qualifiers: Heart failure type: unspecified Qualified Code(s): I50.9 - Heart failure, unspecified Permanent problem details: - -daily weights, monitor Is & Os, fluid restriction (1.5 L/day) -no baseline Echo on record, EF=25%, noted wall motion abnormalities, severe MR, moderate TR, severe pulmonary HTN (56) (6) Chronic back pain: Status: Acute (7) Smoker: Status: Chronic Permanent problem details: -Chronic smoker; 1 PPD x > 40 yrs (8) COPD (chronic obstructive pulmonary disease): Status: Chronic Qualifiers: COPD type: unspecified COPD Qualified Code(s): J44.9 - Chronic obstructive pulmonary disease, unspecified Permanent problem details: -has known hx of COPD, not oxygen dependent at baseline, Reason for Visit Reason for Visit: SOB, Right leg swollen Brief History: Taken from H&P: Dennis Mcintosh is a 76 year old male who has been living in a car with her son for last 2 weeks because they have been evicted from a rental property presenting because of generalized weakness and fatigue.? Patient has not taken his medication for last 2 weeks, he carries history of A. fib, chronic anticoagul ation with Eliquis, hypertension, patient is stating that he was living in a car with her son along with dogs and not able to take care of himself and noticed significant weakness to the point that he was not able to get up on his own.? He did not notice strokelike features.? He has not noticed any fever, diarrhea however endorsing intermittent chest pain and shortness of breath Hospital Course Hospital Course Patient was found to have A. fib with RVR and acute on chronic CHF exacerbation, likely related to noncompliance and dietary indiscretion. It has been difficult for patient to take his medications because of his homeless state as well. His EF was noted to be between 25 to 35%. Upon initial presentation he was placed on an amiodarone drip which has now been converted to oral. He would also be initiated on digoxin on this current admission. Metoprolol dose has been reduced to 12.5 mg p.o. twice daily. He also received diuresis initially with IV Lasix, converted to p.o. He is advised to take 40 mg p.o. twice daily for the next 3 days and then reduce the dose to 40 mg daily. Case was discussed w [facility] cardiology on-call by Dr. Becker and given his diminished ejection fraction on LifeVest placement was recommended. The same has been arranged at the time of discharge. Patient reported being homeless, initially efforts were being directed towards finding him an appropriate fdc placement, however in the interim patient was able to make his own arrangements. He has a new apartment where he will be living with his son starting today. He states that he does not want us to look for appropriate placement anymore. New medications at the time of discharge are amiodarone 200 mg p.o. twice daily, metoprolol dose reduced to 12.5 mg p.o. twice daily, digoxin 125 mcg p.o. daily. Follow-up with cardiology within 1 week of discharge Physical Exam Narrative: General: No acute distress, AO x3 HEENT: PERRLA, pupils bilaterally equal and reactive, pallors not present Chest: Normal vesicular breath sounds, no added sounds, equal good air entry bilaterally CVS: S1-S2 regular, no murmurs, no tachycardia, no gallops, no rubs Abdomen: Soft, nontender, no organomegaly, bowel sounds present Neuro: No focal deficits, no facial deformity, AO x3, power 5/5 in all limbs Discharge Data Studies Completed and Pending Completed Studies During Hospitalization Category Date Time Status CT angio chest PE protcl [id number] Stat Cat Scan 01/30/22 18:38 Completed CXRP [XR chest 1V portable [id number]] Routine Exams 02/05/22 16:10 Completed XR chest 1V portable [id number] Stat Exams 01/30/22 16:47 Completed CV. echo complete* [id number] Routine Ultrasound 01/30/22 20:20 Completed Radiology Impressions Chest CTA 01/30/22 18:38 IMPRESSION: 1. Negative for pulmonary embolus. 2. Scattered prominent mediastinal adenopathy measuring up to 10 mm. 3. Cardiomegaly. 4. Coronary artery atherosclerotic calcifications. 5. Emphysematous changes. Chest X-Ray 02/05/22 16:10 IMPRESSION: No acute findings. Laboratory Results WBC 13.3 10^3/uL (4.0-10.0) H 02/06/22 04:20 RBC 4.84 10^6/uL (4.1-5.3) 02/06/22 04:20 Hgb 15.6 g/dL (11.7-16.6) 02/06/22 04:20 Hct 46.0 % (42.0-52.0) 02/06/22 04:20 MCV 95.0 fl (80-94) H 02/06/22 04:20 MCH 32.2 pg (28.0-34.0) 02/06/22 04:20 MCHC 33.9 g/dL (30.0-36.0) 02/06/22 04:20 RDW 12.4 % (12.1-15.1) 02/06/22 04:20 Plt Count 408 10^3/cmm (130-400) H 02/06/22 04:20 MPV 9.9 fL (7.4-10.4) 02/06/22 04:20 Neut % (Auto) 60.9 % 02/06/22 04:20 Lymph % (Auto) 30.9 % 02/06/22 04:20 [place] % (Auto) 7.3 % 02/06/22 04:20 Eos % (Auto) 0.2 % 02/06/22 04:20 Baso % (Auto) 0.2 % 02/06/22 04:20 Neut # (Auto) 8.13 10^3/uL (1.8-7.7) H 02/06/22 04:20 Lymph # (Auto) 4.1 10^3/uL (0.8-4.8) 02/06/22 04:20 [place] # (Auto) 1.0 10^3/uL (0.2-0.9) H 02/06/22 04:20 Eos # (Auto) 0.0 10^3/uL (0.0-0.8) 02/06/22 04:20 Baso # (Auto) 0.0 10^3/uL (0.0-0.1) 02/06/22 04:20 Nucleated RBC % (auto) 0 % 02/06/22 04:20 Nucleated RBCs # 0.0 /100WBC 02/06/22 04:20 D-Dimer 0.40 ug/mIFEU (0-0.59) 01/30/22 18:05 Sodium 135 mmol/L (136-145) L 02/06/22 04:20 Potassium 4.2 mmol/L (3.5-5.1) 02/06/22 04:20 Chloride 95 mmol/L (98-107) L 02/06/22 04:20 Carbon Dioxide 25 mmol/L (22-29) 02/06/22 04:20 Anion Gap 19.2 (5-19) H 02/06/22 04:20 BUN 47 mg/dL (8-23) H 02/06/22 04:20 Creatinine 1.5 mg/dL (0.7-1.2) H 02/06/22 04:20 GFR Calculation Not Reportable 02/06/22 04:20 Glucose 91 mg/dL (65-115) 02/06/22 04:20 Calculated Osmolality 292 mOsm/kg (285-295) 02/06/22 04:20 Calcium 9.8 mg/dL (8.5-10.5) 02/06/22 04:20 Phosphorus 3.7 mg/dL (2.5-4.5) 02/03/22 03:30 Magnesium 2.1 mg/dL (1.7-2.3) 02/03/22 03:30 Total Bilirubin 0.4 mg/dL (0.15-1.2) 02/06/22 04:20 AST 14 U/L (0-40) 02/06/22 04:20 ALT 12 U/L (0-41) 02/06/22 04:20 Alkaline Phosphatase 100 U/L (40-130) 02/06/22 04:20 Troponin T Baseline 28 ng/L (0-15) H 01/30/22 18:05 Troponin T 120 Minute 31.42 ng/L (0-15) H 01/30/22 20:33 Delta Troponin T 3.42 ABS# (0-10) 01/30/22 20:33 Troponin T Hi Sens 6Hr 36.48 ng/L (0-15) H 01/31/22 23:59 Troponin T Hi Sens 6Hr Delta 8.48 ng/L (0-12) 01/31/22 23:59 C-Reactive Protein 55.4 mg/L (0.0-4.9) H 01/31/22 03:41 NT-Pro-B Natriuret Pep 5192 pg/mL (0-450) H 02/01/22 08:09 Total Protein 7.2 g/dL (6.6-8.7) 02/06/22 04:20 Albumin 3.7 g/dL (3.5-5.2) 02/06/22 04:20 Globulin 3.5 g/dL (1.3-4.6) 02/06/22 04:20 TSH 0.49 uIU/mL (0.27-4.20) 01/30/22 18:05 Influenza Type A Ag negative (Negative) 01/30/22 19:40 Influenza Type B Ag negative (Negative) 01/30/22 19:40 SARS-CoV-2 Ag (Rapid) negative (Negative) 01/30/22 19:40 Vitals Last Vital Signs Temp 97.6 F 02/08/22 07:41 Pulse 79 02/08/22 08:04 Resp 18 02/08/22 07:51 BP 116/71 02/08/22 07:41 Pulse Ox 96 02/08/22 07:51 O2 Del Method 02/08/22 07:51 Discharge Plan Discharge Patient Disposition: Home Condition: Stable Prescriptions: New Pacerone 200 mg Tablet 200 mg PO Q12H 14 Days Qty: 28 0RF digoxin 125 mcg (0.125 mg) Tablet 125 mcg PO DAILY 14 Days Qty: 14 0RF Continued ascorbate calcium (vitamin C) 500 mg tablet 2 g PO DAILY omeprazole 20 mg capsule,delayed release(DR/EC) 20 mg PO DAILY aspirin [Aspir-81] 81 mg tablet,delayed release (DR/EC) 81 mg PO DAILY omega-3 fatty acids 1,000 mg capsule 2,000 mg PO DAILY cholecalciferol (vitamin D3) [Vitamin D3] 125 mcg (5,000 unit) Tablet 125 mcg PO DAILY atorvastatin 20 mg tablet 20 mg PO DAILY 30 Days Qty: 30 0RF potassium chloride 10 mEq tablet extended release 10 meq PO DAILY 30 Days Qty: 30 0RF Spiriva with HandiHaler 18 mcg capsule, w/inhalation device 1 cap inhalation DAILY 30 Days Qty: 30 0RF Rx Instructions: puncture 1 cap using device; one dose = 2 inhalations Eliquis 5 mg tablet 5 mg PO BID Qty: 60 3RF ProAir RespiClick 90 mcg/actuation aerosol powdr breath activated 2 inh INHALATION Q6H PRN (Reason: Shortness Of Breath) 30 Days Qty: 1 1RF Changed furosemide 20 mg tablet 40 mg PO DAILY 30 Days Qty: 30 0RF metoprolol succinate 25 mg tablet extended release 24 hr 12.5 mg PO BID 30 Days Qty: 60 1RF Discharge Orders: Discharge Order (Routine); Ordered 02/08/22 Ordered By: Kori Bolivar Referrals: Lico Pisano MD [Primary Care Provider] - 1 week (You will have an appointment with your pcp on February 20Saturday at 10:30 AM. If you need to reschedule your appointment please call ahead of time. Thank You.) Reshma Jordan FNP [Nurse Practitioner] - 1 week (You will have an appointment with Ms Reshma Jordan NP at [facility] on February 16 at 9 AM. If you need to reschdule your appointment please let them know ahead of time. Thank You.) Discharge Diet: Cardiac Discharge Activity: Resume usual activity and Increase activity as tolerated Patient Instructions: Opioid Safety Activity Restrictions/Additional Instructions: take lasix 40mg BID for 3 days, then reduce dose to 40mg daily Discharge Attestations Time Spent in Discharge Care*: greater than 30 min Status at Discharge: Cognitive status at discharge: cognitively intact , Behavioral status at discharge: cooperative , Quality Metrics Clinical Quality Measures [ No reported AMI, CVA or VTE this stay] Coding Level of Care Code Acute g FW NE note Diagnoses PAD (peripheral artery disease) I73.9 CHF (NYHA class III, ACC/AHA stage C) I50.9 Severe mitral regurgitation I34.0 Atrial fibrillation with RVR I48.91 Acute exacerbation of CHF (congestive heart failure) I50.9 Heart failure type: unspecified Chronic back pain M54.9; G89.29 Smoker F17.200 COPD (chronic obstructive pulmonary disease) J44.9 COPD type: unspecified COPD
--- NOTE | 2022-02-08 11:35 | PC.NURSE ---
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
== END 2022-02-08 11:33 | disposition home or self-care (01) | DRG 291 ==
LOC: ER 19:27 → CSU 20:48
PROVIDERS: Family Medicine; Admitting Provider Internal Medicine; Emergency Provider Emergency Medicine; PCP Family Medicine; Visit Provider Student in an Organized Health Care Education/Training Program
DX: I11.0 Hypertensive heart disease with heart failure (principal); I50.23 Acute on chronic systolic (congestive) heart failure; J44.1 Chronic obstructive pulmonary disease with (acute) exacerbation; Z59.02 Unsheltered homelessness; I48.91 Unspecified atrial fibrillation; F17.210 Nicotine dependence, cigarettes, uncomplicated; F10.11 Alcohol abuse, in remission; F41.9 Anxiety disorder, unspecified; G89.29 Other chronic pain; M54.9 Dorsalgia, unspecified; F32.A Depression, unspecified; K21.9 Gastro-esophageal reflux disease without esophagitis; Z85.46 Personal history of malignant neoplasm of prostate; Z92.3 Personal history of irradiation; I73.9 Peripheral vascular disease, unspecified; I08.1 Rheumatic disorders of both mitral and tricuspid valves; Z91.119 Patient's noncompliance with dietary regimen due to unspecified reason; Z79.01 Long term (current) use of anticoagulants; Z79.82 Long term (current) use of aspirin; I27.20 Pulmonary hypertension, unspecified; K59.00 Constipation, unspecified; Z75.1 Person awaiting admission to adequate facility elsewhere
CPT/HCPCS: 36415; 71045; 71275; 80048; 80053; 83735; 83880; 84100; 84443; 84484; 85025; 85378; 86140; 87426; 87804; 93005; 93306; 94640; 96365; 96366; 97110; 97116; 97162; 97165; 97535; 99285; A4222; G0378; J0282; J1160; J1940; J2930; J3480; J3490; J3535; J7040; J7060; J7512; J7626; Q9967

== ENCOUNTER 2022-04-24 10:41 | Outpatient (CLI) | payer MEDICARE, MEDICAID, SELFPAY ==
--- NOTE | 2022-04-24 11:15 | USCV_ITS ---
Dennis Mcintosh Age: 76 Gender: M : 1945 Exam Date: 04/24/2022 12:23 Ordering Phys: Emilia Hernandez MD ([email or web address]) Technologist: Exam Location: [facility] Indication: Assess LV function BP: 129 / 73 HR: 115 Rhythm: Sinus Technical Quality: Adequate MEASUREMENTS (Male / Female) Normal Values 2D ECHO LV Diastolic Diameter PLAX 3.7 cm 4.2 - 5.9 / 3.9 - 5.3 cm LV Systolic Diameter PLAX 3.0 cm IVS Diastolic Thickness 1.3 cm 0.6 - 1.0 / 0.6 - 0.9 cm IVS Systolic Thickness 1.2 cm LVPW Diastolic Thickness 1.2 cm 0.6 - 1.0 / 0.6 - 0.9 cm LVPW Systolic Thickness 1.0 cm LVOT Diameter 2.0 cm LV Ejection Fraction 2D Teich 32.1 % LV Ejection Fraction MOD 2C -8.0 % LV Ejection Fraction 2C AL -6.7 % LA Diameter 4.1 cm Aorta at Sinotubular Diameter 3.2 cm IVC Diameter 2.1 cm FINDINGS Left Ventricle Normal left ventricular cavity size. Moderately decreased left ventricular systolic function. Left ventricular ejection fraction is estimated at 30-35 %. . There seems to moderate global hypokinesis with severe hypokinesis in mid to distal anterior and apical hazel. Right Ventricle Normal right ventricular size and systolic function. Right Atrium Mildly increased right atrial size. Left Atrium Moderately increased left atrial size. Mitral Valve Mitral annular calcification. Mildly thickened mitral valve. Aortic Valve Structurally normal trileaflet aortic valve. Tricuspid Valve Structurally normal tricuspid valve. Pulmonic Valve Pulmonic valve not well visualized. Pericardium No pericardial effusion. Aorta Normal size aortic root and proximal ascending aorta. IVC Dilated IVC. CONCLUSIONS 1. Normal left ventricular cavity size. Moderately decreased left ventricular systolic function. Left ventricular ejection fraction is estimated at 30-35%. . There seems to moderate global hypokinesis with severe hypokinesis in mid to distal anterior and apical hazel. 2. No significant change when compared to study dated 01/30/22. Emilia Hernandez MD (Electronically Signed) Final Date: 01 May 2022 19:03 S
--- NOTE | 2022-04-24 11:45 | USCV_ITS ---
Dennis Mcintosh Age: 76 Gender: M : 1945 Exam Date: 04/24/2022 12:28 Ordering Phys: Emilia Hernandez MD ([email or web address]) Technologist: [employer]frain [employer] Exam Location: [facility] [place] Indication: Claudication RIGHT LEFT Brachial 120.00 mmHg Brachial 129.00 mmHg Pressure (mmHg) Waveform Pressure (mmHg) Waveform 66.00 ENVIRONMENTAL LEAD 80.00 64.00 DPA 80.00 0.51 Ankle/Brachial Index 0.62 0.46 Post-Exercise Ankle Brachial Index 0.55 49.00 Pre-Exercise Toe Pressure 60.00 0.38 Pre-Exercise Toe/Brachial Index 0.47 FINDINGS Resting AGA of 0.51 on the right and 0.62 on the left Post exercise AGA of 0.46 on the right and 0.55 on the left Resting TBI of 0.38 on the right and 0.47 on the left CONCLUSIONS 1. Abnormal resting AGA , TBI and post exercise AGA on the right side suggesting severe peripheral artery disease. 2. Abnormal resting AGA and TBI on the left side suggesting moderate peripheral artery disease. Dr Bernardino Saab MD [facility] (Electronically Signed) Final Date: 24 April 2022 19:05 S
== END 2022-04-24 10:42 | disposition home or self-care (01) ==
PROVIDERS: PCP Family Medicine; Visit Provider Internal Medicine Cardiovascular Disease
DX: I73.9 Peripheral vascular disease, unspecified (principal); I50.20 Unspecified systolic (congestive) heart failure; I25.10 Atherosclerotic heart disease of native coronary artery without angina pectoris; I34.0 Nonrheumatic mitral (valve) insufficiency
CPT/HCPCS: 93308; 93922

== ENCOUNTER 2022-05-08 06:38 | Outpatient (CLI) | payer MEDICARE, MEDICAID, SELFPAY ==
--- NOTE | 2022-05-08 | ECG_ITS ---
[facility] Test Date: 2022-05-08 Pat Name: Dennis Mcintosh Department: Room: Gender: Male Patient Assessment Coordinator: Letty Jackson : 1945 Requested By: Emilia Hernandez Order Number: [id number] Kathi MD: Bernardino Saab M.D. Interpretive Statements NAME OF STUDY: LEXISCAN SESTAMIBI STRESS TEST INDICATION: Chest Pain; Shortness of Breath, PROCEDURE: At the baseline, the EKG revealed atrial fibrillation with a ventricular response rate of 94 bpm. Diffuse nonspecific T wave changes. Some nonspecific ST changes. The baseline heart was 94 bpm with a blood pressue of 108/70 mm of Hg Lexiscan was infused over a period of 20 seconds. A total of 0.4 milligrams of Lexiscan was infused. The stress phase was continued for a total of 5 minutes. Heart rate at the end of the stress phase was 104 bpm with a blood pressure 90/55 mm of Hg. The EKG at the peak infusion revealed some nonspecific ST-T changes. Sestamibi was injected 20 seconds after the Lexiscan infusion. Heart rate at the end of the recovery phase was 98 bpm with a blood pressure of 103/63 mm of Hg. CONCLUSION: 1. Nonspecific ST-T changes with the LexiScan infusion 2. No LexiScan induced chest pain or cardiac arrhythmia 3. Normal blood pressure and heart rate response 4. Sestamibi/sestamibi perfusion scan pending; see separate report. Electronically Signed On 05-12-2022 16:08:23 STEAM BOX HAND by Bernardino Saab M.D. [email or web address]
[2022-05-08 06:56] VITALS: BMI 26.6
--- NOTE | 2022-05-08 06:57 | NMCV_ITS ---
NM bessy perf SPECT r/s* [id number] Dennis Mcintosh Age: 76 Gender: M : 1945 Exam Date: 05/08/2022 07:55 Ordering Phys: Emilia Hernandez MD ([email or web address]) Technologist: SERENITY Fam Exam Location: [facility] Indications: SHORTNESS OF BREATH; CHEST PAIN STRESS TEST Please see separate stress test report in [facility] for full findings IMAGE PROTOCOL Rest/Stress 1 Lexiscan Day Radiopharmaceutical Dose (mCi) Administration Site Administered by Rest: Tc-99m 10.9 IV SERENITY Lackey Sestamibi Stress:Tc-99m 32.4 IV SERENITY Lackey Sestamibi Rest: 08-May-2022 60 Discovery 630 Stress: 08-May-2022 30 Discovery 630 0.4mg Lexiscan. Supine position only as patient was unable to lay prone. SPECT RESULTS Technical Quality: Excellent Raw Data Analysis: Normal Image Corrections: No attenuation or motion correction applied Summed Stress Score: 18 Summed Rest Score: 21 Summed Difference Score: 0 PERFUSION FINDINGS Moderate to severely decreased tracer uptake in the mid and apical anterior, mid anterolateral, and all the apical segments. No significant reversibility was noted in these regions. FUNCTIONAL RESULTS (calculated via Gated SPECT) Stress Image LV EF (%): 34 Stress EDV (mL):94 TID: 1.18 Stress ESV (mL):62 FUNCTIONAL FINDINGS: Segmental wall motion analysis revealing severe diffuse hypokinesia of the septum, anterior wall and LV apex IMPRESSIONS 1. Myocardial perfusion imaging revealing moderate area of persistent decreased tracer uptake in the anterior, anteroseptal and apical regions suggesting myocardial scarring predominantly in the distribution of the left anterior sending artery and circumflex artery with some involvement of the distal right coronary artery as well. 2. Diminished LV ejection fraction of 34%. 3. Wall motion abnormalities as mentioned above. 4. Mildly dilated LV cavity with an end-systolic volume of 62 ml. 5. Slightly elevated transient ischemic dilatation ratio may suggest endocardial ischemia. The positive predictive value of this finding is limited. Possibly no significant coronary ischemia based on the above findings. Clinical correlation is recommended Dr Bernardino Saab MD [facility] (Electronically Signed) Final Date: 08 May 2022 14:07 S
[2022-05-08] MEDS: regadenoson 0.4 Mg/5 ml Syringe IVP (08:23)
[2022-05-08 08:37] VITALS: BP 103/63; PULSE 98
== END 2022-05-08 06:39 | disposition home or self-care (01) ==
LOC: CDL 06:41
PROVIDERS: PCP Family Medicine; Visit Provider Internal Medicine Cardiovascular Disease
DX: R07.9 Chest pain, unspecified (principal); R06.02 Shortness of breath; I25.10 Atherosclerotic heart disease of native coronary artery without angina pectoris
CPT/HCPCS: 36415; 78452; 93017; 96374; A9500; J2785

== ENCOUNTER → 2022-05-14 09:41 | Outpatient (BNVA) | payer MEDICARE, MEDICAID, SELFPAY | PROVIDERS: PCP Family Medicine; Visit Provider Nurse Practitioner Family | DX: I73.9 Peripheral vascular disease, unspecified (principal); I11.0 Hypertensive heart disease with heart failure; I50.20 Unspecified systolic (congestive) heart failure; F17.210 Nicotine dependence, cigarettes, uncomplicated; Z79.01 Long term (current) use of anticoagulants; Z79.82 Long term (current) use of aspirin | CPT/HCPCS: 99213 ==

== ENCOUNTER 2022-05-23 09:43 | Outpatient (CLI) | payer MEDICARE, MEDICAID, SELFPAY ==
--- NOTE | 2022-05-23 10:01 | CT_ITS ---
WS: [id number] LDCT LUNG CANCER SCREENING HISTORY: NICOTINE DEPENDENCE, CIGARETTES TECHNIQUE: Axial imaging performed from the apices to 1 cm below the costophrenic angles. Coronal and sagittal reformats are submitted with axial MIP series. All CT scans at [facility] use at least one of these dose optimization techniques: automated exposure control; mA and/or kV adjustment per patient size (includes targeted exams where dose is matched to clinical indication); or iterativ e reconstruction. DLP: 76.41 mGy.cm DIvol: Mean CTDIvol: 1.60 (mGy) COMPARISON: 01/30/2022, 04/25/2021 Diagnostic quality: Satisfactory Lungs: Hyperexpanded lungs with emphysema. No mass or nodule. No pneumonia. No endobronchial lesions. Heart: Mild cardiomegaly. No pericardial effusion. Moderate coronary artery atherosclerosis.. Other findings: Mild atherosclerosis aorta. No adenopathy. LEFT adrenal adenoma 14 mm. T12 compressio n fracture 30%. CT/CT lung screening [id number] IMPRESSION: LUNG-RADS: 1-Negative FOLLOW UP: 12 Month: Continue annual screening with LDCT OTHER FINDINGS (S MODIFIER): None.
== END 2022-05-23 09:44 | disposition home or self-care (01) ==
LOC: RAD 09:50
PROVIDERS: PCP Family Medicine; Visit Provider Family Medicine
DX: Z12.2 Encounter for screening for malignant neoplasm of respiratory organs (principal); F17.210 Nicotine dependence, cigarettes, uncomplicated
CPT/HCPCS: 71271

== ENCOUNTER → 2022-06-05 10:48 | Outpatient (BNVA) | payer MEDICARE, MEDICAID, SELFPAY | PROVIDERS: PCP Family Medicine; Visit Provider Podiatrist Foot & Ankle Surgery | DX: I73.9 Peripheral vascular disease, unspecified (principal); B35.1 Tinea unguium | CPT/HCPCS: 11721; 99203 ==

== ENCOUNTER → 2022-10-19 09:55 | Outpatient (BNVA) | payer MEDICARE, MEDICAID, SELFPAY | PROVIDERS: PCP Family Medicine; Visit Provider Family Medicine Adult Medicine | DX: N18.30 Chronic kidney disease, stage 3 unspecified (principal); I10 Essential (primary) hypertension; I50.9 Heart failure, unspecified; R73.03 Prediabetes; Z85.46 Personal history of malignant neoplasm of prostate; I48.91 Unspecified atrial fibrillation; M54.9 Dorsalgia, unspecified; G89.29 Other chronic pain; M25.559 Pain in unspecified hip | CPT/HCPCS: 80053; 83036; 84443; 85025; G0103 ==

== ENCOUNTER 2023-03-30 18:14 | Emergency (ER) | payer MEDICARE, MEDICAID, SELFPAY ==
[2023-03-30 18:19] VITALS: BP 120/69; PULSE 110; RESP 18; TEMP 36.8; O2SAT 95; BMI 26.6
--- NOTE | 2023-03-30 18:19 | XRR_ITS ---
PROCEDURE INFORMATION: Exam: XR Chest Exam date and time: 03/30/2023 6:22 PM Age: 77 years old Clinical indication: Pain; Chest pressure; Additional info: Cp TECHNIQUE: Imaging protocol: Radiologic exam of the chest. Views: 1 view. COMPARISON: CT lung screening [id number] 05/23/2022 10:09 AM FINDINGS: Lungs: No focal consolidation. Pleural spaces: No evidence of pneumothorax or pleural effusion. Heart/Mediastinum: Cardiomediastinal silhouette is within normal limits. Bones/joints: No evidence of acute osseous abnormality. XR/XR chest 1V portable [id number] IMPRESSION: 1. No acute cardiopulmonary abnormality.
--- NOTE | 2023-03-30 18:25 | ECG_ITS ---
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 Measurements Intervals [place] Rate: 108 P: 0 [place]: 0 QRS: -42 QRSD: 84 T: 89 QT: 345 QTc: 463 Interpretive Statements ATRIAL FIBRILLATION WITH RAPID VENTRICULAR RESPONSE, multiple PVCs LEFT AXIS DEVIATION [QRS AXIS < -30] POSSIBLE RIGHT VENTRICULAR CONDUCTION DELAY [RSR (QR) IN V1/V2] ANTEROSEPTAL MYOCARDIAL INFARCTION , PROBABLY OLD [40+ ms Q WAVE IN V1-V4] Compared to ECG 01/30/2022 22:46:10 Left-axis deviation now present Left anterior fascicular block no longer present Myocardial infarct finding still present Electronically Signed On 03-31-2023 8:31:47 WEALTH MANAGEMENT CONSULTANT by Bo Bernard M.D. [id number] f
[2023-03-30 18:27] VITALS: BP 120/69; PULSE 88; RESP 18; O2SAT 95
--- NOTE | 2023-03-30 18:30 | ED_ITS ---
HPI - Chest Pain 2 General: Chief Complaint: Chest Pain Stated Complaint: CHEST PAIN Time Seen by Provider: 03/30/23 18:18 Source: patient and EMS Mode of arrival: EMS Limitations: no limitations History of Present Illness: 77-year-old male states he has a long hi story of A-fib he states he is having palpitations today along with some chest pain that was sharp in nature. He received Cardizem and route and states his symptoms since resolved his heart rate now is in the 80s. He denies any shortness of breath denies any cough denies any fever denies any vomiting or diarrhea Associated symptoms: Reports palpitations; Deny abdominal pain, dyspnea, fever(s), nausea or vomiting Review of Systems 2 Const: Denies: fever(s), chills, body aches or change in appetite ENMT: Denies: throat pain or dental pain Card: Reports: chest pain and palpitations Resp: Denies: dyspnea GI: Denies: abdominal pain, nausea, vomiting or diarrhea : Denies: dysuria Musc: Denies: neck pain or back pain Skin/Breast: Denies: rash Neuro: Denies: headache(s) PFSH ED 2 PFSH: Medical History Chronic hip pain CKD (chronic kidney disease), stage III Pre-diabetes Fracture of left ulna PAD (peripheral artery disease) Right inguinal hernia Colon polyps 06/2021 Dr. Doss colonoscopy Smoker -Chronic smoker; 1 PPD x > 40 yrs Chronic back pain COPD (chronic obstructive pulmonary disease) -has known hx of COPD, not oxygen dependent at baseline, A-fib History of prostate cancer treated with radiation Surgical History Status post colonoscopy with polypectomy (02/09/20) 06/2021 - colon polyps, diverticulosis H/O esophagogastroduodenoscopy (02/09/20) Family History Father CAD (coronary artery disease) Mother Diabetes Social History Smoking and tobacco/nicotine status: current every day tobacco/nicotine user cigarettes Packs smoked per day: 1.5 Years cigarettes smoked: 40 Alcohol intake: former Former alcohol use details: quit 6-7 yrs ago Substance/Drug Use: current Substance/Drug use frequency: Special occassions/opportunity only Lives independently: Yes Physical Exam 2 Const: COMMON NORMALS: no acute distress, patient oriented x3 and healthy appearing HENMT: COMMON NORMALS: normocephalic and atraumatic HEAD & SCALP: n ormocephalic and atraumatic Neck/C-Spine: COMMON NORMALS: full ROM and supple Chest: COMMONS NORMALS: normal inspection of the chest and normal palpation of entire chest wall Resp: COMMON NORMALS: normal respiratory effort, No retractions, No use of accessory muscles and clear to auscultation bilaterally AUSCULTATION: clear to auscultation bilaterally Cardio: COMMON NORMALS: regular rate and No murmurs present (Cardio) RATE: regular rate RHYTHM: abnormal rhythm irregularly irregular GI: COMMON NORMALS: Normal to inspection, nondistended, normoactive bowel sounds present, Soft to palpation, non-tender and no masses PALPATION: Yes Soft to palpation Extremity: COMMON NORMALS: normal to inspection and full ROM Neuro: COMMON NORMALS: patient oriented x3, moves all extremities and no focal motor deficits Psych: COMMON NORMALS: mental status grossly normal, Normal thought process present and cooperative THOUGHT PROCESS: Normal thought process present Skin: COMMON NORMALS: no rashes or lesions noted and no wounds GENERAL SKIN EXAM: no rashes or lesions noted Course 2 Vital Signs: Vital signs: Vital Signs Temperature 98.2 F 03/30/23 18:19 Pulse Rate 89 03/30/23 20:40 Respiratory Rate 23 H 03/30/23 19:32 Blood Pressure 110/93 03/30/23 20:40 Pulse Oximetry 93 03/30/23 20:40 Oxygen Delivery Me thod Room Air 03/30/23 20:40 MDM - Chest Pain Medical Decision Making Patient presents here with chest pain along with A-fib since resolved his heart rate here is improved his troponins are negative no signs of acute coronary syndrome he is stable for discharge at this time. Medical Records I reviewed the patient's medical records. Lab Data I reviewed the patient's lab results. 03/30/23 19:40 03/30/23 19:40 Radiology Impressions Chest X-Ray 03/30/23 18:19 IMPRESSION: 1. No acute cardiopulmonary abnormality. Laboratory Results WBC 7.26 10^3/uL (3.29-11.43) 03/30/23 19:40 RBC 4.62 10^6/uL (3.85-5.65) 03/30/23 19:40 Hgb 15.20 g/dL (11.27-16.99) 03/30/23 19:40 Hct 44.7 % (37-53) 03/30/23 19:40 MCV 96.8 fl (82-101) 03/30/23 19:40 MCH 32.9 pg (27-33) 03/30/23 19:40 MCHC 34.0 g/dL (30-55) 03/30/23 19:40 RDW 13.6 % (12.1-15.1) 03/30/23 19:40 Plt Count 283 10^3/cmm (157-399) 03/30/23 19:40 MPV 9.5 fL (7.4-10.4) 03/30/23 19:40 Neut % (Auto) 63.1 % 03/30/23 19:40 Lymph % (Auto) 28.4 % 03/30/23 19:40 [place] % (Auto) 7.0 % 03/30/23 19:40 Eos % (Auto) 0.7 % 03/30/23 19:40 Baso % (Auto) 0.7 % 03/30/23 19:40 Neut # (Auto) 4.58 10^3/uL (1.8-7.7) 03/30/23 19:40 Lymph # (Auto) 2.1 10^3/uL (0.8-4.8) 03/30/23 19:40 [place] # (Auto) 0.5 10^3/uL (0.2-0.9) 03/30/23 19:40 Eos # (Auto) 0.1 10^3/uL (0.0-0.8) 03/30/23 19:40 Baso # (Auto) 0.1 10^3/uL (0.0-0.1) 03/30/23 19:40 Nucleated RBC % (auto) 0 % 03/30/23 19:40 Nucleated RBCs # 0.0 /100WBC 03/30/23 19:40 PT 14.80 SECONDS (12.1-14.9) 03/30/23 19:40 INR 1.12 (0.8-1.2) 03/30/23 19:40 APTT 28.4 SECONDS (23.9-36.7) 03/30/23 19:40 Sodium 141 mmol/L (136-145) 03/30/23 19:40 Potassium 3.8 mmol/L (3.5-5.1) 03/30/23 19:40 Chloride 101 mmol/L (98-107) 03/30/23 19:40 Carbon Dioxide 28 mmol/L (22-29) 03/30/23 19:40 Anion Gap 15.8 (5-19) 03/30/23 19:40 BUN 13 mg/dL (8-23) 03/30/23 19:40 Creatinine 1.3 mg/dL (0.7-1.2) H 03/30/23 19:40 GFR Calculation Not Reportable 03/30/23 19:40 Glucose 109 mg/dL (65-115) 03/30/23 19:40 Calculated Osmolality 293 mOsm/kg (285-295) 03/30/23 19:40 Calcium 9.3 mg/dL (8.5-10.5) 03/30/23 19:40 Total Bilirubin 0.5 mg/dL (0.15-1.2) 03/30/23 19:40 AST 14 U/L (0-40) 03/30/23 19:40 ALT 7 U/L (0-41) 03/30/23 19:40 Alkaline Phosphatase 88 U/L (40-130) 03/30/23 19:40 Troponin T Baseline 20 ng/L (0-15) H 03/30/23 19:40 Troponin T 120 Minute 20.05 ng/L (0-15) H 03/30/23 21:59 Delta Troponin T 0.05 ABS# (0-10) 03/30/23 21:59 NT-Pro-B Natriuret Pep 3019 pg/mL (0-450) H 03/30/23 19:40 Total Protein 6.3 g/dL (6.6-8.7) L 03/30/23 19:40 Albumin 3.8 g/dL (3.5-5.2) 03/30/23 19:40 Globulin 2.5 g/dL (1.3-4.6) 03/30/23 19:40 All radiology interpretation(s) finalized by discharge EKG Data EKG 1: I personally reviewed and interpreted this EKG as follows: EKG interpretation date: 03/30/23 EKG interpretation time: 18:25 Interpretation: afib rvr hr [address] or t wave abnormalities qrs 84 qtc 408 EKG 2: I personally reviewed and interpreted this EKG as follows: EKG interpretation date: 03/30/23 EKG interpretation time: 20:30 Interpretation: afib hr [address] or t wave abnormalities qrs 96 qtc 418 Discharge Plan Discharge Patient Disposition: Home Clinical Impression: Chest pain, A-fib Condition: Stable Prescriptions: No Action ascorbate calcium (vitamin C) 500 mg tablet 2 g PO DAILY aspirin [Aspir-81] 81 mg tablet,delayed release (DR/EC) 81 mg PO DAILY omega-3 fatty acids 1,000 mg capsule 2,000 mg PO DAILY Spiriva with HandiHaler 18 mcg capsule, w/inhalation device 1 cap inhalation DAILY Qty: 30 0RF Rx Instructions: Must obtain further refills from primary care physician metoprolol succinate 25 mg tablet extended release 24 hr 12.5 mg PO BID 30 Days Qty: 60 5RF Eliquis 5 mg tablet 5 mg PO BID Qty: 60 3RF naproxen 500 mg tablet,delayed release (DR/EC) 500 mg PO BID PRN (Reason: pain) Qty: 60 3RF gabapentin 100 mg capsule 100 mg PO TID PRN (Reason: pain) Qty: 90 3RF omeprazole 20 mg capsule,delayed release(DR/EC) 20 mg PO DAILY Qty: 90 3RF atorvastatin 20 mg tablet 20 mg PO DAILY 90 Days Qty: 90 1RF potassium chloride 10 mEq tablet extended release 10 meq PO DAILY Qty: 90 0RF Rx Instructions: patient needs appointment for further refills furosemide 40 mg tablet 40 mg PO DAILY Qty: 90 0RF Rx Instructions: patient needs appointment for further refills cholecalciferol (vitamin D3) [Vitamin D3] 125 mcg (5,000 unit) Tablet 125 mcg PO DAILY ProAir RespiClick 90 mcg/actuation aerosol powdr breath activated 2 inh INHALATION Q6H PRN (Reason: Shortness Of Breath) 30 Days Qty: 1 1RF Discharge Orders: Discharge ED (Routine); Ordered 03/30/23 Ordered By: Tish Andrea Referrals: Lico Pisano MD [Referring] - 1-3 days Discharge Diet: Advance as tolerated Discharge Activity: Resume usual activity Patient Instructions: Chest Pain (ED) Coding Level of Care Code ED Roller Maker for Vida Barr
[2023-03-30 19:32] VITALS: BP 121/66; PULSE 81; RESP 23; O2SAT 95
[2023-03-30 19:54] LABS: Basophils # 0.1 10^3/uL (0.0-0.1); Basophils % 0.7 %; Eosinophils # 0.1 10^3/uL (0.0-0.8); Eosinophils % 0.7 %; Hematocrit 44.7 % (37-53); Lymphocytes # 2.1 10^3/uL (0.8-4.8); Lymphocytes % 28.4 %; Mean Corpuscular Hemoglobin 32.9 pg (27-33); Mean Corpuscular Volume 96.8 fl (82-101); Mean Platelet Volume 9.5 fL (7.4-10.4); Monocytes # 0.5 10^3/uL (0.2-0.9); Neutrophils # 4.58 10^3/uL (1.8-7.7); Neutrophils % 63.1 %; Nucleated Red Blood Cells % 0 %; Platelet Count 283 10^3/cmm (157-399); Red Blood Count 4.62 10^6/uL (3.85-5.65); Red Cell Distribution Width 13.6 % (12.1-15.1); White Blood Count 7.26 10^3/uL (3.29-11.43)
[2023-03-30 20:05] LABS: INR 1.12 (0.8-1.2)
[2023-03-30 20:06] LABS: Partial Thromboplastin Time 28.4 SECONDS (23.9-36.7)
[2023-03-30 20:12] LABS: Troponin(5th) Baseline 20 ng/L (0-15)
[2023-03-30 20:27] VITALS: BP 110/93; PULSE 120; O2SAT 94
[2023-03-30 20:29] LABS: Alanine Aminotransferase 7 U/L (0-41); Albumin Level 3.8 g/dL (3.5-5.2); Alkaline Phosphatase 88 U/L (40-130); Anion Gap 15.8 (5-19); Aspartate Amino Transferase 14 U/L (0-40); Blood Urea Nitrogen 13 mg/dL (8-23); Calcium 9.3 mg/dL (8.5-10.5); Carbon Dioxide 28 mmol/L (22-29); Chloride 101 mmol/L (98-107); Globulin 2.5 g/dL (1.3-4.6); Glucose 109 mg/dL (65-115); NT Pro B Type Natriuretic Pept 3019 pg/mL (0-450); Osmolality Calculated 293 mOsm/kg (285-295); Potassium 3.8 mmol/L (3.5-5.1); Sodium 141 mmol/L (136-145); Total Bilirubin 0.5 mg/dL (0.15-1.2); Total Protein 6.3 g/dL (6.6-8.7)
--- NOTE | 2023-03-30 20:30 | ECG_ITS ---
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 Measurements Intervals [place] Rate: 91 P: 0 CT: 0 QRS: 26 QRSD: 96 T: 86 QT: 370 QTc: 455 Interpretive Statements ATRIAL FIBRILLATION INDETERMINATE AXIS INCOMPLETE RIGHT BUNDLE BRANCH BLOCK [90+ ms QRS DURATION, TERMINAL R IN V1/V2, 40+ ms S IN I/aVL/V4/V5/V6] ANTERIOR MYOCARDIAL INFARCTION , PROBABLY OLD [40+ ms Q WAVE AND/OR ST/T ABNORMALITY IN V3/V4] Compared to ECG 03/30/2023 18:25:45 Indeterminate axis now present Incomplete right bundle-branch block now present Left-axis deviation no longer present Myocardial infarct finding still present Electronically Signed On 03-31-2023 8:37:59 LOAN PROCESSING SUPERVISOR by Bo Bernard M.D. [id number]
[2023-03-30 20:40] VITALS: BP 110/93; PULSE 89; O2SAT 93
--- NOTE | 2023-03-30 21:00 | PC.NURSE ---
insurance writer gave report to jono stone at 2058, pt stable with no current complaints or concerns.
[2023-03-30 22:25] LABS: Troponin 5 2HR 20.05 ng/L (0-15); Troponin 5 2HR Delta 0.05 ABS# (0-10)
== END 2023-03-30 23:20 | disposition home or self-care (01) ==
PROVIDERS: Emergency Provider Emergency Medicine; PCP Family Medicine Adult Medicine
DX: R07.9 Chest pain, unspecified (principal); I48.91 Unspecified atrial fibrillation; Z79.82 Long term (current) use of aspirin; Z79.01 Long term (current) use of anticoagulants; N18.30 Chronic kidney disease, stage 3 unspecified; J44.9 Chronic obstructive pulmonary disease, unspecified; Z85.46 Personal history of malignant neoplasm of prostate; Z92.3 Personal history of irradiation; Z72.0 Tobacco use
CPT/HCPCS: 36415; 71045; 80053; 83880; 84484; 85025; 85610; 85730; 93005; 99285

== ENCOUNTER → 2024-06-30 14:53 | Outpatient (BNVA) | payer MEDICARE, MEDICAID, SELFPAY | PROVIDERS: PCP Family Medicine; Visit Provider Family Medicine | DX: I15.2 Hypertension secondary to endocrine disorders (principal); Z13.6 Encounter for screening for cardiovascular disorders; R53.83 Other fatigue; R06.02 Shortness of breath; Z85.46 Personal history of malignant neoplasm of prostate; I50.9 Heart failure, unspecified | CPT/HCPCS: 80053; 80061; 83880; 84153; 84443; 85025 ==

== ENCOUNTER 2024-11-09 06:30 | Outpatient (RCR) | payer MEDICARE, MEDICAID, SELFPAY | END 2024-12-08 23:59 | disposition home or self-care (01) | LOC: SOT 06:30 | PROVIDERS: PCP Family Medicine; Visit Provider Family Medicine | DX: G89.29 Other chronic pain (principal) | CPT/HCPCS: 97167 ==

== ENCOUNTER 2025-02-02 07:35 | Emergency (ER) | payer MEDICARE, MEDICAID, SELFPAY ==
[2025-02-02 07:39] VITALS: BP 128/108; PULSE 103; RESP 22; TEMP 36.9; O2SAT 94
--- NOTE | 2025-02-02 07:40 | ECG_ITS ---
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 Measurements Intervals [place] Rate: 103 P: 0 [place]: 0 QRS: 46 QRSD: 85 T: 120 QT: 330 QTc: 433 Interpretive Statements ATRIAL FIBRILLATION WITH RAPID VENTRICULAR RESPONSE INDETERMINATE AXIS ANTERIOR MYOCARDIAL INFARCTION , PROBABLY OLD [40+ ms Q WAVE AND/OR ST/T ABNORMALITY IN V3/V4] Compared to ECG 03/30/2023 20:30:16 Myocardial infarct finding still present Electronically Signed On 02-02-2025 10:03:57 CIVIL PREPAREDNESS OFFICER by Hortencia Torres M.D. [email or web address] [id number]
--- NOTE | 2025-02-02 07:41 | XRR_ITS ---
PROCEDURE INFORMATION: Exam: XR Chest Exam date and time: 02/02/2025 7:51 AM Age: 79 years old Clinical indication: Shortness of breath TECHNIQUE: Imaging protocol: Radiologic exam of the chest. Views: 1 view. COMPARISON: CR XR chest 1V portable [id number] 03/30/2023 6:22 PM FINDINGS: Lungs: Mild interstitial prominence. Pleural spaces: Unremarkable. No pleural effusion. No pneumothorax. Heart/Mediastinum: See Vasculature finding. Vasculature: Borderline cardiomegaly and uncoiling of the thoracic aorta. Bones/joints: Unremarkable. XR/XR chest 1V portable [id number] IMPRESSION: No acute findings.
--- NOTE | 2025-02-02 07:42 | ED_ITS ---
HPI - SOB/Dyspnea 2 General: Chief Complaint: Shortness of Breath/Dyspnea Stated Complaint: SOB Time Seen by Provider: 02/02/25 07:38 History of Present Illness: HPI Narrative: 79-year-old man with a history of COPD, atrial fibrillation, chronic anticoagulation on Eliquis, continued tobacco dependence, chronic kidney disease, hypertension, severe mitral regurgitation, congestive heart failure and peripheral artery disease who presents to the emergency room with worsening shortness of breath. He said this started last night. On presentation he has using some accessory muscles, tachypneic and with some increased work of breathing. He says he is not on oxygen at home any longer but he has been in the past. He says he is continue to smoke. He does not have any lower extremity edema. No chest pain. No abdominal pain. No nausea or vomiting. No known fevers. Related Data Home Medications ?Medication ?Instructions ?Recorded ?Confirmed aspirin 81 mg tablet,delayed 81 mg PO DAILY 08/28/19 0 11/10/24 release (Aspir-) ascorbate calcium (vitamin C) 500 2 g PO DAILY 2 11/10/24 mg tablet Previous Rx's ?Medication ?Instructions ?Recorded albuterol sulfate 90 mcg/actuation 2 inh inhalation Q6 H PRN Shortness 11/10/24 breath activated powder inhaler Of Breath 90 days #3 e a (ProAir RespiClick) apixaban 5 mg tablet (Eliquis) 5 mg PO BID 90 days #18 0 tabs 11/10/24 atorvastatin 20 mg tablet 20 mg PO DAILY 90 days #90 t abs 11/10/24 budesonide 160 mcg-glycopyr 9 2 inh inhalation BID 90 days #10.7 11/10/24 mcg-formot 4.8 mcg/actuation HFA grams inhaler (Breztri Aerosphere) furosemide 20 mg tablet 20 mg PO DAILY 90 days #90 t abs 11/10/24 metoprolol succinate 25 mg 25 mg PO BID atrial fib 90 days 11/10/24 tablet,extended release 24 hr #180 tabs omeprazole 20 mg capsule,delayed 20 mg PO DAILY #90 ca ps 11/10/24 release potassium chloride 10 mEq 10 meq PO DAILY #90 tabs 05/05 tablet,extended release albuterol sulfate 90 mcg/actuation 2 inh inhalation Q4 H #6.7 grams 02/02/25 aerosol inhaler (Ventolin HFA) doxycycline hyclate 100 mg capsule 100 mg PO BID 7 day s #14 caps 02/02/25 prednisone 20 mg tablet 60 mg (3 x 20 mg) PO DAILY # 20 tabs 02/02/25 Allergies Allergy/AdvReac Type Severity Reaction Status Date / Time No Known Allergies Allergy Verified 11/10/24 13:14 Review of Systems 2 Narrative: Constitutional symptoms: Negative except as documented in HPI. Skin symptoms: Negative except as documented in HPI. Eye symptoms: Negative except as documented in HPI. ENMT symptoms: Negative except as documented in HPI. Respiratory symptoms: Negative except as documented in HPI. Cardiovascular symptoms: Negative except as documented in HPI. Gastrointestinal symptoms: Negative except as documented in HPI. Genitourinary symptoms: Negative except as documented in HPI. Musculoskeletal symptoms: Negative except as documented in HPI. Neurologic symptoms: Negative except as documented in HPI. Psychiatric symptoms: Negative except as documented in HPI. Endocrine symptoms: Negative except as documented in HPI. PFSH ED 2 PFSH: Medical History (Updated 02/02/25 @ 09:45 by Josefina Hernandez MD) Chronic hip pain CKD (chronic kidney disease), stage III Pre-diabetes Fracture of left ulna PAD (peripheral artery disease) Right inguinal hernia Colon polyps 06/2021 Dr. Doss colonoscopy Smoker -Chronic smoker; 1 PPD x > 40 yrs Chronic bilateral low back pain with bilateral sciatica Chronic obstructive pulmonary disease, unspecified COPD type -has known hx of COPD, not oxygen dependent at baseline, Longstanding persistent atrial fibrillation History of prostate cancer treated with radiation Surgical History Status post colonoscopy with polypectomy (02/09/20) 06/2021 - colon polyps, diverticulosis H/O esophagogastroduodenoscopy (02/09/20) Family History Father CAD (coronary artery disease) Mother Diabetes Social History Smoking and tobacco/nicotine status: current every day tobacco/nicotine user cigarettes Packs smoked per day: 1.5 Years cigarettes smoked: 40 Alcohol intake: current Alcohol intake frequency: few times a month Substance/Drug Use: current Substance/Drug use frequency: few times a week Lives independently: Yes Physical Exam 2 Narrative: EXAM NARRATIVE: General: Alert, moderate distress. Skin: Warm, dry. Head: Normocephalic, atraumatic. Neck: Supple, trachea midline. Eye: Extraocular movements are intact. Ears, nose, mouth and throat: Oral mucosa moist. Cardiovascular: Irregularly irregular, Normal peripheral perfusion. Respiratory: coarse, scattered wheeze, moderate increased wob. tachypnea, prolonged expiratory phase. breath sounds are equal, Symmetrical chest wall expansion. Gastrointestinal: Soft, Nontender, Non distended, Musculoskeletal: Normal ROM, no deformity. Neurological: Alert and oriented, No focal neurological deficit observed. Psychiatric: Cooperative, appropriate mood & affect. Course 2 Vital Signs: Vital signs: Vital Signs Temperature 98.4 F 02/02/25 07:39 Pulse Rate 107 H 02/02/25 09:13 Respiratory Rate 16 02/02/25 09:13 Blood Pressure 128/108 02/02/25 08:14 Pulse Oximetry 95 02/02/25 09:13 Oxygen Delivery Me thod Room Air 02/02/25 09:13 MDM - SOB/Dyspnea Medical Decision Making Medical decision making Patient's reason for coming to the emergency room: Shortness of breath. Social determinants: Patient is retired I reviewed the patient's medical record. 79-year-old man with a history of COPD, atrial fibrillation, chronic anticoagulation on Eliquis, continued tobacco dependence, chronic kidney disease, hypertension, severe mitral regurgitation, congestive heart failure and peripheral artery disease I reviewed the patient's current home meds Patient is on Eliquis at home. Prescription monitoring program shows no narcotics in past year. Alternate historians: None Differential diagnosis for patient with shortness of breath includes but is not limited to and based on the above HPI, review of systems and physical exam: Pneumonia. Bronchitis. Asthma or COPD with acute exacerbation. Acute coronary syndrome / GA. Pulmonary embolism. Anxiety. Congestive heart failure. Viral infections including influenza and Covid-19. Atrial fibrillation. Anxiety. Pleural effusion. Pneumothorax. Orders placed to evaluate differential diagnosis based on the above differential, HPI and physical exam EKG: Time 740. Rate 103. Atrial fibrillation with rapid ventricular response, nonspecific ST changes, no ectopy, This was reviewed and interpreted by myself the ER physician at 7:43 AM EKG: Time 934. Rate 108. Atrial fibrillation with rapid ventricular response, nonspecific ST changes, no ectopy, This was reviewed and interpreted by myself the ER physician at 9:38 AM. No change from previous Chest x-ray: No acute process. No infiltrate. No pneumothorax. This was reviewed and interpreted by myself the emergency room physician. I also reviewed the radiology report. Lab Review: Laboratory results were reviewed and interpreted by myself the emergency room physician. No leukocytosis. No anemia. No renal failure. Troponin is negative serially. Flu COVID and RSV are negative. Lactic acid is negative. proBNP is mildly elevated but seems to be about in his baseline. AB.4 with an O2 sat of 92% on room air. No CO2 retention and no hypoxemia. Assessment of risk: Level of risk: High risk patient. Elderly with multiple comorbidities. Hospitalization considerations: I did consider and offer admission. Patient says he wants to try to go home. He is not requiring any oxygen. He is a little tachycardic but this is secondary to breathing treatments likely. No signs of heart failure Reexamination: Still with some wheeze but no increased work of breathing this is much improved over when he got here. Discussed admission and he wants to go home Assessment and plan: COPD exacerbation A-fib with RVR ? Solu-Medrol, multiple updrafts. Increased work of breathing has improved ?Bolus of amiodarone prior to discharge - Discharged home - Discussed plan with patient. Answered any questions. - Evaluation and treatment of this problem were appropriate in the emergency setting. Lab Data 02/02/25 07:52 02/02/25 07:52 Labs/Radiology: Radiology Impressions Chest X-Ray 02/02/25 07:41 IMPRESSION: No acute findings. Laboratory Results WBC 10.56 10^3/uL (3.29-11.43) 02/02/25 07:52 RBC 4.15 10^6/uL (3.85-5.65) 02/02/25 07:52 Hgb 13.90 g/dL (11.27-16.99) 02/02/25 07:52 Hct 41.5 % (37-53) 02/02/25 07:52 MCV 100.0 fl (82-101) 02/02/25 07:52 MCH 33.5 pg (27-33) H 02/02/25 07:52 MCHC 33.5 g/dL (30-55) 02/02/25 07:52 RDW 13.1 % (12.1-15.1) 02/02/25 07:52 Plt Count 291 10^3/cmm (157-399) 02/02/25 07:52 MPV 9.8 fL (7.4-10.4) 02/02/25 07:52 Neut % (Auto) 71.8 % 02/02/25 07:52 Lymph % (Auto) 21.1 % 02/02/25 07:52 [place] % (Auto) 5.4 % 02/02/25 07:52 Eos % (Auto) 0.9 % 02/02/25 07:52 Baso % (Auto) 0.5 % 02/02/25 07:52 Neut # (Auto) 7.58 10^3/uL (1.8-7.7) 02/02/25 07:52 Lymph # (Auto) 2.2 10^3/uL (0.8-4.8) 02/02/25 07:52 [place] # (Auto) 0.6 10^3/uL (0.2-0.9) 02/02/25 07:52 Eos # (Auto) 0.1 10^3/uL (0.0-0.8) 02/02/25 07:52 Baso # (Auto) 0.1 10^3/uL (0.0-0.1) 02/02/25 07:52 Nucleated RBC % (auto) 0 % 02/02/25 07:52 Nucleated RBCs # 0.0 /100WBC 02/02/25 07:52 Specimen Type Arterial 02/02/25 07:58 Sample Site Radial, right 02/02/25 07:58 ABG pH 7.43 (7.35-7.45) 02/02/25 07:58 ABG pCO2 38.4 mmHg (35-45) 02/02/25 07:58 ABG pO2 68.9 mmHg (80.0-100.0) L 02/02/25 07:58 ABG PO2/FiO2 Ratio 328 02/02/25 07:58 ABG HCO3 25.7 mmol/L (22-26) 02/02/25 07:58 ABG O2 Saturation 95.1 02/02/25 07:58 ABG Base Excess 1.5 mmol/L (-2.0-2.0) 02/02/25 07:58 [place] Test Pos 02/02/25 07:58 A-a O2 Gradient 4.2 mmHg (5-10) L 02/02/25 07:58 Hematocrit 42.0 % (42-52) 02/02/25 07:58 Hgb O2 Saturation 92.2 % (95-100) L 02/02/25 07:58 Carboxyhemoglobin 2.9 %THgb (0.4-20.1) 02/02/25 07:58 Methemoglobin 0.1 % (0.4-1.5) L 02/02/25 07:58 Total Hemoglobin 13.7 g/dL (14-18) L 02/02/25 07:58 Sodium 140.0 mmol/L (131-143) 02/02/25 07:58 Potassium 3.8 mmol/L (3.5-5.0) 02/02/25 07:58 Glucose 100.0 mg/dL (70-115) 02/02/25 07:58 Ionized Calcium 1.2 mmol/L (1.1-1.4) 02/02/25 07:58 O2 Delivery Device Room air 02/02/25 07:58 FiO2 21.0 % 02/02/25 07:58 Stopper Maker Helper ID Amh 02/02/25 07:58 Sodium 140 mmol/L (136-145) 02/02/25 07:52 Potassium 4.1 mmol/L (3.5-5.1) 02/02/25 07:52 Chloride 103 mmol/L (98-107) 02/02/25 07:52 Carbon Dioxide 25 mmol/L (22-29) 02/02/25 07:52 Anion Gap 16.1 (5-19) 02/02/25 07:52 BUN 11 mg/dL (8-23) 02/02/25 07:52 Creatinine 0.9 mg/dL (0.7-1.2) 02/02/25 07:52 GFR Calculation Not Reportable 02/02/25 07:52 Glucose 103 mg/dL (65-115) 02/02/25 07:52 Calculated Osmolality 290 mOsm/kg (285-295) 02/02/25 07:52 Lactic Acid 1.3 mmol/L (0.5-2.2) 02/02/25 07:52 Calcium 9.2 mg/dL (8.5-10.5) 02/02/25 07:52 Total Bilirubin 1.0 mg/dL (0.15-1.2) 02/02/25 07:52 AST 22 U/L (0-40) 02/02/25 07:52 ALT 15 U/L (0-41) 02/02/25 07:52 Alkaline Phosphatase 102 U/L (40-130) 02/02/25 07:52 Troponin T Baseline 19 ng/L (0-15) H 02/02/25 07:52 Troponin T 120 Minute 16.72 ng/L (0-15) H 02/02/25 09:06 Delta Troponin T -2.28 ABS# (0-10) L 02/02/25 09:06 C-Reactive Protein 5.0 mg/L (0.0-4.9) H 02/02/25 07:52 NT-Pro-B Natriuret Pep 6560 pg/mL (0-450) H 02/02/25 07:52 Total Protein 6.8 g/dL (6.6-8.7) 02/02/25 07:52 Albumin 4.0 g/dL (3.5-5.2) 02/02/25 07:52 Globulin 2.8 g/dL (1.3-4.6) 02/02/25 07:52 Influenza A (PCR) Negative (Negative) 02/02/25 07:52 Influenza Type B (PCR) Negative (Negative) 02/02/25 07:52 RSV (PCR) Negative (Negative) 02/02/25 07:52 SARS-CoV-2 (PCR) Negative (Negative) 02/02/25 07:52 All radiology interpretation(s) finalized by discharge Discharge Plan Discharge Patient Disposition: Home Clinical Impression: Acute exacerbation of chronic obstructive airways disease Condition: Stable Prescriptions: New doxycycline hyclate 100 mg capsule 100 mg PO BID 7 Days Qty: 14 0RF prednisone 20 mg tablet 60 mg PO DAILY Qty: 20 0RF Rx Instructions: 3 tabs (60 mg) x 3 days. 2 tabs (40 mg) x 3 days. 1 tab (20 mg) x 3 days. 1/2 tab (10 mg) x 4 days albuterol sulfate [Ventolin HFA] 90 mcg/actuation HFA aerosol inhaler 2 inh inhalation Q4H Qty: 6.7 0RF Rx Instructions: Please schedule every 4 hours for the next 3 days with up to every every 2 as needed. Please provide patient with a spacer/AeroChamber No Action ascorbate calcium (vitamin C) 500 mg tablet 2 g PO DAILY aspirin [Aspir-81] 81 mg tablet,delayed release (DR/EC) 81 mg PO DAILY ProAir RespiClick 90 mcg/actuation aerosol powdr breath activated 2 inh INHALATION Q6H PRN (Reason: Shortness Of Breath) 90 Days Qty: 3 1RF Eliquis 5 mg tablet 5 mg PO BID 90 Days Qty: 180 1RF atorvastatin 20 mg tablet 20 mg PO DAILY 90 Days Qty: 90 1RF Breztri Aerosphere 160-9-4.8 mcg/actuation HFA aerosol inhaler 2 inh inhalation BID 90 Days Qty: 10.7 1RF Rx Instructions: 90 day supply furosemide 20 mg tablet 20 mg PO DAILY 90 Days Qty: 90 1RF metoprolol succinate 25 mg tablet extended release 24 hr 25 mg PO BID 90 Days Qty: 180 1RF omeprazole 20 mg capsule,delayed release(DR/EC) 20 mg PO DAILY Qty: 90 3RF potassium chloride 10 mEq tablet extended release 10 meq PO DAILY Qty: 90 1RF Discharge Orders: Discharge ED (Routine); Ordered 02/02/25 Ordered By: Josefina Hernandez Referrals: Sandra Toledo DO [Primary Care Provider, Family Practice] Discharge Diet: Usual diet Discharge Activity: Increase activity as tolerated Patient Instructions: How to Use a Metered-Dose Inhaler and a Spacer (ED), Opioid Safety, Pain Management, Patient Portal & Mimi Instructions Activity Restrictions/Additional Instructions: Thank you for choosing [facility] for your healthcare needs today. You have been screened and evaluated and felt safe for discharge. Health conditions do change or evolve sometimes and as such it is important that you follow up with your Primary Doctor to be re checked, 3-5 days is a general good time frame for follow up. You are always welcome to return to the ED for re assessment if your symptoms are worsening or you have new concerns Print Language: Pashto Coding Level of Care Code ED Mass Spectrometry Manager for Vida Barr
[2025-02-02 08:04] LABS: Hematocrit 41.5 % (37-53); Hemoglobin 13.90 g/dL (11.27-16.99); Mean Corpuscular HGB Conc 33.5 g/dL (30-55); Mean Corpuscular Hemoglobin 33.5 pg (27-33); Mean Corpuscular Volume 100.0 fl (82-101); Nucleated Red Blood Cells % 0 %; Platelet Count 291 10^3/cmm (157-399); Red Blood Count 4.15 10^6/uL (3.85-5.65); White Blood Count 10.56 10^3/uL (3.29-11.43)
[2025-02-02 08:10] LABS: ABG PCO2 38.4 mmHg (35-45); ABG PH Result 7.43 (7.35-7.45); Alveolar-Arterial Oxygen Gradi 4.2 mmHg (5-10); Arterial Blood Gas Hematocrit 42.0 % (42-52); Blood Gas Allen Test Pos; Blood Gas Operator Identificat AMH; Blood Gas Sample Site Radial, right; Blood Gas Sample Type Arterial; Carboxyhemoglobin 2.9 %THgb (0.4-20.1); Glucose Level-ABG 100.0 mg/dL (70-115); HCO3 ABG 25.7 mmol/L (22-26); Ionized Calcium Level - ABG 1.2 mmol/L (1.1-1.4); Methemoglobin 0.1 % (0.4-1.5); Oxygen Saturation ABG 95.1; PO2 ABG 68.9 mmHg (80.0-100.0); PO2 FiO2 Ratio Arterial Blood 328; Potassium Level - ABG 3.8 mmol/L (3.5-5.0); Sodium Level - ABG 140.0 mmol/L (131-143)
[2025-02-02 08:14] VITALS: BP 128/108; PULSE 94; RESP 17; O2SAT 97
[2025-02-02 08:15] LABS: Lactic Sepsis W/Reflex 1.3 mmol/L (0.5-2.2); Troponin(5th) Baseline 19 ng/L (0-15)
[2025-02-02 08:29] LABS: Alanine Aminotransferase 15 U/L (0-41); Albumin Level 4.0 g/dL (3.5-5.2); Alkaline Phosphatase 102 U/L (40-130); Anion Gap 16.1 (5-19); Aspartate Amino Transferase 22 U/L (0-40); Blood Urea Nitrogen 11 mg/dL (8-23); Calcium 9.2 mg/dL (8.5-10.5); Carbon Dioxide 25 mmol/L (22-29); Chloride 103 mmol/L (98-107); Creatinine Clr Calc Pharmacy 65.7219; Globulin 2.8 g/dL (1.3-4.6); Glucose 103 mg/dL (65-115); NT Pro B Type Natriuretic Pept 6560 pg/mL (0-450); Osmolality Calculated 290 mOsm/kg (285-295); Potassium 4.1 mmol/L (3.5-5.1); Sodium 140 mmol/L (136-145); Total Protein 6.8 g/dL (6.6-8.7)
[2025-02-02 08:52] LABS: Respiratory Syncytial Virus Ce NEGATIVE (Negative); SARS-CoV-2 PCR NEGATIVE (Negative)
[2025-02-02 09:13] VITALS: PULSE 107; RESP 16; O2SAT 95
[2025-02-02 09:38] LABS: Troponin 5 2HR 16.72 ng/L (0-15)
--- NOTE | 2025-02-02 09:40 | ECG_ITS ---
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 Measurements Intervals [place] Rate: 108 P: 0 KS: 0 QRS: 56 QRSD: 87 T: 0 QT: 355 QTc: 477 Interpretive Statements ATRIAL FIBRILLATION WITH RAPID VENTRICULAR RESPONSE WITH ABERRANT CONDUCTION OR VENTRICULAR PREMATURE COMPLEXES ANTERIOR MYOCARDIAL INFARCTION , PROBABLY OLD [40+ ms Q WAVE AND/OR ST/T ABNORMALITY IN V3/V4] Compared to ECG 02/02/2025 07:40:47 Ventricular premature complex(es) now present Aberrant conduction of supraventricular beat(s) now present Myocardial infarct finding still present Electronically Signed On 02-02-2025 10:14:28 BILINGUAL ACCOUNT MANAGER by Hortencia Torres M.D. [email or web address]
[2025-02-02] MEDS: methylPREDNISolone sod succ 125 mg/2 mL INJ IVP (09:43)
[2025-02-02 09:45] LABS: Troponin 5 2HR Delta -2.28 ABS# (0-10)
[2025-02-02 10:05] VITALS: BP 150/86; PULSE 101; O2SAT 97
[2025-02-02] MEDS: amiodarone 150 MG/100 ML PREMIX 400 MG IV (10:11)
[2025-02-02 11:01] VITALS: BP 155/106; PULSE 96; O2SAT 95
== END 2025-02-02 11:09 | disposition home or self-care (01) ==
PROVIDERS: Emergency Provider Emergency Medicine; PCP Family Medicine
DX: J44.1 Chronic obstructive pulmonary disease with (acute) exacerbation (principal); Z79.82 Long term (current) use of aspirin; Z79.01 Long term (current) use of anticoagulants; Z11.52 Encounter for screening for COVID-19; F17.210 Nicotine dependence, cigarettes, uncomplicated; Z85.46 Personal history of malignant neoplasm of prostate; I13.0 Hypertensive heart and chronic kidney disease with heart failure and stage 1 through stage 4 chronic kidney disease, or unspecified chronic kidney disease; N18.30 Chronic kidney disease, stage 3 unspecified; I50.9 Heart failure, unspecified
CPT/HCPCS: 36415; 36600; 71045; 80051; 80053; 82330; 82805; 83605; 83880; 84484; 85025; 86140; 87040; 87637; 93005; 94640; 96374; 96375; 99285; J0283; J2919; J7613; J9999